=== PATIENT | male | born 1940 | race Caucasian/White ===

== ENCOUNTER 2016-02-23 17:47 | Inpatient (IN) | payer OTHER ==
[~2016-02-23] VITALS: Ht 180.3 cm; Wt 71.8 kg
[~2016-02-23 17:47] MED LIST: ASPCH81X PO; DOXA4TAB2 PO; HYDR25TA4 PO; IBUP1CAP9; RANI300T2 PO; VRP40 PO
[2016-02-23] MEDS ORDERED: MELO15TA4 PO (18:17)
[2016-02-23] MEDS ORDERED: ATEN-173 PO (18:17)
[2016-02-23] MEDS ORDERED: FRRG PO (18:17)
[2016-02-23 19:25] LABS: BASO % 0.1 %; BASO ABS # 0.01 K/uL (0-0.2); EOS % 0.4 %; HEMATOCRIT 28.3 % (42-52); IG% 0.3 %; LYMPH % 6.9 %; LYMPH ABS # 0.71 K/uL (1.2-3.4); MEAN CELL VOLUME 67.9 fL (80-100); MEAN CORPUSCULAR HEMOGLOBIN 22.8 pg (25-34); MEAN CORPUSCULAR HGB CONC 33.6 g/dl (32-36); MONO % 7.3 %; PLATELET COUNT 342 K/uL (130-400); RED BLOOD COUNT 4.17 M/uL (4.7-6.1); WHITE BLOOD COUNT 10.28 K/uL (4.8-10.8)
--- NOTE | 2016-02-23 19:40 | DIAGNOSTIC IMAGING REPORT ---
CHEST ONE VIEW PORTABLE HISTORY: Short of breath. COMPARISON: None. FINDINGS: Mildly tortuous thoracic aorta. The heart is normal in size. The lungs are clear. No pleural effusions. No pneumothorax. IMPRESSION: No acute process. Electronically signed by: Ed Lorenz M.D. 02/23/2016 7:38 PM Dictated Date/Time: 02/23/2016 7:37 PM
[2016-02-23 19:52] LABS: COMPLETE YES; MICROCYTOSIS PRESENT; PARTIAL THROMBOPLASTIN RATIO 0.9; PROTHROMBIN TIME (PATIENT) 11.2 SECONDS (9.0-12.0); TARGET CELLS 2+; VACUOLIZATION 2+
[2016-02-23 19:58] LABS: ALB/GLOB RATIO 0.6 (0.9-2); BUN/CREATININE RATIO 14.7 (10-20); CALCIUM 9.4 mg/dl (8.5-10.1); CKMB/CK RATIO 1.9 (0-3.0); CREATININE 1.6 mg/dl (0.60-1.40); POTASSIUM 4.4 mmol/L (3.5-5.1)
[2016-02-23] MEDS ORDERED: ENOXAPARIN 80 MG/0.8 ML SYR SQ SCH (20:00)
[2016-02-23] MEDS ORDERED: SODIUM CHLORIDE 0.9% 1000ML 1,000 ML IV STA (20:01)
[2016-02-23] MEDS ORDERED: NovoLIN-R INSULIN PER UNIT CHARGE SC STA (20:03)
[2016-02-23] MEDS ORDERED: NovoLIN-R INSULIN PER UNIT CHARGE IV STA (20:03)
[2016-02-23 20:11] LABS: BETA-HYDROXYBUTYRATE 3.39 mg/dL (0.2-2.81)
[2016-02-23] MEDS ORDERED: ENOXAPARIN 1 MG/KG SQ SCH (20:15)
--- NOTE | 2016-02-23 20:56 | EMERGENCY ROOM VISIT NOTE ---
History Report prepared by [place]: Brendan Velasquez Under the Supervision of: Dr. Johnathan Crockett D.O. First contact with patient: 18:14 Chief Complaint: SHORTNESS OF BREATH Stated Complaint: SOB, HYPERGLYCEMIA Nursing Triage Summary: Patient reports SOB increasing over the past with worsens with exertion, patient also reports drinkin excessive amounts of water and voiding more frequently than normal. Patient Denies chest pain at this time, dnies n/v also. History of Present Illness The patient is a 75 year old male who presents to the Emergency Room from [facility] with complaints of worsening shortness of breath beginning one week prior to arrival. He states his shortness of breath worsens with exertion. The patient associates a cough and weight loss with today's symptoms. As per custodial guards, the patient has lost 20 pounds since December. The patient states he was eating well when he lost weight, but he recently has not been eating well. He denies a history of lung problems. He denies chest pain, nausea, vomiting, pain or swelling in the legs, recent illness, and fever. The patient notes he does not use an inhaler. Source of History: patient Onset: one week FAMILY ENGAGEMENT SPECIALIST Position: other (global) Timing: worsening Modifying Factors (Worsening): exertion Associated Symptoms: + SOB, + cough, No chest pain, No fevers, No nausea, No vomiting Note: Associates symptoms: 20 pound weight loss since December Review of Systems See HPI for pertinent positives & negatives. A total of 10 systems reviewed and were otherwise negative. Past Medical & Surgical Medical Problems: (1) Arthritis (2) Diabetes (3) Hypertension Family History Patient reports no known family medical history. Social History Smoking Status: Current Every Day Smoker Marital Status: single Housing Status: other ([facility]) Occupation Status: other (prisoner) Current/Historical Medications Scheduled Ascorbic Acid (Vitamin C), 500 MG PO DAILY Aspirin (Aspirin Chewable), 81 MG PO DAILY Atenolol (Tenormin), 25 MG PO DAILY Ferrous Gluconate (Ferrous Gluconate), 324 MG PO BID Hydrochlorothiazide (Hctz), 25 MG PO DAILY Meloxicam (Meloxicam), 15 MG PO DAILY Omeprazole (Prilosec), 20 MG PO DAILY Tamsulosin HCl (Tamsulosin HCl), 0.4 MG PO DAILY Allergies Coded Allergies: Enalapril (Verified Allergy, Unknown, UNKNOWN, 02/23/16) Physical Exam Vital Signs Date Time Temp Pulse Resp B/P Pulse Ox O2 Delivery O2 Flow Rate FiO2 02/23/16 18:04 53 02/23/16 17:53 36.5 54 18 185/92 98 Room Air 02/23/16 17:53 98 Room Air Physical Exam CONSTITUTIONAL/VITAL SIGNS: Reviewed / noted above. GENERAL: Non-toxic in appearance. INTEGUMENTARY: Warm, dry, and [place]. HEAD: Normocephalic. EYES: without scleral icterus or trauma. ENT/OROPHARYNX: clear and moist. LYMPHADENOPATHY/NECK: Is supple without lymphadenopathy or meningismus. RESPIRATORY: Lungs clear and equal. CARDIOVASCULAR: Regular rate and rhythm. GI/ABDOMEN: Soft and nontender. No organomegaly or pulsatile mass. No rebound or guarding. Normal bowel sounds. EXTREMITIES: Warm and well perfused. BACK: No CVA tenderness. NEUROLOGICAL: Intact without focal deficits. PSYCHIATRIC: normal affect. MUSCULOSKELETAL: Normally developed with good muscle tone. Medical Decision & Procedures ER Provider Diagnostic Interpretation: X ray results and stated below per my interpretation and radiology interpretation. CHEST ONE VIEW PORTABLE HISTORY: Short of breath. COMPARISON: None. FINDINGS: Mildly tortuous thoracic aorta. The heart is normal in size. The lungs are clear. No pleural effusions. No pneumothorax. IMPRESSION: No acute process. Electronically signed by: Ed Lorenz M.D. 02/23/2016 7:38 PM Dictated Date/Time: 02/23/2016 7:37 PM Laboratory Results 02/23/16 19:17 Red Blood Count 4.17, Mean Corpuscular Volume 67.9, Mean Corpuscular Hemoglobin 22.8, Mean Corpuscular Hemoglobin Concent 33.6, Neutrophils (%) (Auto) 85.0, Lymphocytes (%) (Auto) 6.9, Monocytes (%) (Auto) 7.3, Eosinophils (%) (Auto) 0.4 , Basophils (%) (Auto) 0.1, Neutrophils # (Auto) 8.74, Lymphocytes # (Auto) 0.71 , Monocytes # (Auto) 0.75, Eosinophils # (Auto) 0.04, Basophils # (Auto) 0.01 02/23/16 19:17 Test 02/23/16 19:17 White Blood Count 10.28 K/uL (4.8-10.8) Red Blood Count 4.17 M/uL (4.7-6.1) Hemoglobin 9.5 g/dL (14.0-18.0) Hematocrit 28.3 % (42-52) Mean Corpuscular Volume 67.9 fL (80-100) Mean Corpuscular Hemoglobin 22.8 pg (25-34) Mean Corpuscular Hemoglobin Concent 33.6 g/dl (32-36) Platelet Count 342 K/uL (130-400) Neutrophils (%) (Auto) 85.0 % Lymphocytes (%) (Auto) 6.9 % Monocytes (%) (Auto) 7.3 % Eosinophils (%) (Auto) 0.4 % Basophils (%) (Auto) 0.1 % Neutrophils # (Auto) 8.74 K/uL (1.4-6.5) Lymphocytes # (Auto) 0.71 K/uL (1.2-3.4) Monocytes # (Auto) 0.75 K/uL (0.11-0.59) Eosinophils # (Auto) 0.04 K/uL (0-0.5) Basophils # (Auto) 0.01 K/uL (0-0.2) RDW Standard Deviation 41.7 fL (36.4-46.3) RDW Coefficient of Variation 17.3 % (11.5-14.5) Immature Granulocyte % (Auto) 0.3 % Immature Granulocyte # (Auto) 0.03 K/uL (0.00-0.02) Toxic Vacuolation 2+ Microcytosis PRESENT Target Cells 2+ Prothrombin Time 11.2 SECONDS (9.0-12.0) Prothromb Time International Ratio 1.0 (0.9-1.1) Activated Partial Thromboplast Time 22.9 SECONDS (21.0-31.0) Partial Thromboplastin Ratio 0.9 D-Dimer 4950 ug/L FEU (0-500) Anion Gap 8.0 mmol/L (3-11) Est Creatinine Clear Calc Drug Dose 40.7 ml/min Estimated GFR () 48.8 Estimated GFR (Non- 42.1 BUN/Creatinine Ratio 14.7 (10-20) Calcium Level 9.4 mg/dl (8.5-10.1) Total Bilirubin 10.5 mg/dl (0.2-1) Aspartate Amino Transf (AST/SGOT) 63 U/L (15-37) Alanine Aminotransferase (ALT/SGPT) 83 U/L (12-78) Alkaline Phosphatase 742 U/L (45-117) Total Creatine Kinase 354 U/L (39-308) Creatine Kinase MB 6.7 ng/ml (0.5-3.6) Creatine Kinase MB Ratio 1.9 (0-3.0) Troponin I 0.018 ng/ml (0-0.045) Pro-B-Type Natriuretic Peptide 496 pg/ml (0-900) Total Protein 7.0 gm/dl (6.4-8.2) Albumin 2.6 gm/dl (3.4-5.0) Globulin 4.4 gm/dl (2.5-4.0) Albumin/Globulin Ratio 0.6 (0.9-2) Beta-Hydroxybutyric Acid 3.39 mg/dL (0.2-2.81) Laboratory results as stated above per my review. Medications Administered Medications (Trade) Dose Ordered Sig/Renuka Route Start Time Stop Time Status Last Admin Dose Admin Sodium Chloride (Nss 1000ml) 1,000 ml @ 999 mls/hr Q1H1M STAT IV 02/23/16 20:01 02/23/16 21:01 02/23/16 20:01 999 MLS/HR Insulin Human Regular (novoLIN-R U-100 PER UNIT) 15 units NOW STAT SC 02/23/16 20:03 02/23/16 20:04 DC 02/23/16 20:22 15 UNITS Insulin Human Regular (novoLIN-R U-100 PER UNIT) 10 units NOW STAT IV 02/23/16 20:03 02/23/16 20:04 DC 02/23/16 20:03 10 UNITS Enoxaparin Sodium (Lovenox Inj) 70 mg Q12 SQ 02/23/16 20:00 02/23/16 23:59 02/23/16 20:44 70 MG ECG Indication: SOB/dyspnea Rate (beats per minute): 53 Rhythm: sinus bradycardia Findings: no ectopy, other (no acute injury ) ED Course 1815: Previous medical records were reviewed. The patient was evaluated in room B12B. A complete history and physical examination was performed. 2000: Ordered Lovenox Inj 70 mg SQ. 2001: Ordered Sodium Chloride 1,000 ml @ 999 mls/hr IV. 2003: Ordered Insulin Human Regular 10 units IV, Insulin Human Regular 15 units SC. 2015: Ordered Enoxaparin Sodium 1 ea SQ. 2018: I spoke to Martin Wilson (Hospitalist) about the patient's case, and he will follow the patient for further evaluation. Medical Decision the differential was considered includes acute myocardial infarction, acute coronary syndrome, myocarditis, pericarditis, pericardial effusions /tamponad, esophageal perforation, pulmonary embolism, pneumonia, pneumothorax, cardiomyopathy, congestive heart, anemia , COPD/asthma exacerbation. This is a 75-year-old male who presents to the ED with a chief complaint of shortness of breath for the past week. The patient also reports about 20 pounds weight loss over the past several weeks. The patient denies any recent illness, cough or fever. He states that shortness of breath is worse with walking. The patient denies any other significant complaints. His initial vital signs reveal hypertension. His EKG shows a sinus bradycardia rate of 53. His exam did not show any overt respiratory difficulty. He appears to be breathing comfortably and his oxygen saturations were 99% on room air. D-dimer was elevated 4950. The creatinine is 1.6. BUN is 24. Glucose was 722. Hemoglobin is 9.5 and sodium was 128. Troponin and BNP are normal. Chest x- ray did not show acute disease. The patient was treated with IV fluids as well as subcutaneous Lovenox, subcutaneous insulin and IV insulin. I spoke with the hospitalist, who will see the patient further inpatient care. Certainly DVT/PE is of concern with the elevated d-dimer. Either V/Q scan or if kidney function improves overnight, CT scan of the chest could be beneficial. Cancer is also a possibility due to the recent weight loss and apparently her blood sugars without a history of diabetes. Consults Time Called: 1999 Consulting Physician: Martin Wilson (Hospitalist) Returned Call: 2017 I spoke to Martin Wilson (Hospitalist) about the patient's case, and he will follow the patient for further evaluation. Impression Primary Impression: Hyperglycemia Additional Impressions: Renal insufficiency, Dyspnea, Electrolyte abnormality , Weight loss, Anemia, Hypertension Scribe Attestation The scribe's documentation has been prepared under my direction and personally reviewed by me in its entirety. I confirm that the note above accurately reflects all work, treatment, procedures, and medical decision making performed by me. Departure Information Dispostion Being Evaluated By Hospitalist (Martin Wilson (Hospitalist)) Referrals Elvin GIVENS (PCP)
[2016-02-23] MEDS ORDERED: INSULIN IV INFUSION PROTOCOL STA (21:26)
[2016-02-23] MEDS ORDERED: HHS GOAL RANGE 250-350 mg/dl ONE (21:30)
[2016-02-23] MEDS ORDERED: ONDANSETRON INJ 2 MG/ML 2 ML VIAL IV PRN (21:30)
[2016-02-23] MEDS ORDERED: SEVERE STRESS LEVEL ONE (21:30)
[2016-02-23] MEDS ORDERED: ACETAMINOPHEN 325 MG TAB PO PRN (21:30)
[2016-02-23] MEDS ORDERED: INSULIN IV INFUSION PROTOCOL SCH (21:45)
[2016-02-23] MEDS: INSULIN REGULAR 250 UNITS in SODIUM CHLORIDE 0.9% 250ML 250 ML IV SCH ×2 (22:20→23:55)
[2016-02-23] MEDS ORDERED: INSULIN HUMAN REGULAR IV BOLUS 2.5 UNIT in SYRINGE 0 ML IV ONE (22:30)
--- NOTE | 2016-02-23 22:40 | History and Physical ---
History & Physical Date & Time of Service: Feb 23, 2016 at 22:22 Chief Complaint: Shortness of Breath Primary Care Physician: Elvin GIVENS History of Present Illness 75 year old male who presents to the ER from [facility] for evaluation of shortness of breath. About one month ago, patient was found to have iron deficiency anemia. He had a colonoscopy that was unremarkable. Hgb at that time was 10.5, LFTs were WNL, glucose 130, and creatinine was 1.0. Patient reports increasing shortness of breath over the past one month. He reports he gets short of breath with minimal exertion. He also has had a sudden 20 pound weight loss. He notes increased thirst and urination. He has had a poor appetite and occasional nausea. No vomiting. He denies abdominal pain, diarrhea, or constipation. No change in bowel habits. He denies chest pain. No lightheadedness, dizziness, diaphoresis, or syncopal event. No fever or chills. He denies dysuria. In the ER, patient is found to have glucose 722, transaminitis, creat 1.6, and hgb 9.5. He was treated with insulin and IVF. Past Medical/Surgical History Medical Problems: (1) Arthritis Status: Chronic (2) Hypertension Status: Chronic Surgical Problems: (1) History of liver excision Permanent Comment: during cholecystectomy Status: Chronic (2) S/P cholecystectomy Status: Chronic Family History patient unsure of family history Social History Smoking Status: Current Every Day Smoker Alcohol Use: former Drug Use: none Multi-Drug Resistant Organisms History of MDRO: No Allergies Coded Allergies: Enalapril (Verified Allergy, Unknown, UNKNOWN, 02/23/16) Home Medications Scheduled Ascorbic Acid (Vitamin C), 500 MG PO DAILY Aspirin (Aspirin Chewable), 81 MG PO DAILY Atenolol (Tenormin), 25 MG PO DAILY Ferrous Gluconate (Ferrous Gluconate), 324 MG PO BID Hydrochlorothiazide (Hctz), 25 MG PO DAILY Meloxicam (Meloxicam), 15 MG PO DAILY Omeprazole (Prilosec), 20 MG PO DAILY Tamsulosin HCl (Tamsulosin HCl), 0.4 MG PO DAILY Review of Systems 10 point review of systems was completed with the pertinent positives and negatives noted per the HPI Physical Exam Vital Signs Date Time Temp Pulse Resp B/P Pulse Ox O2 Delivery O2 Flow Rate FiO2 02/23/16 22:15 128/69 02/23/16 21:52 48 17 02/23/16 21:33 185/92 02/23/16 21:22 53 27 99 02/23/16 20:52 67 17 98 02/23/16 20:47 46 18 02/23/16 20:17 47 24 02/23/16 19:47 57 15 98 02/23/16 19:17 55 10 100 02/23/16 18:47 55 22 99 02/23/16 18:17 53 15 02/23/16 18:04 53 02/23/16 17:53 36.5 54 18 185/92 98 Room Air 02/23/16 17:53 98 Room Air 02/23/16 17:52 185/92 General Appearance: no apparent distress, + cachetic Head: normocephalic Eyes: + abnormal sclerae exam (icteric) ENT: hearing grossly normal Neck: supple, no JVD Respiratory/Chest: lungs clear, normal breath sounds, no respiratory distress Cardiovascular: regular rate, rhythm, no edema, normal peripheral pulses Abdomen/GI: normal bowel sounds, non tender, soft Extremities/Musculoskelatal: normal inspection, no calf tenderness Neurologic/Psych: no motor/sensory deficits, alert, normal mood/affect, oriented x 3 Skin: normal color, warm/dry Diagnostics Laboratory Results Results Past 24 Hours Test 02/23/16 19:17 02/23/16 21:43 Range/Units White Blood Count 10.28 4.8-10.8 K/uL Red Blood Count 4.17 4.7-6.1 M/uL Hemoglobin 9.5 14.0-18.0 g/dL Hematocrit 28.3 42-52 % Mean Corpuscular Volume 67.9 80-100 fL Mean Corpuscular Hemoglobin 22.8 25-34 pg Mean Corpuscular Hemoglobin Concent 33.6 32-36 g/dl Platelet Count 342 130-400 K/uL Neutrophils (%) (Auto) 85.0 % Lymphocytes (%) (Auto) 6.9 % Monocytes (%) (Auto) 7.3 % Eosinophils (%) (Auto) 0.4 % Basophils (%) (Auto) 0.1 % Neutrophils # (Auto) 8.74 1.4-6.5 K/uL Lymphocytes # (Auto) 0.71 1.2-3.4 K/uL Monocytes # (Auto) 0.75 0.11-0.59 K/uL Eosinophils # (Auto) 0.04 0-0.5 K/uL Basophils # (Auto) 0.01 0-0.2 K/uL RDW Standard Deviation 41.7 36.4-46.3 fL RDW Coefficient of Variation 17.3 11.5-14.5 % Immature Granulocyte % (Auto) 0.3 % Immature Granulocyte # (Auto) 0.03 0.00-0.02 K/uL Toxic Vacuolation 2+ Microcytosis PRESENT Target Cells 2+ Prothrombin Time 11.2 9.0-12.0 SECONDS Prothromb Time International Ratio 1.0 0.9-1.1 Activated Partial Thromboplast Time 22.9 21.0-31.0 SECONDS Partial Thromboplastin Ratio 0.9 D-Dimer 4950 0-500 ug/L FEU Sodium Level 128 136-145 mmol/L Potassium Level 4.4 3.5-5.1 mmol/L Chloride Level 92 98-107 mmol/L Carbon Dioxide Level 28 21-32 mmol/L Anion Gap 8.0 3-11 mmol/L Blood Urea Nitrogen 24 7-18 mg/dl Creatinine 1.60 0.60-1.40 mg/dl Est Creatinine Clear Calc Drug Dose 40.7 ml/min Estimated GFR () 48.8 Estimated GFR (Non- 42.1 BUN/Creatinine Ratio 14.7 10-20 Random Glucose 722 70-99 mg/dl Calcium Level 9.4 8.5-10.1 mg/dl Total Bilirubin 10.5 0.2-1 mg/dl Aspartate Amino Transf (AST/SGOT) 63 15-37 U/L Alanine Aminotransferase (ALT/SGPT) 83 12-78 U/L Alkaline Phosphatase 742 45-117 U/L Total Creatine Kinase 354 39-308 U/L Creatine Kinase MB 6.7 0.5-3.6 ng/ml Creatine Kinase MB Ratio 1.9 0-3.0 Troponin I 0.018 0-0.045 ng/ml Pro-B-Type Natriuretic Peptide 496 0-900 pg/ml Total Protein 7.0 6.4-8.2 gm/dl Albumin 2.6 3.4-5.0 gm/dl Globulin 4.4 2.5-4.0 gm/dl Albumin/Globulin Ratio 0.6 0.9-2 Beta-Hydroxybutyric Acid 3.39 0.2-2.81 mg/dL Bedside Glucose 405 70-99 mg/dl Diagnostic Radiology CXR IMPRESSION: No acute process. Impression Assessment and Plan SEVERE HYPERGLYCEMIA - admit to tele - presenting with blood sugar 722, noted to be 130 on outpatient labs from - no signs of acidosis - start insulin gtt - IVF - check hgb a1c JEANA - likely due to severe hyperglycemia - IVF - hold HCTZ - follow up labs in AM, avoid nephrotoxic agents when able PSEUDOHYPONATREMIA - due to hypoglycemia - corrected Na+ 138 SHORTNESS OF BREATH - need to rule out PE with concern for possible underlying malignancy - unable to do CTA due to renal function - should improve with IVF; will do in AM if renal function improves - received therapeutic dose Lovenox x 1 in ED; hold on further anticoagulation for now TRANSAMINITIS - check RUQ US to r/o obstruction - concern for underlying malignancy due to weight loss and anemia - if renal function improved in AM, will get CT abd/pelvis with contrast ANEMIA - hgb 9.5, no role for transfusion at this time - colonoscopy 01/2016 negative per note sent from [facility] - continue to monitor hgb HTN - BP elevated on arrival, however now improved - holding HCTZ due to JEANA and holding atenolol due to bradycardia - PRN hydralazine for now BRADYCARDIA - HR noted to be 40s-50s during my exam - EKG shows sinus bradycardia - holding beta sade - monitor in tele DVT PROPHYLAXIS - received therapeutic dose Lovenox x 1 - will cover until AM CODE STATUS - Patient is a full code as per my discussion with him. DISPO - In my clinical judgment this beneficiary meets acute admission criteria, established by [facility], that includes being hospitalized through two midnights. ADDENDUM: This is a 75 year old male who comes from [facility] due to shortness of breath and decreased PO intake with a 20lbs unintentional weight loss in the past month. He has a history of HTN, but no other issues to note. He had a routine colonoscopy last month with no findings. Upon presentation here; he was found to have multiple problems on lab work, including a blood sugar level of > 700. He had elevated transaminases, elevated d-dimer, elevated creat level. Plan for the patient: Start insulin drip, give IVFs Once creat improves; obtain CTA chest to r/o PE, obtain CT abdomen/pelvis as well due to elevated transaminases concern for malignancy with unintentional weight loss and multiple lab abnormalities VTE Prophylaxis VTE Risk Assessment Done? Y/N: Yes Risk Level: Moderate
[2016-02-23] MEDS ORDERED: HydrALAZINE HCL 20 MG/ML VIAL IV. PRN (22:45)
[2016-02-23] MEDS ORDERED: SODIUM CHLORIDE 0.9% 1000ML 1,000 ML IV SCH (22:45)
[2016-02-23] MEDS ORDERED: GLUCOSE 10 TABS/TUBE PO PRN (23:00)
[2016-02-23] MEDS ORDERED: GLUCOSE 40% GEL 15 GM TUBE PO PRN (23:00)
[2016-02-23] MEDS ORDERED: GLUCAGON FOR INJ 1 MG VIAL SQ PRN (23:00)
[2016-02-23] MEDS ORDERED: DEXTROSE 50% 50 ML SYR IV PRN (23:00)
[2016-02-23 23:10] VITALS: BP 125/79; PULSE 62; TEMP 36.7; O2SAT 100; BMI 19.7
[2016-02-24] VITALS (9 sets, daily range): BP systolic 128–168; BP diastolic 71–97; PULSE 39–58; TEMP 36.6–36.9; O2SAT 99–100; Ht 180.3 cm; Wt 71.8 kg
[2016-02-24] MEDS: D5W AND NSS 1,000 ML IV SCH ×2 (02:33→10:28)
[2016-02-24] MEDS ORDERED: PHARMACY GLYCEMIC MGMT CONSULT PRN (02:45)
[2016-02-24] MEDS: INSULIN REGULAR 250 UNITS in SODIUM CHLORIDE 0.9% 250ML 250 ML IV SCH ×5 (03:15→13:05)
[2016-02-24 06:25] LABS: ESTIMATED AVERAGE GLUCOSE 229 mg/dl; HA1C FLAG Normal (Normal)
--- NOTE | 2016-02-24 06:51 | DIAGNOSTIC IMAGING REPORT ---
BILIARY ULTRASOUND CLINICAL HISTORY: Abnormal liver functions COMPARISON STUDY: No previous studies for comparison. FINDINGS: The gallbladder surgically absent. There is intrahepatic biliary ductal dilatation. There is dilatation of the common bile duct which measures 2.6 cm. The liver is subtly heterogeneous in echotexture. The pancreas was poorly visualized. There is equivocal soft tissue mass in the region of the pancreatic head. There is no right-sided hydronephrosis. IMPRESSION: 1. Intra and extrahepatic biliary ductal dilatation. Equivocal soft tissue mass in the region of the pancreatic head. CT scanning should be considered in follow-up. Electronically signed by: Derrick Way M.D. 02/24/2016 6:49 AM Dictated Date/Time: 02/24/2016 6:46 AM
[2016-02-24 07:31] LABS: HEMATOCRIT 27.4 % (42-52); MEAN CELL VOLUME 68.3 fL (80-100); MEAN CORPUSCULAR HEMOGLOBIN 22.9 pg (25-34); MEAN CORPUSCULAR HGB CONC 33.6 g/dl (32-36); PLATELET COUNT 325 K/uL (130-400); RED BLOOD COUNT 4.01 M/uL (4.7-6.1); WHITE BLOOD COUNT 10.48 K/uL (4.8-10.8)
[2016-02-24] MEDS: TAMSULOSIN HCL 0.4 MG CAP PO SCH (07:58)
[2016-02-24] MEDS: PANTOprazole SOD 40 MG TAB PO SCH (07:58)
[2016-02-24] MEDS: FERROUS GLUCONATE 324 MG TAB PO SCH ×2 (07:58→20:45)
[2016-02-24] MEDS: ASPIRIN 81 MG ECTAB PO SCH (07:58)
[2016-02-24] MEDS ORDERED: INSULIN ASPART 100 UNITS/ML 3 ML PEN SC SCH (08:00)
[2016-02-24 08:20] LABS: BUN/CREATININE RATIO 19.7 (10-20); CALCIUM 9.4 mg/dl (8.5-10.1); CREATININE 1.1 mg/dl (0.60-1.40); POTASSIUM 3.6 mmol/L (3.5-5.1)
[2016-02-24] MEDS ORDERED: INSULIN GLARGINE SOLOSTAR 100 UNITS/ML 3 ML PEN SC SCH (09:45)
[2016-02-24] MEDS ORDERED: OPTIRAY 320 IV PRN (10:00)
[2016-02-24] MEDS: INSULIN ASPART 100 UNITS/ML 3 ML PEN SC SCH ×3 (11:00→20:44)
--- NOTE | 2016-02-24 16:20 | Pharmacy Progress Note ---
Glycemic Control Intl Consult Date of Service Feb 24, 2016. Scope Glycemic Pharmacist consulted by Elias OMER on 02/23/16 for glycemic control and to write orders per [facility] inpatient glycemic control protocol Objective Weight (Kilograms): 64.500 Accuchecks BSG (last 24hrs): Test 02/23/16 19:17 02/23/16 21:43 02/23/16 23:18 02/24/16 00:59 Random Glucose 722 mg/dl (70-99) Bedside Glucose 405 mg/dl (70-99) 260 mg/dl (70-99) 205 mg/dl (70-99) Test 02/24/16 01:22 02/24/16 02:13 02/24/16 03:23 02/24/16 04:14 Bedside Glucose 214 mg/dl (70-99) 186 mg/dl (70-99) 223 mg/dl (70-99) 210 mg/dl (70-99) Test 02/24/16 05:29 02/24/16 06:33 02/24/16 06:55 02/24/16 07:50 Bedside Glucose 166 mg/dl (70-99) 162 mg/dl (70-99) 114 mg/dl (70-99) Random Glucose 96 mg/dl (70-99) Test 02/24/16 08:07 02/24/16 08:33 02/24/16 08:53 02/24/16 09:56 Bedside Glucose 99 mg/dl (70-99) 120 mg/dl (70-99) 175 mg/dl (70-99) 247 mg/dl (70-99) Test 02/24/16 10:59 02/24/16 12:13 02/24/16 13:18 02/24/16 14:43 Bedside Glucose 220 mg/dl (70-99) 215 mg/dl (70-99) 235 mg/dl (70-99) 218 mg/dl (70-99) Test 02/24/16 15:35 Bedside Glucose 139 mg/dl (70-99) Laboratory Data (last 24hrs) Test 02/23/16 19:17 02/24/16 06:55 Anion Gap 8.0 mmol/L 10.0 mmol/L BUN/Creatinine Ratio 14.7 19.7 Blood Urea Nitrogen 24 mg/dl 22 mg/dl Creatinine 1.60 mg/dl 1.10 mg/dl Hemoglobin A1c 9.6 % Potassium Level 4.4 mmol/L 3.6 mmol/L Sodium Level 128 mmol/L 139 mmol/L White Blood Count 10.28 K/uL 10.48 K/uL Red Blood Count 4.17 M/uL Hemoglobin 9.5 g/dL Hematocrit 28.3 % Mean Corpuscular Volume 67.9 fL Mean Corpuscular Hemoglobin 22.8 pg Mean Corpuscular Hemoglobin Concent 33.6 g/dl Platelet Count 342 K/uL Neutrophils (%) (Auto) 85.0 % Lymphocytes (%) (Auto) 6.9 % Monocytes (%) (Auto) 7.3 % Eosinophils (%) (Auto) 0.4 % Basophils (%) (Auto) 0.1 % Neutrophils # (Auto) 8.74 K/uL Lymphocytes # (Auto) 0.71 K/uL Monocytes # (Auto) 0.75 K/uL Eosinophils # (Auto) 0.04 K/uL Basophils # (Auto) 0.01 K/uL HbA1c Test 02/23/16 19:17 Hemoglobin A1c 9.6 % (4.5-5.6) H Recent Pertinent Medications Outpatient Anti-diabetic Regimen: * N/A * A1c = 9.6 % 02/23/16 The patient is currently receiving: * Basal insulin: Insulin drip per infusion rate calculator * Correctional Insulin: per insulin infusion rate calculator * Prandial insulin: Per carb ratio per insulin infusion rate calculator * Oral Agents: none Risk Factors for Insulin Resistance: * Steroids: no * Infection: no * Pressors: no * IVF: D5NS @ 125 ml/hr, now dc'd * Recent Surgery: no * Diet: type 2 diabetic * Mechanical Ventilation: no Assessment & Plan ASSESSMENT: * ADA & AACE recommend a goal blood sugar range 140-180 mg/dl for the majority of critically ill & non-critically ill patients. However, more stringent targets may be selected in individual cases. * 75 yo previously undiagnosed diabetic. Admitted with SOB, BSG's over 700. Recent 20 lb wt loss, polydipsia, polyuria. Insulin drip started and BSG's now in goal range. Will transition to SQ basal/bolus insulin (weight-based). PLAN FOR INPATIENT GLYCEMIC CONTROL: * Basal insulin with LANTUS 15 units SQ x 1 dose, then 10 units BID, give 1/2 dose if BSG is less than 110 * Continue insulin drip per protocol (new goal range 140-180) for 6 hr after 1st dose of Lantus, or until titrated off by insulin infusion rate calculator, whichever comes first. * Correctional Insulin with NOVOLOG per scale ACHS or Q6hrs while NPO * Goal Range: Low 110 mg/dL - High 150 mg/dL * Correction Factor: 35 mg/dL/unit * Nutritional / Prandial insulin per carb ratio of 1 unit per 15 grams CHO consumed * Please note that the plan above was derived based on current level of insulin resistance and hospital stress. These recommendations are appropriate for inpatient admission only. Plan of care upon discharge will need to be reassessed to avoid potential outpatient hypo/hyperglycemia. Thank you.
--- NOTE | 2016-02-24 17:03 | DIAGNOSTIC IMAGING REPORT ---
CHEST CTA for PULMONARY ARTERIES CT DOSE: 1018.05 mGy.cm HISTORY: Short of breath. TECHNIQUE: Multiaxial CT images of the chest were performed following the intravenous administration of contrast to evaluate the pulmonary arteries. Maximal intensity projection images were also obtained. COMPARISON STUDY: Abdomen and pelvis CT 02/24/2016. FINDINGS: Normal caliber thoracic aorta with no evidence for dissection. Trace right pleural effusion. No pericardial effusion. There are few scattered segmental and subsegmental pulmonary emboli. This is most pronounced within the bilateral lower lobes. The main and lobar pulmonary arteries are patent. Small sclerotic focus within the left lateral ninth rib favors a bone island. No suspicious lytic or blastic osseous lesions. No pneumothorax. Mild emphysema. The central airways are patent. Mild dependent changes seen within the right lung base posteriorly. No focal lung consolidations to suggest pneumonia. Severe biliary and pancreatic duct dilatation. Partially visualized pancreatic mass. There are few hypodense lesions within the liver consistent with metastatic disease. Questionable 12 mm soft tissue nodule abutting the anterior pericardium. This is immediately deep to the xiphoid. No mediastinal or hilar lymphadenopathy. IMPRESSION: 1. Multiple scattered bilateral segmental and subsegmental pulmonary emboli. 2. Trace right pleural effusion. 3. Emphysema. 4. Pancreatic mass with associated biliary and pancreatic duct dilatation. There are also a few hepatic metastatic lesions. Please refer to the same day abdomen CT for further evaluation. 5. Possible 12 mm soft tissue nodule abutting the anterior pericardium. Follow-up is recommended to exclude the possibility of a metastatic lesion. Electronically signed by: Ed Lorenz M.D. 02/24/2016 5:01 PM Dictated Date/Time: 02/24/2016 4:51 PM
--- NOTE | 2016-02-24 17:05 | DIAGNOSTIC IMAGING REPORT ---
CT OF THE ABDOMEN AND PELVIS WITH AND WITHOUT CONTRAST PANCREAS PROTOCOL CLINICAL HISTORY: Possible pancreatic mass. Elevated bilirubin. TECHNIQUE: Enhanced, arterial and venous phase was performed. Injection of 119 cc Optiray 320 IV was uneventful. Oral contrast was administered. COMPARISON STUDY: Right upper quadrant ultrasound February 23, 2016. FINDINGS: The chest will be reported separately. There are numerous peripherally hypervascular bilobar hepatic lesions that measure up to 1.8 cm. These are consistent with metastases. There is marked intra and extra hepatic biliary ductal dilatation with abrupt narrowing of the distal common bile duct. This is likely due to a mass within the uncinate process and head of the pancreas. Exact measurements of the mass are difficult to obtain but this mass measures up to 5.5 x 4.4 cm. There is marked dilatation of the pancreatic duct with abrupt cut off at the level of this mass. There are pancreatic parenchymal calcifications. A few enlarged peripancreatic lymph nodes are noted. These may be necrotic. These measure up to 1.9 cm in short axis diameter. There is moderate narrowing of the portosplenic confluence. The portal vein remains patent. There are numerous renal cysts. There is moderate renal atrophy with multifocal scarring. The spleen and adrenal glands are unremarkable. There is no evidence for a bowel obstruction. Evaluation is difficult given a paucity of fat. There is extensive atherosclerotic plaque of the Major vessels. The abdominal aorta is ectatic, measuring up to 2.9 cm. No suspicious osseous lesions are present. There is no ascites. The superior mesenteric artery is patent. IMPRESSION: 1. Findings highly suggestive of metastatic pancreatic adenocarcinoma. Uncinate process/pancreatic head mass measuring approximately 5.5 cm with associated biliary and pancreatic ductal dilatation, numerous hepatic metastases and several pathologic peripancreatic lymph nodes. GI consultation for consideration for endoscopic sampling is recommended. 2. Pancreatic parenchymal calcifications suggestive of chronic pancreatitis. Electronically signed by: Zheng Bennett M.D. 02/24/2016 5:03 PM Dictated Date/Time: 02/24/2016 4:51 PM
[2016-02-24] MEDS ORDERED: HEPARIN IV LOW DOSE NO BOLUS SCH (18:15)
--- NOTE | 2016-02-24 18:27 | Progress Note ---
Medicine Progress Note Date & Time of Visit: Feb 24, 2016 at 18:11. Subjective Patient seen and examined. Feels that his breathing has improved today. Denies any abdominal pain. Does feel itchy. Objective Last 8 Hrs Date Time Temp Pulse Resp B/P Pulse Ox O2 Delivery O2 Flow Rate FiO2 02/24/16 15:34 36.8 43 16 153/91 100 Room Air 02/24/16 12:24 Room Air 02/24/16 11:36 36.6 39 18 168/79 100 Room Air Physical Exam: General-awake; alert; NAD Eyes-EOMI; muddy sclera Neck-no stridor; trachea midline Lungs-CTA bilaterally; no wheezes/crackles Heart-RRR; no m/r/g Abdomen-soft; mild upper quadrant tenderness to palpation; ND; nBS Extremities-no c/c/e; no deformity Neuro-no gross focal deficits Laboratory Results: Last 24 Hours Test 02/23/16 19:17 02/23/16 21:43 02/23/16 23:18 02/24/16 00:59 White Blood Count 10.28 K/uL Red Blood Count 4.17 M/uL Hemoglobin 9.5 g/dL Hematocrit 28.3 % Mean Corpuscular Volume 67.9 fL Mean Corpuscular Hemoglobin 22.8 pg Mean Corpuscular Hemoglobin Concent 33.6 g/dl Platelet Count 342 K/uL Neutrophils (%) (Auto) 85.0 % Lymphocytes (%) (Auto) 6.9 % Monocytes (%) (Auto) 7.3 % Eosinophils (%) (Auto) 0.4 % Basophils (%) (Auto) 0.1 % Neutrophils # (Auto) 8.74 K/uL Lymphocytes # (Auto) 0.71 K/uL Monocytes # (Auto) 0.75 K/uL Eosinophils # (Auto) 0.04 K/uL Basophils # (Auto) 0.01 K/uL RDW Standard Deviation 41.7 fL RDW Coefficient of Variation 17.3 % Immature Granulocyte % (Auto) 0.3 % Immature Granulocyte # (Auto) 0.03 K/uL Toxic Vacuolation 2+ Microcytosis PRESENT Target Cells 2+ Prothrombin Time 11.2 SECONDS Prothromb Time International Ratio 1.0 Activated Partial Thromboplast Time 22.9 SECONDS Partial Thromboplastin Ratio 0.9 D-Dimer 4950 ug/L FEU Sodium Level 128 mmol/L Potassium Level 4.4 mmol/L Chloride Level 92 mmol/L Carbon Dioxide Level 28 mmol/L Anion Gap 8.0 mmol/L Blood Urea Nitrogen 24 mg/dl Creatinine 1.60 mg/dl Est Creatinine Clear Calc Drug Dose 40.7 ml/min Estimated GFR () 48.8 Estimated GFR (Non- 42.1 BUN/Creatinine Ratio 14.7 Random Glucose 722 mg/dl Estimated Average Glucose 229 mg/dl Hemoglobin A1c 9.6 % Calcium Level 9.4 mg/dl Total Bilirubin 10.5 mg/dl Aspartate Amino Transf (AST/SGOT) 63 U/L Alanine Aminotransferase (ALT/SGPT) 83 U/L Alkaline Phosphatase 742 U/L Total Creatine Kinase 354 U/L Creatine Kinase MB 6.7 ng/ml Creatine Kinase MB Ratio 1.9 Troponin I 0.018 ng/ml Pro-B-Type Natriuretic Peptide 496 pg/ml Total Protein 7.0 gm/dl Albumin 2.6 gm/dl Globulin 4.4 gm/dl Albumin/Globulin Ratio 0.6 Beta-Hydroxybutyric Acid 3.39 mg/dL Bedside Glucose 405 mg/dl 260 mg/dl 205 mg/dl Test 02/24/16 01:22 02/24/16 02:13 02/24/16 03:23 02/24/16 04:14 Bedside Glucose 214 mg/dl 186 mg/dl 223 mg/dl 210 mg/dl Test 02/24/16 05:29 02/24/16 06:33 02/24/16 06:55 02/24/16 07:50 Bedside Glucose 166 mg/dl 162 mg/dl 114 mg/dl White Blood Count 10.48 K/uL Red Blood Count 4.01 M/uL Hemoglobin 9.2 g/dL Hematocrit 27.4 % Mean Corpuscular Volume 68.3 fL Mean Corpuscular Hemoglobin 22.9 pg Mean Corpuscular Hemoglobin Concent 33.6 g/dl RDW Standard Deviation 43.0 fL RDW Coefficient of Variation 17.4 % Platelet Count 325 K/uL Sodium Level 139 mmol/L Potassium Level 3.6 mmol/L Chloride Level 102 mmol/L Carbon Dioxide Level 27 mmol/L Anion Gap 10.0 mmol/L Blood Urea Nitrogen 22 mg/dl Creatinine 1.10 mg/dl Est Creatinine Clear Calc Drug Dose 54.6 ml/min Estimated GFR () 76.8 Estimated GFR (Non- 66.2 BUN/Creatinine Ratio 19.7 Random Glucose 96 mg/dl Calcium Level 9.4 mg/dl Total Bilirubin 9.1 mg/dl Direct Bilirubin 8.1 mg/dl Aspartate Amino Transf (AST/SGOT) 65 U/L Alanine Aminotransferase (ALT/SGPT) 73 U/L Alkaline Phosphatase 661 U/L Total Protein 6.4 gm/dl Albumin 2.2 gm/dl Test 02/24/16 08:07 02/24/16 08:33 02/24/16 08:53 02/24/16 09:56 Bedside Glucose 99 mg/dl 120 mg/dl 175 mg/dl 247 mg/dl Test 02/24/16 10:59 02/24/16 12:13 02/24/16 13:18 02/24/16 14:43 Bedside Glucose 220 mg/dl 215 mg/dl 235 mg/dl 218 mg/dl Test 02/24/16 15:35 02/24/16 16:03 02/24/16 16:24 Bedside Glucose 139 mg/dl 130 mg/dl 108 mg/dl Assessment & Plan POSSIBLE METASTATIC PANCREATIC CANCER - patient with unintentional weight loss over the past month - liver ultrasound with intra and extrahepatic biliary ductal dilatation and soft tissue mass in pancreatic head - CT a/p highly suggestive of metastatic pancreatic adenocarcinoma - GI consulted BILATERAL PE - likely related to underlying malignancy - start low dose heparin drip SEVERE HYPERGLYCEMIA - improved - on admission - started on insulin drip and was transitioned to insulin sq - hgb a1c of 9.6 - glycemic pharmacy consulted JEANA - resolved - likely due to severe hyperglycemia - resolved with IVF - hold HCTZ ANEMIA - hgb stable in 's - colonoscopy 01/2016 negative per note sent from [facility] - check folate, b12 and iron studies - may be related to underlying malignancy HTN - BP elevated on arrival, however improved - holding HCTZ and atenolol - PRN hydralazine for now BRADYCARDIA - HR 40s-50s - EKG shows sinus bradycardia - holding beta sade - monitor in tele DVT PROPHYLAXIS - heparin drip CODE STATUS - full code Consultants: Gastroenterology Procedures: Liver ultrasound 1. Intra and extrahepatic biliary ductal dilatation. Equivocal soft tissue mass in the region of the pancreatic head. CT scanning should be considered in follow -up. CT Chest 1. Multiple scattered bilateral segmental and subsegmental pulmonary emboli. 2. Trace right pleural effusion. 3. Emphysema. 4. Pancreatic mass with associated biliary and pancreatic duct dilatation. There are also a few hepatic metastatic lesions. Please refer to the same day abdomen CT for further evaluation. 5. Possible 12 mm soft tissue nodule abutting the anterior pericardium. Follow- up is recommended to exclude the possibility of a metastatic lesion. CT a/p 1. Findings highly suggestive of metastatic pancreatic adenocarcinoma. Uncinate process/pancreatic head mass measuring approximately 5.5 cm with associated biliary and pancreatic ductal dilatation, numerous hepatic metastases and several pathologic peripancreatic lymph nodes. GI consultation for consideration for endoscopic sampling is recommended. 2. Pancreatic parenchymal calcifications suggestive of chronic pancreatitis. Current Inpatient Medications: Current Inpatient Medications Medications (Trade) Dose Ordered Sig/Renuka Route Start Time Stop Time Status Last Admin Dose Admin Acetaminophen (Tylenol Tab) 650 mg Q4H PRN PO 02/23/16 21:30 03/24/16 21:29 Ondansetron HCl (Zofran Inj) 4 mg Q6H PRN IV 02/23/16 21:30 03/24/16 21:29 Aspirin (Ecotrin Tab) 81 mg QAM PO 02/24/16 09:00 03/25/16 08:59 02/24/16 07:58 81 MG Ferrous Gluconate (Ferrous Gluconate Tab) 324 mg BID PO 02/24/16 09:00 03/25/16 08:59 02/24/16 07:58 324 MG Tamsulosin HCl (Flomax Cap) 0.4 mg DAILY PO 02/24/16 09:00 03/25/16 08:59 02/24/16 07:58 0.4 MG Pantoprazole Sodium (Protonix Tab) 40 mg QAM PO 02/24/16 09:00 03/25/16 08:59 02/24/16 07:58 40 MG Hydralazine HCl (HydrALAZINE INJ) 10 mg Q6H PRN IV. 02/23/16 22:45 03/24/16 22:44 Glucose (Glucose 40% Gel) 15-30 GRAMS 15 GRAMS... UD PRN PO 02/23/16 23:00 03/24/16 22:59 Glucose (Glucose Chew Tab) 4-8 Tablets 4 Tabl... UD PRN PO 02/23/16 23:00 03/24/16 22:59 Dextrose (Dextrose 50% 50ML Syringe) 25-50ML OF 50% DW IV FOR... UD PRN IV 02/23/16 23:00 03/24/16 22:59 Glucagon (Glucagon Inj) 1 mg UD PRN SQ 02/23/16 23:00 03/24/16 22:59 Miscellaneous Information (Consult Glycemic Management Pharmacy) 1 ea UD PRN N/A 02/24/16 02:45 03/25/16 02:44 Insulin Glargine (Lantus Solostar Pen) 10 unit BID SC 02/24/16 21:00 03/25/16 20:59 Insulin Aspart (novoLOG ASPART) SLIDING SCALE ACHS SC 02/24/16 11:00 03/25/16 10:59 02/24/16 11:00 2 UNITS Ioversol (Optiray 320) 125 ml UD PRN IV 02/24/16 10:00 02/28/16 09:59
[2016-02-24 18:54] LABS: HEMATOCRIT 28.7 % (42-52); MEAN CELL VOLUME 68.8 fL (80-100); MEAN CORPUSCULAR HEMOGLOBIN 23.5 pg (25-34); PLATELET COUNT 325 K/uL (130-400); RED BLOOD COUNT 4.17 M/uL (4.7-6.1); WHITE BLOOD COUNT 10.43 K/uL (4.8-10.8)
[2016-02-24 19:06] LABS: INR 1.1 (0.9-1.1); MEAN CORPUSCULAR HGB CONC 34.1 g/dl (32-36); PARTIAL THROMBOPLASTIN RATIO 0.9; PROTHROMBIN TIME (PATIENT) 11.3 SECONDS (9.0-12.0)
[2016-02-24] MEDS: HEPARIN 25,000 UNIT/500ML D5W 500 ML IV PRN (19:27)
[2016-02-24] MEDS: INSULIN GLARGINE SOLOSTAR 100 UNITS/ML 3 ML PEN SC SCH (20:44)
[2016-02-25] VITALS (12 sets, daily range): BP systolic 107–180; BP diastolic 60–96; PULSE 57–99; TEMP 36.8–37; O2SAT 99–100
[2016-02-25 01:32] LABS: BASO % 0.1 %; BASO ABS # 0.01 K/uL (0-0.2); EOS % 1.6 %; HEMATOCRIT 26.1 % (42-52); IG% 0.4 %; LYMPH ABS # 0.97 K/uL (1.2-3.4); MEAN CELL VOLUME 68.1 fL (80-100); MEAN CORPUSCULAR HEMOGLOBIN 23.5 pg (25-34); MONO % 8.2 %; NEUT % 80.7 %; PLATELET COUNT 299 K/uL (130-400); RED BLOOD COUNT 3.83 M/uL (4.7-6.1); WHITE BLOOD COUNT 10.79 K/uL (4.8-10.8)
[2016-02-25 01:34] LABS: MEAN CORPUSCULAR HGB CONC 34.5 g/dl (32-36)
[2016-02-25 01:41] LABS: PARTIAL THROMBOPLASTIN RATIO 1.1
[2016-02-25 01:56] LABS: COMPLETE YES; MICROCYTOSIS PRESENT; TARGET CELLS 2+
[2016-02-25] MEDS ORDERED: HEPARIN IV BOLUS 4,500 UNIT in SYRINGE 0 ML IV STA (03:14)
[2016-02-25] MEDS: HEPARIN 25,000 UNIT/500ML D5W 500 ML IV PRN ×5 (03:45→22:40)
[2016-02-25 06:38] LABS: HEMATOCRIT 26.3 % (42-52); MEAN CELL VOLUME 66.4 fL (80-100); MEAN CORPUSCULAR HEMOGLOBIN 23.2 pg (25-34); PLATELET COUNT 319 K/uL (130-400); RED BLOOD COUNT 3.96 M/uL (4.7-6.1)
[2016-02-25] MEDS: INSULIN ASPART 100 UNITS/ML 3 ML PEN SC SCH ×5 (06:50→21:32)
[2016-02-25 06:58] LABS: PARTIAL THROMBOPLASTIN RATIO 2.3
[2016-02-25 07:11] LABS: ALB/GLOB RATIO 0.5 (0.9-2); BUN/CREATININE RATIO 13.3 (10-20); CALCIUM 8.9 mg/dl (8.5-10.1); FERRITIN 906.4 ng/ml (8.0-388.0); POTASSIUM 3.5 mmol/L (3.5-5.1)
[2016-02-25] MEDS: ASPIRIN 81 MG ECTAB PO SCH (08:06)
[2016-02-25] MEDS: FERROUS GLUCONATE 324 MG TAB PO SCH (08:07)
[2016-02-25] MEDS: PANTOprazole SOD 40 MG TAB PO SCH (08:07)
[2016-02-25] MEDS: TAMSULOSIN HCL 0.4 MG CAP PO SCH (08:07)
[2016-02-25] MEDS: INSULIN GLARGINE SOLOSTAR 100 UNITS/ML 3 ML PEN SC SCH (08:09)
--- NOTE | 2016-02-25 11:25 | Gastrointestinal Consultation ---
Gastrointestinal Consultation Date of Consultation: Feb 25, 2016 Attending Physician: Dr. Kim Walter Consulting Physician: Dr. Vinnie Mccain Reason for Consultation: Eval for possible metastatic pancreas cancer History of Present Illness Patient is a 75 year old male inmate from [facility] who was admitted currently for hyperglycemia management. He has hx of iron deficiency anemia, had SOB on exertion accompanied by increased thirst, urination and about 20lbs weight loss within last month. He was found to have glucose of 722 on admission , treated w insulin. He was also noted to have elevated LFTs on admission: Tbili 11, Dbili 8.1, AST 84, ALT 73, Alk phos 647. Liver u/s obtained and revealed intra/extra hepatic biliary ductal dilation. CBD measured 2.3cm. He also has a soft tissue mass in pancreas head region. This was followed by CT abd /pelvis and also Chest CTA given SOB on exertion. CTA showed scattered bilateral PEs, R pleural effusion, emphysema. He is currently on Heparin gtt. CT abd/pelvis showed again intra/extra hepatic biliary dilation, narrowing of distal CBD. Mass on pancreas head and within the uncinate area measured up to 5.5 x 4.4 cm. Pancreatic parenchyma calcification suggestive of pancreatitis. There is also marked dilation of pancreatic duct, some peripancreatic lymph node enlargement. Portal vein, SMA patent. He also has numerous hepatic masses suspicious for metastatic lesion. He denies any fever, chills, + SOB w exertion, no CP. Some RUQ abd pain, no n/v , urine has been dark x 2 week, normal colored stool no constipation or diarrhea issues. Past Medical/Surgical History Medical Problems: (1) Hypertension Status: Chronic Past Medical History: Arthritis HTN Past Surgical History: Cholecystectomy Family History Patient reports no known family medical history. Social History Smoking Status: Current Every Day Smoker Alcohol Use: other (hx of heavy etoh use) Drug Use: none Housing Status: other ([facility]) Allergies Coded Allergies: Enalapril (Verified Allergy, Unknown, UNKNOWN, 02/23/16) Current Medications Home Meds and Scripts Medications Dose Route/Sig Max Daily Dose Days Date Category Vitamin C (Ascorbic Acid) 500 Mg Tab 500 Mg PO DAILY 02/23/16 Reported Tamsulosin HCl 0.4 Mg Cap 0.4 Mg PO DAILY 02/23/16 Reported Prilosec (Omeprazole) 20 Mg Capcr 20 Mg PO DAILY 02/23/16 Reported Meloxicam 15 Mg Tab 15 Mg PO DAILY 02/23/16 Reported Ferrous Gluconate 324 Mg Tab 324 Mg PO BID 02/23/16 Reported Tenormin (Atenolol) 25 Mg Tab 25 Mg PO DAILY 02/23/16 Reported Hctz (Hydrochlorothiazide) 25 Mg Tab 25 Mg PO DAILY 01/01/13 Reported Aspirin Chewable (Aspirin) 81 Mg Chew 81 Mg PO DAILY 01/01/13 Reported Review of Systems Constitutional: No chills, No fever Respiratory: No cough Cardiac: No chest pain Abdomen: + pain, No constipation, No diarrhea, No nausea, No vomiting Male : + see HPI Physical Exam Date Time Temp Pulse Resp B/P Pulse Ox O2 Delivery O2 Flow Rate FiO2 02/25/16 09:57 65 107/69 02/25/16 08:35 180/91 02/25/16 08:26 36.8 99 20 180/91 99 Room Air 02/25/16 08:00 Room Air 02/25/16 04:13 36.9 59 22 164/91 100 Room Air 02/25/16 04:00 100 Room Air 02/25/16 00:01 100 Room Air 02/24/16 23:48 36.9 57 19 159/89 100 Room Air 02/24/16 20:13 36.9 58 18 158/97 99 Room Air 02/24/16 20:00 100 Nasal Cannula 02/24/16 20:00 Room Air 02/24/16 16:00 100 Nasal Cannula 02/24/16 15:34 36.8 43 16 153/91 100 Room Air 02/24/16 12:24 Room Air 02/24/16 11:36 36.6 39 18 168/79 100 Room Air General Appearance: + thin Eyes: + pertinent finding (icteric sclera) Neck: supple, no JVD, trachea midline Respiratory/Chest: no respiratory distress, no accessory muscle use, + decreased breath sounds Cardiovascular: regular rate, rhythm, no gallop, no murmur Abdomen: soft, + tenderness (RUQ, periumbilical), + mass (L mid abd area) Extremities: normal inspection, no pedal edema, no calf tenderness Neurologic/Psych: alert, normal mood/affect, oriented x 3 Laboratory Results Last 24 Hours Test 02/24/16 12:13 02/24/16 13:18 02/24/16 14:43 02/24/16 15:35 Bedside Glucose 215 mg/dl 235 mg/dl 218 mg/dl 139 mg/dl Test 02/24/16 16:03 02/24/16 16:24 02/24/16 18:40 02/24/16 20:06 Bedside Glucose 130 mg/dl 108 mg/dl 187 mg/dl White Blood Count 10.43 K/uL Red Blood Count 4.17 M/uL Hemoglobin 9.8 g/dL Hematocrit 28.7 % Mean Corpuscular Volume 68.8 fL Mean Corpuscular Hemoglobin 23.5 pg Mean Corpuscular Hemoglobin Concent 34.1 g/dl RDW Standard Deviation 43.1 fL RDW Coefficient of Variation 17.6 % Platelet Count 325 K/uL Prothrombin Time 11.3 SECONDS Prothromb Time International Ratio 1.1 Activated Partial Thromboplast Time 24.1 SECONDS Partial Thromboplastin Ratio 0.9 Test 02/25/16 01:15 02/25/16 06:13 02/25/16 06:25 02/25/16 10:50 White Blood Count 10.79 K/uL 11.10 K/uL Red Blood Count 3.83 M/uL 3.96 M/uL Hemoglobin 9.0 g/dL 9.2 g/dL Hematocrit 26.1 % 26.3 % Mean Corpuscular Volume 68.1 fL 66.4 fL Mean Corpuscular Hemoglobin 23.5 pg 23.2 pg Mean Corpuscular Hemoglobin Concent 34.5 g/dl 35.0 g/dl Platelet Count 299 K/uL 319 K/uL Neutrophils (%) (Auto) 80.7 % Lymphocytes (%) (Auto) 9.0 % Monocytes (%) (Auto) 8.2 % Eosinophils (%) (Auto) 1.6 % Basophils (%) (Auto) 0.1 % Neutrophils # (Auto) 8.71 K/uL Lymphocytes # (Auto) 0.97 K/uL Monocytes # (Auto) 0.89 K/uL Eosinophils # (Auto) 0.17 K/uL Basophils # (Auto) 0.01 K/uL RDW Standard Deviation 43.4 fL 43.8 fL RDW Coefficient of Variation 17.9 % 18.4 % Immature Granulocyte % (Auto) 0.4 % Immature Granulocyte # (Auto) 0.04 K/uL Blood Smear Review Microcytosis PRESENT Target Cells 2+ Activated Partial Thromboplast Time 29.1 SECONDS 60.8 SECONDS Partial Thromboplastin Ratio 1.1 2.3 Sodium Level 134 mmol/L Potassium Level 3.5 mmol/L Chloride Level 98 mmol/L Carbon Dioxide Level 27 mmol/L Anion Gap 9.0 mmol/L Blood Urea Nitrogen 13 mg/dl Creatinine 1.00 mg/dl Est Creatinine Clear Calc Drug Dose 63.6 ml/min Estimated GFR () 86.2 Estimated GFR (Non- 74.3 BUN/Creatinine Ratio 13.3 Random Glucose 103 mg/dl Calcium Level 8.9 mg/dl Iron Level 43 mcg/dl Total Iron Binding Capacity 177 mcg/dl Ferritin 906.4 ng/ml Total Bilirubin 11.0 mg/dl Aspartate Amino Transf (AST/SGOT) 84 U/L Alanine Aminotransferase (ALT/SGPT) 73 U/L Alkaline Phosphatase 647 U/L Total Protein 6.4 gm/dl Albumin 2.2 gm/dl Globulin 4.2 gm/dl Albumin/Globulin Ratio 0.5 Vitamin B12 Level 586 pg/mL Folate 15.19 ng/mL Bedside Glucose 97 mg/dl Impression Patient is a 75 year old male inmate currently admitted for hyperglycemia management. He was found to have elevated LFTs, w imaging study showing intra/ extra hepatic biliary ductal dilation, CBD 2.6cm, pancreatic duct dilation w about 5cm mass in pancreas head, peripancreatic lymph node enlargement, liver masses suspicious for metastatic process. Plan - Obtain CA 19-9 - Monitor LFTs - Start Cipro 400mg IV BID to prevent cholangitis given narrowed CBD and rising WBC - He is on Heparin gtt; will discuss w Dr. Mccain for possible ERCP for biliary duct stent placement, and perhaps EUS eval of pancreas head mass w bx if possible. ATTESTATION: I have performed a history and physical examination of this patient and reviewed the electronic record. Specifically, I have reviewed his CT scan with radiology and discussed the diagnosis of metastatic pancreatic carcinoma with the patient. I have discussed the case with NEGRA Cook. The above note reflects my findings, conclusions, and recommendations. Vinnie Mccain MD
[2016-02-25 11:27] LABS: PARTIAL THROMBOPLASTIN RATIO 1.4
[2016-02-25] MEDS: AMLODIPINE BESYLATE 5 MG TAB PO SCH (11:42)
[2016-02-25] MEDS ORDERED: HEPARIN IV BOLUS 4,500 UNIT in SYRINGE 0 ML IV ONE (12:00)
--- NOTE | 2016-02-25 16:15 | Pharmacy Progress Note ---
Glycemic Control: Progress Nt Date of Service Feb 25, 2016. Scope Glycemic Pharmacist consulted by NEGRA Berry on 02/23/16 for glycemic control and to write orders per [facility] inpatient glycemic control protocol. Objective Accuchecks BSG (last 24hrs): Test 02/24/16 16:24 02/24/16 20:06 02/25/16 06:13 02/25/16 06:25 Bedside Glucose 108 mg/dl (70-99) 187 mg/dl (70-99) 97 mg/dl (70-99) Random Glucose 103 mg/dl (70-99) Test 02/25/16 11:06 Bedside Glucose 100 mg/dl (70-99) Laboratory Data (last 24hrs) Test 02/24/16 18:40 02/25/16 01:15 02/25/16 06:13 White Blood Count 10.43 K/uL 10.79 K/uL 11.10 K/uL Red Blood Count 3.83 M/uL Hemoglobin 9.0 g/dL Hematocrit 26.1 % Mean Corpuscular Volume 68.1 fL Mean Corpuscular Hemoglobin 23.5 pg Mean Corpuscular Hemoglobin Concent 34.5 g/dl Platelet Count 299 K/uL Neutrophils (%) (Auto) 80.7 % Lymphocytes (%) (Auto) 9.0 % Monocytes (%) (Auto) 8.2 % Eosinophils (%) (Auto) 1.6 % Basophils (%) (Auto) 0.1 % Neutrophils # (Auto) 8.71 K/uL Lymphocytes # (Auto) 0.97 K/uL Monocytes # (Auto) 0.89 K/uL Eosinophils # (Auto) 0.17 K/uL Basophils # (Auto) 0.01 K/uL Anion Gap 9.0 mmol/L BUN/Creatinine Ratio 13.3 Blood Urea Nitrogen 13 mg/dl Creatinine 1.00 mg/dl Potassium Level 3.5 mmol/L Sodium Level 134 mmol/L HbA1c: Test 02/23/16 19:17 Hemoglobin A1c 9.6 % (4.5-5.6) H Recent Pertinent Medications Outpatient Anti-diabetic Regimen: * N/A * A1c = 9.6 % 02/23/16 The patient is currently receiving: * Basal insulin: Lantus 10 units bid * Correctional Insulin: Novolog ACHS Goal range 110-150 mg/dl Correction factor 35 mg/d/unit * Prandial insulin: Carb ratio 1 unit per 15 Gm CHO consumed Risk Factors for Insulin Resistance: * Steroids: no * Infection: possible cholangitis, on Cipro IV * Pressors: no * IVF: heparin drip mixed in D5W * Recent Surgery: no * Diet: type 2 diabetic * Mechanical Ventilation: no Assessment & Plan ASSESSMENT: * ADA & AACE recommend a goal blood sugar range 140-180 mg/dl for the majority of critically ill & non-critically ill patients. However, more stringent targets may be selected in individual cases. 02/24/16 * 75 yo previously undiagnosed diabetic. Admitted with SOB, BSG's over 700. Recent 20 lb wt loss, polydipsia, polyuria. Insulin drip started and BSG's now in goal range. Will transition to SQ basal/bolus insulin (weight-based). 02/25/16 * Patient transitioned to SQ insulin yesterday. BSG's ranged 97-187 over past 24 hr. Heparin drip and Cipro IV (mixed in D5W) were started. Still poor PO intake. FBS a bit low so will decrease Lantus. PLAN FOR INPATIENT GLYCEMIC CONTROL: * Decreasing basal insulin with LANTUS to 10 units qam, give 1/2 dose if BSG is less than 110 * Correctional Insulin with NOVOLOG per scale ACHS or Q6hrs while NPO * Goal Range: Low 110 mg/dL - High 150 mg/dL * Correction Factor: 35 mg/dL/unit * Nutritional / Prandial insulin per carb ratio of 1 unit per 15 grams CHO consumed * Please note that the plan above was derived based on current level of insulin resistance and hospital stress. These recommendations are appropriate for inpatient admission only. Plan of care upon discharge will need to be reassessed to avoid potential outpatient hypo/hyperglycemia. Thank you.
[2016-02-25] MEDS ORDERED: INDOMETHACIN 50 MG SUPP PR ONE (16:23)
[2016-02-25 18:10] LABS: PARTIAL THROMBOPLASTIN RATIO 2.7
--- NOTE | 2016-02-25 18:34 | Progress Note ---
Medicine Progress Note Date & Time of Visit: Feb 25, 2016 at 18:30. Subjective Patient seen and examined. Worried about the upcoming procedure on Tuesday. Objective Last 8 Hrs Date Time Temp Pulse Resp B/P Pulse Ox O2 Delivery O2 Flow Rate FiO2 02/25/16 16:00 99 Room Air 02/25/16 15:57 37.0 68 18 149/64 99 Room Air 02/25/16 12:25 Room Air 02/25/16 11:40 36.9 57 18 149/96 99 Room Air Physical Exam: General-awake; alert; NAD Eyes-EOMI; muddy sclera Neck-no stridor; trachea midline Lungs-CTA bilaterally; no wheezes/crackles Heart-RRR; no m/r/g Abdomen-soft; mild upper quadrant tenderness to palpation; ND; nBS Extremities-no c/c/e; no deformity Neuro-no gross focal deficits Laboratory Results: Last 24 Hours Test 02/24/16 18:40 02/24/16 20:06 02/25/16 01:15 02/25/16 06:13 White Blood Count 10.43 K/uL 10.79 K/uL 11.10 K/uL Red Blood Count 4.17 M/uL 3.83 M/uL 3.96 M/uL Hemoglobin 9.8 g/dL 9.0 g/dL 9.2 g/dL Hematocrit 28.7 % 26.1 % 26.3 % Mean Corpuscular Volume 68.8 fL 68.1 fL 66.4 fL Mean Corpuscular Hemoglobin 23.5 pg 23.5 pg 23.2 pg Mean Corpuscular Hemoglobin Concent 34.1 g/dl 34.5 g/dl 35.0 g/dl RDW Standard Deviation 43.1 fL 43.4 fL 43.8 fL RDW Coefficient of Variation 17.6 % 17.9 % 18.4 % Platelet Count 325 K/uL 299 K/uL 319 K/uL Prothrombin Time 11.3 SECONDS Prothromb Time International Ratio 1.1 Activated Partial Thromboplast Time 24.1 SECONDS 29.1 SECONDS 60.8 SECONDS Partial Thromboplastin Ratio 0.9 1.1 2.3 Bedside Glucose 187 mg/dl Neutrophils (%) (Auto) 80.7 % Lymphocytes (%) (Auto) 9.0 % Monocytes (%) (Auto) 8.2 % Eosinophils (%) (Auto) 1.6 % Basophils (%) (Auto) 0.1 % Neutrophils # (Auto) 8.71 K/uL Lymphocytes # (Auto) 0.97 K/uL Monocytes # (Auto) 0.89 K/uL Eosinophils # (Auto) 0.17 K/uL Basophils # (Auto) 0.01 K/uL Immature Granulocyte % (Auto) 0.4 % Immature Granulocyte # (Auto) 0.04 K/uL Blood Smear Review Microcytosis PRESENT Target Cells 2+ Sodium Level 134 mmol/L Potassium Level 3.5 mmol/L Chloride Level 98 mmol/L Carbon Dioxide Level 27 mmol/L Anion Gap 9.0 mmol/L Blood Urea Nitrogen 13 mg/dl Creatinine 1.00 mg/dl Est Creatinine Clear Calc Drug Dose 63.6 ml/min Estimated GFR () 86.2 Estimated GFR (Non- 74.3 BUN/Creatinine Ratio 13.3 Random Glucose 103 mg/dl Calcium Level 8.9 mg/dl Iron Level 43 mcg/dl Total Iron Binding Capacity 177 mcg/dl Ferritin 906.4 ng/ml Total Bilirubin 11.0 mg/dl Aspartate Amino Transf (AST/SGOT) 84 U/L Alanine Aminotransferase (ALT/SGPT) 73 U/L Alkaline Phosphatase 647 U/L Total Protein 6.4 gm/dl Albumin 2.2 gm/dl Globulin 4.2 gm/dl Albumin/Globulin Ratio 0.5 Vitamin B12 Level 586 pg/mL Folate 15.19 ng/mL Test 02/25/16 06:25 02/25/16 10:50 02/25/16 11:06 02/25/16 16:22 Bedside Glucose 97 mg/dl 100 mg/dl 210 mg/dl Activated Partial Thromboplast Time 36.2 SECONDS Partial Thromboplastin Ratio 1.4 Test 02/25/16 17:40 Activated Partial Thromboplast Time 70.9 SECONDS Partial Thromboplastin Ratio 2.7 Assessment & Plan POSSIBLE METASTATIC PANCREATIC CANCER - patient with unintentional weight loss over the past month - liver ultrasound with intra and extrahepatic biliary ductal dilatation and soft tissue mass in pancreatic head - CT a/p highly suggestive of metastatic pancreatic adenocarcinoma - GI consulted - plan for ERCP on Tuesday - prophylactic ciprofloxacin started to prevent cholangitis BILATERAL PE - likely related to underlying malignancy - continue low dose heparin drip SEVERE HYPERGLYCEMIA - improved - on admission - started on insulin drip and was transitioned to insulin sq - hgb a1c of 9.6 - glycemic pharmacy consulted JEANA - resolved - likely due to severe hyperglycemia - resolved with IVF - hold HCTZ ANEMIA - hgb stable in - colonoscopy 01/2016 negative per note sent from [facility] - folate, b12 normal - iron studies c/w anemia of chronic disease - may be related to underlying malignancy HTN - BP elevated on arrival, however improved - holding HCTZ and atenolol - PRN hydralazine - start amlodipine BRADYCARDIA - improved - likely related to atenolol - EKG shows sinus bradycardia - holding beta sade - monitor in tele DVT PROPHYLAXIS - heparin drip CODE STATUS - full code Consultants: Gastroenterology Procedures: Liver ultrasound 1. Intra and extrahepatic biliary ductal dilatation. Equivocal soft tissue mass in the region of the pancreatic head. CT scanning should be considered in follow -up. CT Chest 1. Multiple scattered bilateral segmental and subsegmental pulmonary emboli. 2. Trace right pleural effusion. 3. Emphysema. 4. Pancreatic mass with associated biliary and pancreatic duct dilatation. There are also a few hepatic metastatic lesions. Please refer to the same day abdomen CT for further evaluation. 5. Possible 12 mm soft tissue nodule abutting the anterior pericardium. Follow- up is recommended to exclude the possibility of a metastatic lesion. CT a/p 1. Findings highly suggestive of metastatic pancreatic adenocarcinoma. Uncinate process/pancreatic head mass measuring approximately 5.5 cm with associated biliary and pancreatic ductal dilatation, numerous hepatic metastases and several pathologic peripancreatic lymph nodes. GI consultation for consideration for endoscopic sampling is recommended. 2. Pancreatic parenchymal calcifications suggestive of chronic pancreatitis. Current Inpatient Medications: Current Inpatient Medications Medications (Trade) Dose Ordered Sig/Renuka Route Start Time Stop Time Status Last Admin Dose Admin Acetaminophen (Tylenol Tab) 650 mg Q4H PRN PO 02/23/16 21:30 03/24/16 21:29 Ondansetron HCl (Zofran Inj) 4 mg Q6H PRN IV 02/23/16 21:30 03/24/16 21:29 Aspirin (Ecotrin Tab) 81 mg QAM PO 02/24/16 09:00 03/25/16 08:59 02/25/16 08:06 81 MG Tamsulosin HCl (Flomax Cap) 0.4 mg DAILY PO 02/24/16 09:00 03/25/16 08:59 02/25/16 08:07 0.4 MG Pantoprazole Sodium (Protonix Tab) 40 mg QAM PO 02/24/16 09:00 03/25/16 08:59 02/25/16 08:07 40 MG Hydralazine HCl (HydrALAZINE INJ) 10 mg Q6H PRN IV. 02/23/16 22:45 03/24/16 22:44 02/25/16 08:40 10 MG Glucose (Glucose 40% Gel) 15-30 GRAMS 15 GRAMS... UD PRN PO 02/23/16 23:00 03/24/16 22:59 Glucose (Glucose Chew Tab) 4-8 Tablets 4 Tabl... UD PRN PO 02/23/16 23:00 03/24/16 22:59 Dextrose (Dextrose 50% 50ML Syringe) 25-50ML OF 50% DW IV FOR... UD PRN IV 02/23/16 23:00 03/24/16 22:59 Glucagon (Glucagon Inj) 1 mg UD PRN SQ 02/23/16 23:00 03/24/16 22:59 Miscellaneous Information (Consult Glycemic Management Pharmacy) 1 ea UD PRN N/A 02/24/16 02:45 03/25/16 02:44 Insulin Aspart (novoLOG ASPART) SLIDING SCALE ACHS SC 02/24/16 11:00 03/25/16 10:59 02/25/16 16:53 6 UNITS Ioversol 125 ml 125 ml UD PRN IV 02/24/16 10:00 02/28/16 09:59 Heparin Sodium/ Dextrose (Heparin 25,000 Unit/500ml D5W) 500 ml @ 21 mls/hr [id number] PRN IV 02/24/16 19:00 03/25/16 18:59 02/25/16 15:11 21 MLS/HR Insulin Glargine (Lantus Solostar Pen) 10 unit DAILY SC 02/26/16 09:00 03/27/16 08:59 Amlodipine Besylate 10 mg 10 mg QAM PO 02/25/16 10:30 03/26/16 10:29 02/25/16 11:42 10 MG Ciprofloxacin/ Dextrose/Prmx (Cipro / D5w/ Premixed D5W) 200 ml @ 100 mls/hr Q12 IV 02/25/16 21:00 03/06/16 20:59
[2016-02-25] MEDS: CIPROFLOXACIN / D5W 400 MG in PREMIXED IN D5W 200 ML IV SCH (21:25)
[2016-02-26 00:57] LABS: PARTIAL THROMBOPLASTIN RATIO 1.8
[2016-02-26] MEDS ORDERED: HEPARIN IV BOLUS 3,000 UNIT in SYRINGE 0 ML IV STA (01:48)
[2016-02-26 03:43] VITALS: BP 150/81; PULSE 73; TEMP 36.8; O2SAT 99
[2016-02-26 07:22] LABS: HEMATOCRIT 24.4 % (42-52); MEAN CELL VOLUME 65.8 fL (80-100); MEAN CORPUSCULAR HEMOGLOBIN 23.7 pg (25-34); MEAN CORPUSCULAR HGB CONC 36.1 g/dl (32-36); PLATELET COUNT 332 K/uL (130-400); RED BLOOD COUNT 3.71 M/uL (4.7-6.1); WHITE BLOOD COUNT 13.54 K/uL (4.8-10.8)
[2016-02-26 07:37] LABS: PARTIAL THROMBOPLASTIN RATIO 2.3
[2016-02-26 07:56] LABS: ALB/GLOB RATIO 0.5 (0.9-2); BUN/CREATININE RATIO 16.8 (10-20); CALCIUM 8.9 mg/dl (8.5-10.1); CREATININE 0.98 mg/dl (0.60-1.40); POTASSIUM 3.9 mmol/L (3.5-5.1)
[2016-02-26 08:09] VITALS: BP 149/65; PULSE 86; TEMP 36.9; O2SAT 98
[2016-02-26] MEDS: CIPROFLOXACIN / D5W 400 MG in PREMIXED IN D5W 200 ML IV SCH ×2 (08:31→20:12)
[2016-02-26] MEDS: TAMSULOSIN HCL 0.4 MG CAP PO SCH (08:32)
[2016-02-26] MEDS: ASPIRIN 81 MG ECTAB PO SCH (08:32)
[2016-02-26] MEDS: AMLODIPINE BESYLATE 5 MG TAB PO SCH (08:32)
[2016-02-26] MEDS: PANTOprazole SOD 40 MG TAB PO SCH (08:32)
[2016-02-26] MEDS: INSULIN ASPART 100 UNITS/ML 3 ML PEN SC SCH ×4 (08:43→20:12)
[2016-02-26] MEDS ORDERED: POLYETHYLENE (MIRALAX) 17 GM PACK PO PRN (08:45)
--- NOTE | 2016-02-26 08:47 | Gastroenterology Progress Note ---
Progress Note Date of Service: Feb 26, 2016 Subjective Pt evaluation today including: conversation w/ patient, physical exam, chart review Patient was seen and examined this morning. He is scheduled to have a ERCP tomorrow AM with Dr. Mccain. This procedure was discussed with him yesterday and he has decided to proceed with the procedure - he has no questions at this time. He is denying any fever, chills, chest pain, SOB, abdominal pain, N/V/D, spontaneous bleeding or edema. He mentions that he has not had a bowel movement since he has been at the hospital but notes that he also has not ate much. He does not take anything regularly for his BM. Review of Systems Constitutional: No chills, No fever Respiratory: No cough, No shortness of breath Cardiac: No chest pain, No edema Abdomen: + constipation, No GI bleeding, No diarrhea, No nausea, No pain, No vomiting Medications Current Inpatient Medications Medications (Trade) Dose Ordered Sig/Renuka Route Start Time Stop Time Status Last Admin Dose Admin Acetaminophen (Tylenol Tab) 650 mg Q4H PRN PO 02/23/16 21:30 03/24/16 21:29 Ondansetron HCl (Zofran Inj) 4 mg Q6H PRN IV 02/23/16 21:30 03/24/16 21:29 Aspirin (Ecotrin Tab) 81 mg QAM PO 02/24/16 09:00 03/25/16 08:59 02/25/16 08:06 81 MG Tamsulosin HCl (Flomax Cap) 0.4 mg DAILY PO 02/24/16 09:00 03/25/16 08:59 02/25/16 08:07 0.4 MG Pantoprazole Sodium (Protonix Tab) 40 mg QAM PO 02/24/16 09:00 03/25/16 08:59 02/25/16 08:07 40 MG Hydralazine HCl (HydrALAZINE INJ) 10 mg Q6H PRN IV. 02/23/16 22:45 03/24/16 22:44 02/25/16 08:40 10 MG Glucose (Glucose 40% Gel) 15-30 GRAMS 15 GRAMS... UD PRN PO 02/23/16 23:00 03/24/16 22:59 Glucose (Glucose Chew Tab) 4-8 Tablets 4 Tabl... UD PRN PO 02/23/16 23:00 03/24/16 22:59 Dextrose (Dextrose 50% 50ML Syringe) 25-50ML OF 50% DW IV FOR... UD PRN IV 02/23/16 23:00 03/24/16 22:59 Glucagon (Glucagon Inj) 1 mg UD PRN SQ 02/23/16 23:00 03/24/16 22:59 Miscellaneous Information (Consult Glycemic Management Pharmacy) 1 ea UD PRN N/A 02/24/16 02:45 03/25/16 02:44 Insulin Aspart (novoLOG ASPART) SLIDING SCALE ACHS SC 02/24/16 11:00 03/25/16 10:59 02/25/16 21:32 1 UNITS Ioversol 125 ml 125 ml UD PRN IV 02/24/16 10:00 02/28/16 09:59 Heparin Sodium/ Dextrose (Heparin 25,000 Unit/500ml D5W) 500 ml @ 21 mls/hr [id number] PRN IV 02/24/16 19:00 03/25/16 18:59 02/25/16 22:40 20 MLS/HR Insulin Glargine (Lantus Solostar Pen) 10 unit DAILY SC 02/26/16 09:00 03/27/16 08:59 Amlodipine Besylate 10 mg 10 mg QAM PO 02/25/16 10:30 03/26/16 10:29 02/25/16 11:42 10 MG Ciprofloxacin/ Dextrose/Prmx (Cipro / D5w/ Premixed D5W) 200 ml @ 100 mls/hr Q12 IV 02/25/16 21:00 03/06/16 20:59 02/25/16 21:25 100 MLS/HR Objective Vital Signs Date Time Temp Pulse Resp B/P Pulse Ox O2 Delivery O2 Flow Rate FiO2 02/26/16 08:09 36.9 86 18 149/65 98 02/26/16 04:00 Room Air 02/26/16 03:43 36.8 73 20 150/81 99 Room Air 02/25/16 23:59 Room Air 02/25/16 23:35 36.8 66 21 133/82 99 Room Air 02/25/16 20:00 99 Room Air 02/25/16 19:37 36.9 69 18 123/60 99 Room Air 02/25/16 16:00 99 Room Air 02/25/16 15:57 37.0 68 18 149/64 99 Room Air 02/25/16 12:25 Room Air 02/25/16 11:40 36.9 57 18 149/96 99 Room Air 02/25/16 09:57 65 107/69 Physical Exam General Appearance: no apparent distress Eyes: PERRL ENT: hearing grossly normal Neck: supple, trachea midline Respiratory/Chest: lungs clear, normal breath sounds, no respiratory distress, no accessory muscle use Cardiovascular: regular rate, rhythm, no edema, no gallop, no JVD, no murmur Abdomen: normal bowel sounds, non tender, soft, no organomegaly, no pulsatile mass Neurologic/Psych: alert, normal mood/affect, oriented x 3 Skin: normal color, warm/dry, no rash Laboratory Results Last 24 Hours Test 02/25/16 10:50 02/25/16 11:06 02/25/16 16:22 02/25/16 17:40 Activated Partial Thromboplast Time 36.2 SECONDS 70.9 SECONDS Partial Thromboplastin Ratio 1.4 2.7 Bedside Glucose 100 mg/dl 210 mg/dl Test 02/25/16 20:02 02/26/16 00:26 02/26/16 06:34 02/26/16 07:09 Bedside Glucose 181 mg/dl 175 mg/dl Activated Partial Thromboplast Time 45.8 SECONDS 60.4 SECONDS Partial Thromboplastin Ratio 1.8 2.3 White Blood Count 13.54 K/uL Red Blood Count 3.71 M/uL Hemoglobin 8.8 g/dL Hematocrit 24.4 % Mean Corpuscular Volume 65.8 fL Mean Corpuscular Hemoglobin 23.7 pg Mean Corpuscular Hemoglobin Concent 36.1 g/dl RDW Standard Deviation 44.8 fL RDW Coefficient of Variation 18.9 % Platelet Count 332 K/uL Sodium Level 131 mmol/L Potassium Level 3.9 mmol/L Chloride Level 96 mmol/L Carbon Dioxide Level 25 mmol/L Anion Gap 10.0 mmol/L Blood Urea Nitrogen 16 mg/dl Creatinine 0.98 mg/dl Est Creatinine Clear Calc Drug Dose 64.7 ml/min Estimated GFR () 88.3 Estimated GFR (Non- 76.2 BUN/Creatinine Ratio 16.8 Random Glucose 173 mg/dl Calcium Level 8.9 mg/dl Total Bilirubin 13.4 mg/dl Direct Bilirubin 11.4 mg/dl Aspartate Amino Transf (AST/SGOT) 72 U/L Alanine Aminotransferase (ALT/SGPT) 64 U/L Alkaline Phosphatase 606 U/L Total Protein 6.0 gm/dl Albumin 2.1 gm/dl Globulin 3.9 gm/dl Albumin/Globulin Ratio 0.5 Assessment and Plan Patient is a 75 year old male currently on heparin drip for numerous PE who was admitted for hyperglycemia, elevated LFTs, intra/extra hepatic biliary ductal dilation, CBD 2.6cm, pancreatic duct dilation w about 5cm mass in pancreas head , peripancreatic lymph node enlargement and liver mass suspicious for metastatic process. Plan stop heparin drip at midnight ERCP tomorrow NPO after midnight follow CA 19-9 when finalized Monitor LFTs Continue Cipro 400mg IV BID (preventative for cholangitis) Possible EUS for eval of pancreas mass Please call with any questions. ATTESTATION: I have performed a history and physical examination of this patient and reviewed the electronic record. Specifically, on physical examination there is no significant abdominal tenderness. I have discussed the case with NEGRA Cook. The above note reflects my findings, conclusions, and recommendations. Vinnie Mccain MD
[2016-02-26] MEDS ORDERED: INSULIN GLARGINE SOLOSTAR 100 UNITS/ML 3 ML PEN SC SCH (09:00)
[2016-02-26 11:33] VITALS: BP 151/63; PULSE 86; TEMP 36.7; O2SAT 95
--- NOTE | 2016-02-26 11:37 | Anesthesiology Progress Note ---
Anesthesia Progress Note Date of Service Feb 26, 2016. Progress Notes The patient is a 75 y/o male scheduled for ERCP tomorrow. He was admitted on 02/23/16 with SOB, weakness, and sudden 20 pound weight loss. In the ER his BSG was found to be 722 and Cr 1.6. He had been diagnosed with anemia one month ago. An abdominal CT found a pancreatic mass with liver mets. A chest CT found multiple pulmonary emboli and emphysema. The patient was placed on both insulin and heparin. Other PMH includes 60 year history of smoking, arthritis, and BPH. He has no problems with anesthesia. He states that he feels weak and easily get SOB but has no chest pain. His EKG shows SB with PACs and LVH. Labs are significant for WBC 13.5, hgb 8.8, Na 131, bilirubin 13.4, and ptt 60. His troponin was negative. On exam the patient appears emaciated. He has a coyle. He has >3 FB on TMD, good neck extension, and is a MP 2. He has upper and lower dentures. Heart was RRR. Lungs had decreased breath sounds bilaterally. He did not have a carotid bruit. The patient was consented for GA with ETT. He was counseled to remain NPO after midnight except for sips of water with pills.
[2016-02-26] MEDS ORDERED: NURSING VERBAL MED ORDER ONE (13:30)
[2016-02-26 15:56] VITALS: BP 122/77; PULSE 76; TEMP 37; O2SAT 99
--- NOTE | 2016-02-26 16:03 | Progress Note ---
Medicine Progress Note Date & Time of Visit: Feb 26, 2016 at 16:00. Subjective Patient seen and examined. Anticipating the procedure tomorrow. Is without complaints. Objective Last 8 Hrs Date Time Temp Pulse Resp B/P Pulse Ox O2 Delivery O2 Flow Rate FiO2 02/26/16 15:56 37.0 76 18 122/77 99 Room Air 02/26/16 12:00 Room Air 02/26/16 11:33 36.7 86 18 151/63 95 02/26/16 08:09 36.9 86 18 149/65 98 Physical Exam: General-awake; alert; NAD Eyes-EOMI; muddy sclera Neck-no stridor; trachea midline Lungs-CTA bilaterally; no wheezes/crackles Heart-RRR; no m/r/g Abdomen-soft; NTND; nBS Extremities-no c/c/e; no deformity Neuro-no gross focal deficits Laboratory Results: Last 24 Hours Test 02/25/16 16:22 02/25/16 17:40 02/25/16 20:02 02/26/16 00:26 Bedside Glucose 210 mg/dl 181 mg/dl Activated Partial Thromboplast Time 70.9 SECONDS 45.8 SECONDS Partial Thromboplastin Ratio 2.7 1.8 Test 02/26/16 06:34 02/26/16 07:09 02/26/16 11:26 Bedside Glucose 175 mg/dl 289 mg/dl White Blood Count 13.54 K/uL Red Blood Count 3.71 M/uL Hemoglobin 8.8 g/dL Hematocrit 24.4 % Mean Corpuscular Volume 65.8 fL Mean Corpuscular Hemoglobin 23.7 pg Mean Corpuscular Hemoglobin Concent 36.1 g/dl RDW Standard Deviation 44.8 fL RDW Coefficient of Variation 18.9 % Platelet Count 332 K/uL Activated Partial Thromboplast Time 60.4 SECONDS Partial Thromboplastin Ratio 2.3 Sodium Level 131 mmol/L Potassium Level 3.9 mmol/L Chloride Level 96 mmol/L Carbon Dioxide Level 25 mmol/L Anion Gap 10.0 mmol/L Blood Urea Nitrogen 16 mg/dl Creatinine 0.98 mg/dl Est Creatinine Clear Calc Drug Dose 64.7 ml/min Estimated GFR () 88.3 Estimated GFR (Non- 76.2 BUN/Creatinine Ratio 16.8 Random Glucose 173 mg/dl Calcium Level 8.9 mg/dl Total Bilirubin 13.4 mg/dl Direct Bilirubin 11.4 mg/dl Aspartate Amino Transf (AST/SGOT) 72 U/L Alanine Aminotransferase (ALT/SGPT) 64 U/L Alkaline Phosphatase 606 U/L Total Protein 6.0 gm/dl Albumin 2.1 gm/dl Globulin 3.9 gm/dl Albumin/Globulin Ratio 0.5 Assessment & Plan POSSIBLE METASTATIC PANCREATIC CANCER - patient with unintentional weight loss over the past month - liver ultrasound with intra and extrahepatic biliary ductal dilatation and soft tissue mass in pancreatic head - CT a/p highly suggestive of metastatic pancreatic adenocarcinoma - GI consulted - plan for ERCP +/- EUS on Tuesday - prophylactic ciprofloxacin started to prevent cholangitis BILATERAL PE - likely related to underlying malignancy - continue low dose heparin drip SEVERE HYPERGLYCEMIA - improved - on admission - started on insulin drip and was transitioned to insulin sq - hgb a1c of 9.6 - glycemic pharmacy consulted [facility] - resolved - likely due to severe hyperglycemia - resolved with IVF - hold HCTZ ANEMIA - hgb stable in - colonoscopy 01/2016 negative per note sent from [facility] - folate, b12 normal - iron studies c/w anemia of chronic disease - may be related to underlying malignancy HTN - BP elevated on arrival, however improved - holding HCTZ and atenolol - PRN hydralazine - started amlodipine BRADYCARDIA - resolved - likely related to atenolol - EKG showed sinus bradycardia - holding beta sade - monitor in tele DVT PROPHYLAXIS - heparin drip CODE STATUS - full code Consultants: Gastroenterology Procedures: Liver ultrasound 1. Intra and extrahepatic biliary ductal dilatation. Equivocal soft tissue mass in the region of the pancreatic head. CT scanning should be considered in follow -up. CT Chest 1. Multiple scattered bilateral segmental and subsegmental pulmonary emboli. 2. Trace right pleural effusion. 3. Emphysema. 4. Pancreatic mass with associated biliary and pancreatic duct dilatation. There are also a few hepatic metastatic lesions. Please refer to the same day abdomen CT for further evaluation. 5. Possible 12 mm soft tissue nodule abutting the anterior pericardium. Follow- up is recommended to exclude the possibility of a metastatic lesion. CT a/p 1. Findings highly suggestive of metastatic pancreatic adenocarcinoma. Uncinate process/pancreatic head mass measuring approximately 5.5 cm with associated biliary and pancreatic ductal dilatation, numerous hepatic metastases and several pathologic peripancreatic lymph nodes. GI consultation for consideration for endoscopic sampling is recommended. 2. Pancreatic parenchymal calcifications suggestive of chronic pancreatitis. Current Inpatient Medications: Current Inpatient Medications Medications (Trade) Dose Ordered Sig/Renuka Route Start Time Stop Time Status Last Admin Dose Admin Acetaminophen (Tylenol Tab) 650 mg Q4H PRN PO 02/23/16 21:30 03/24/16 21:29 Ondansetron HCl (Zofran Inj) 4 mg Q6H PRN IV 02/23/16 21:30 03/24/16 21:29 Aspirin (Ecotrin Tab) 81 mg QAM PO 02/24/16 09:00 03/25/16 08:59 02/26/16 08:32 81 MG Tamsulosin HCl (Flomax Cap) 0.4 mg DAILY PO 02/24/16 09:00 03/25/16 08:59 02/26/16 08:32 0.4 MG Pantoprazole Sodium (Protonix Tab) 40 mg QAM PO 02/24/16 09:00 03/25/16 08:59 02/26/16 08:32 40 MG Hydralazine HCl (HydrALAZINE INJ) 10 mg Q6H PRN IV. 02/23/16 22:45 03/24/16 22:44 02/25/16 08:40 10 MG Glucose (Glucose 40% Gel) 15-30 GRAMS 15 GRAMS... UD PRN PO 02/23/16 23:00 03/24/16 22:59 Glucose (Glucose Chew Tab) 4-8 Tablets 4 Tabl... UD PRN PO 02/23/16 23:00 03/24/16 22:59 Dextrose (Dextrose 50% 50ML Syringe) 25-50ML OF 50% DW IV FOR... UD PRN IV 02/23/16 23:00 03/24/16 22:59 Glucagon (Glucagon Inj) 1 mg UD PRN SQ 02/23/16 23:00 03/24/16 22:59 Miscellaneous Information (Consult Glycemic Management Pharmacy) 1 ea UD PRN N/A 02/24/16 02:45 03/25/16 02:44 Insulin Aspart (novoLOG ASPART) SLIDING SCALE ACHS SC 02/24/16 11:00 03/25/16 10:59 02/26/16 13:15 10 UNITS Ioversol 125 ml 125 ml UD PRN IV 02/24/16 10:00 02/28/16 09:59 Heparin Sodium/ Dextrose (Heparin 25,000 Unit/500ml D5W) 500 ml @ 21 mls/hr [id number] PRN IV 02/24/16 19:00 02/26/16 23:59 02/25/16 22:40 20 MLS/HR Amlodipine Besylate 10 mg 10 mg QAM PO 02/25/16 10:30 03/26/16 10:29 02/26/16 08:32 10 MG Ciprofloxacin/ Dextrose/Prmx (Cipro / D5w/ Premixed D5W) 200 ml @ 100 mls/hr Q12 IV 02/25/16 21:00 03/06/16 20:59 02/26/16 08:31 100 MLS/HR Polyethylene (Miralax Powder Packet) 17 gm DAILY PRN PO 02/26/16 08:45 03/27/16 08:44 Miscellaneous (Stop Order) 1 ea TODAY@0000 ONCE N/A 02/27/16 00:00 02/27/16 00:01 Indomethacin (Indocin Suppository) 100 mg TODAY@0800 DC 02/27/16 08:00 02/27/16 15:00 Insulin Glargine (Lantus Solostar Pen) DAILY SC 02/27/16 09:00 03/27/16 08:59
[2016-02-26 19:47] VITALS: BP 127/78; PULSE 75; TEMP 36.8; O2SAT 98
[2016-02-27] VITALS (9 sets, daily range): BP systolic 131–170; BP diastolic 63–87; PULSE 49–77; TEMP 36.4–37.7; O2SAT 97–100
[2016-02-27] MEDS ORDERED: [UNRECOGNIZED DRUG - REMARK] ONE
[2016-02-27] MEDS: INSULIN ASPART 100 UNITS/ML 3 ML PEN SC SCH ×4 (07:00→21:13)
[2016-02-27 07:15] LABS: HEMATOCRIT 25.2 % (42-52); MEAN CELL VOLUME 68.7 fL (80-100); MEAN CORPUSCULAR HEMOGLOBIN 23.2 pg (25-34); MEAN CORPUSCULAR HGB CONC 33.7 g/dl (32-36); PLATELET COUNT 305 K/uL (130-400); RED BLOOD COUNT 3.67 M/uL (4.7-6.1); WHITE BLOOD COUNT 14.36 K/uL (4.8-10.8)
[2016-02-27] MEDS ORDERED: ROCURONIUM BROMIDE 10 MG/ML 5 ML VIAL ONE (07:23)
[2016-02-27] MEDS ORDERED: PROPOFOL IV EMULSION 10 MG/ML 20 ML VIAL IV ONE (07:23)
[2016-02-27] MEDS ORDERED: LIDOCAINE HCL 2% 2 ML VIAL (20MG/ML) ONE (07:23)
[2016-02-27] MEDS ORDERED: FENTANYL CITRATE INJ 50 MCG/1 ML 2 ML VIAL ONE (07:24)
--- NOTE | 2016-02-27 07:53 | History & Physical Bridge Note ---
H&P Re-Evaluation Bridge Note: I have examined the patient, reviewed the History & Physical and in the interval since the performance of the History & Physical I have noted the following changes of clinical significance: No changes noted
[2016-02-27] MEDS ORDERED: INDOMETHACIN 50 MG SUPP PR SCH (08:00)
[2016-02-27 08:04] LABS: ALB/GLOB RATIO 0.5 (0.9-2); BUN/CREATININE RATIO 15.3 (10-20); CALCIUM 8.8 mg/dl (8.5-10.1); CREATININE 1.2 mg/dl (0.60-1.40); POTASSIUM 4.2 mmol/L (3.5-5.1)
[2016-02-27] MEDS ORDERED: INSULIN GLARGINE SOLOSTAR 100 UNITS/ML 3 ML PEN SC SCH ×2 (09:00→21:00)
[2016-02-27] MEDS: ASPIRIN 81 MG ECTAB PO SCH (09:00)
[2016-02-27] MEDS: CIPROFLOXACIN / D5W 400 MG in PREMIXED IN D5W 200 ML IV SCH (09:00)
[2016-02-27] MEDS: TAMSULOSIN HCL 0.4 MG CAP PO SCH (09:00)
[2016-02-27] MEDS ORDERED: INDOMETHACIN 50 MG SUPP PR ONE (09:03)
--- NOTE | 2016-02-27 09:26 | DIAGNOSTIC IMAGING REPORT ---
ERCP BILIARY DUCTAL CLINICAL HISTORY: Elevated bilirubin. Possible pancreatic mass. COMPARISON STUDY: CT scan dated 02/24/2016 FLUOROSCOPY TIME: 5 minutes and 24 seconds. 12 fluoroscopic spot images were acquired. FINDINGS: The ERCP was performed by Dr. Mccain. There is a severe narrowing of the distal common bile duct with marked narrowing of the more proximal common bile duct. A metallic expandable stent was placed traversing the stricture. IMPRESSION: Severe narrowing distal common bile duct. The stricture was stented. Electronically signed by: Derrick Way M.D. 02/27/2016 9:24 AM Dictated Date/Time: 02/27/2016 9:23 AM
[2016-02-27] MEDS ORDERED: LABETALOL HCL IV 5 MG/ML 20ML ONE (09:38)
[2016-02-27] MEDS ORDERED: NEOSTIGMINE METHYLSULFATE 5 MG/5 ML SYR ONE (09:39)
[2016-02-27] MEDS ORDERED: GLYCOPYRROLATE INJ 0.2 MG/ML VIAL ONE (09:40)
[2016-02-27] MEDS ORDERED: EpHEDrine SULFATE INJ 50 MG/ML AMP IV PRN (09:45)
[2016-02-27] MEDS ORDERED: ONDANSETRON INJ 2 MG/ML 2 ML VIAL IV PRN (09:45)
[2016-02-27] MEDS ORDERED: HYDROmorphone INJ 1 MG/ML SYR IV PRN (09:45)
[2016-02-27] MEDS ORDERED: ATROPINE SULFATE 0.1 MG/ML 5ML SYR IV PRN (09:45)
[2016-02-27] MEDS ORDERED: LABETALOL HCL IV 5 MG/ML 20ML IV PRN (09:45)
[2016-02-27] MEDS ORDERED: FENTANYL CITRATE INJ 50 MCG/1 ML 2 ML VIAL IV PRN (09:45)
[2016-02-27] MEDS ORDERED: MEPERIDINE HCL 25 MG/ML CARP IV PRN (09:45)
--- NOTE | 2016-02-27 10:03 | GI REPORT ---
Procedure Date: 02/27/2016 7:59 AM Procedure: ERCP Indications: Biliary dilation on Computed Tomogram Scan, Malignant tumor of the head of pancreas Medicines: General Anesthesia, Indomethicin 100 mg rectal Complications: No immediate complications. Estimated blood loss: None Estimated Blood Loss: Estimated blood loss: none. Procedure: Pre-Anesthesia Assessment: - Prior to the procedure, a History and Physical was performed, and patient medications, allergies and sensitivities were reviewed. The patient's tolerance of previous anesthesia was reviewed. - ASA Grade Assessment: III - A patient with severe systemic disease. After obtaining informed consent, the scope was passed under direct vision. Throughout the procedure, the patient's blood pressure, pulse, and oxygen saturations were monitored continuously. The SCOPE was introduced through the mouth, and advanced to the duodenum and used to cannulate the bile duct. The ERCP was accomplished without difficulty. The patient tolerated the procedure well. Findings: The pharmacy informatics manager film was normal. The esophagus was successfully intubated under direct vision without detailed examination of the pharynx, larynx, and associated structures. The scope was passed under direct vision through the upper GI tract. A moderate extrinsic deformity was found in the third part of the duodenum. Intubation of the second portion of the duodenum was performed with some difficulty. The major papilla was normal. Several attempts at wire guided cannulation appeared to enter the pancreatic mass. After several attempts, a [email or web address] Acrobat 0.035 inch guidewire was passed into the biliary tree via a [email or web address] Omni FS 35 sphincterotome. The sphincterotome was passed over the guidewire and the bile duct was then deeply cannulated. Contrast was injected. The middle third of the main bile duct, upper third of the main bile duct and right and left intrahepatic branches (but not the right or left hepatic ducts) were diffusely dilated. The largest diameter was 20 mm. The lower third of the main bile duct contained a single severe localized stenosis 45 mm in length. A 6 mm biliary sphincterotomy was made with a monofilament traction (standard) sphincterotome using ERBE electrocautery. There was no post-sphincterotomy bleeding. The stricture and the pancreatic mass was biopsied with a cold forceps for histology. Cells for cytology were obtained by brushing. One Microvasive Wallflex Bilary Rx FULLY COVERED 10 mm by 6 cm metal stent ([id number] [id number] REF [id number]) was placed 5.5 cm into the common bile duct. Bile flowed through the stent. The stent was in good position. The total fluoroscopy exposure time was 5 minutes and 24 seconds. Impression: - Duodenal deformity. - The major papilla appeared normal. - The upper third of the main bile duct, middle third of the main bile duct and right and left intrahepatic branches (but not the right or left hepatic ducts) were dilated. - A severe localized biliary stricture was found. The stricture was malignant appearing. - A sphincterotomy was performed. - One covered metal stent (10 mm X 6 cm) was placed into the common bile duct. Recommendation: - Await pathology results. - [facility]. Vinnie Mccain M.D. Vinnie Mccain MD 02/27/2016 10:02:22 AM This report has been signed electronically. Note Initiated On: 02/27/2016 7:59 AM
--- NOTE | 2016-02-27 10:07 | Anesthesiology Progress Note ---
Anesthesia Post Op Note Date & Time Feb 27, 2016 at 10:06 Vital Signs Pain Intensity: 0 Vital Signs Past 12 Hours Date Time Temp Pulse Resp B/P Pulse Ox O2 Delivery O2 Flow Rate FiO2 02/27/16 09:55 46 12 162/83 100 Nasal Cannula 2 02/27/16 09:45 58 13 158/88 100 Mask 10 02/27/16 09:35 76 18 181/114 98 Mask 10 02/27/16 09:29 36.4 77 18 174/111 100 Mask 10 02/27/16 07:22 36.9 66 18 148/88 98 Room Air 02/27/16 04:16 37.7 71 18 152/87 99 02/27/16 04:08 37.0 77 18 131/79 98 Room Air 02/27/16 04:00 Room Air 02/27/16 00:12 37.0 77 18 131/79 98 Room Air 02/26/16 23:59 Room Air Notes Mental Status: alert / awake / arousable, participated in evaluation Pt Amnestic to Procedure: Yes Nausea / Vomiting: adequately controlled Pain: adequately controlled Airway Patency, RR, SpO2: stable & adequate BP & HR: stable & adequate Hydration State: stable & adequate Anesthetic Complications: no major complications apparent
--- NOTE | 2016-02-27 10:20 | [facility] Operative Report ---
Operative Report Operative Date Feb 27, 2016. Pre-Operative Diagnosis Pancreatic neoplasm with biliary obstruction and probable liver metastasis Post-Operative Diagnosis Same Procedure(s) Performed ERCP with papillotomy, biopsy, cytology, and stent placement Surgeon Dr. Vinnie Mccain Press Setup Operator Surgeon(s) none Estimated Blood Loss 0mL Findings see Provation note. Fluids 750 mL Specimens As Per Endoscopy staff Drains None Anesthesia General endotracheal Complication(s) None Disposition Recovery Room / PACU Indications Obstructive jaundice with pancreatic mass and biliary dilation on CT, liver lesions consistent with metastases. Description of Procedure see Provation note. I attest to the content of the Intraoperative Record and any orders documented therein. Any exceptions are noted below.
[2016-02-27] MEDS: D5W AND LACTATED RINGERS 1,000 ML IV SCH ×2 (10:43→10:47)
[2016-02-27] MEDS: AMLODIPINE BESYLATE 5 MG TAB PO SCH (10:44)
[2016-02-27] MEDS: PANTOprazole SOD 40 MG TAB PO SCH (10:44)
[2016-02-27] MEDS: PANCREAZE (LIPASE 16,800U) CAP PO SCH ×2 (12:15→17:14)
[2016-02-27] MEDS ORDERED: ENOXAPARIN 1 MG/KG SQ SCH (16:00)
[2016-02-27] MEDS ORDERED: INSULIN HUMAN REGULAR PER UNIT 10 UNITS in SYRINGE 9.9 ML IV SCH (17:00)
--- NOTE | 2016-02-27 17:01 | Pharmacy Progress Note ---
Glycemic: Assessment & Plan Date of Service Feb 27, 2016. Assessment & Plan The patient received 17 units of insulin on 02/24, 30 units on 02/25. BSGs ranging 98-468 mg/dl over the past 24hrs. Pt npo for ERCP,advanced to cl liq, then low fiber diet. Rec adding type 2 diabetic. Cipro IV switched to po. D5LR started preop still running- Dr MartinezSaba ok'd dc'ing. Will give one-time regular insulin bolus and increase Lantus to bid. A1c of 9.6% is defined as diabetes and should be treated, initially with insulin, then may be able to back off to oral meds. He will need close followup with outpatient provider. * Basal insulin: Lantus 10 units every 12 hours, if BSG is less than 110, give 5 units * Correctional Insulin: Novolog Correction per scale ACHS Goal Range: Low 110 mg/dL - High 150 mg/dL Correction Factor: 35 mg/dL/unit * Prandial insulin: Per carb ratio of 1 unit per 15 grams CHO consumed BSGs continue to improve, no other changes needed to inpatient regimen at this time. Pharmacy will continue to monitor patient daily and write orders per [facility] inpatient glycemic control protocol. Thanks. * Please note that the plan above was derived based on current level of insulin resistance and hospital stress. These recommendations are appropriate for inpatient admission only. Plan of care upon discharge will need to be reassessed to avoid potential outpatient hypo/hyperglycemia.
[2016-02-27] MEDS: ENOXAPARIN 80 MG/0.8 ML SYR SQ SCH (17:14)
--- NOTE | 2016-02-27 18:12 | Progress Note ---
Medicine Progress Note Date & Time of Visit: Feb 27, 2016 at 18:06. Subjective Patient seen and examined. Tolerated ERCP without incident. Objective Last 8 Hrs Date Time Temp Pulse Resp B/P Pulse Ox O2 Delivery O2 Flow Rate FiO2 02/27/16 16:30 100 Nasal Cannula 3.0 02/27/16 15:23 36.7 57 18 138/79 100 Nasal Cannula 3.0 02/27/16 11:46 97 Nasal Cannula 2.0 02/27/16 11:21 36.9 49 18 142/63 99 02/27/16 10:54 36.9 52 17 170/84 97 Room Air 1.0 02/27/16 10:15 51 18 158/87 100 Nasal Cannula 2 Physical Exam: General-awake; alert; NAD Eyes-EOMI; muddy sclera Neck-no stridor; trachea midline Lungs-CTA bilaterally; no wheezes/crackles Heart-RRR; no m/r/g Abdomen-soft; NTND; nBS Extremities-no c/c/e; no deformity Neuro-no gross focal deficits Laboratory Results: Last 24 Hours Test 02/26/16 20:10 02/27/16 06:49 02/27/16 06:58 02/27/16 09:36 Bedside Glucose 93 mg/dl 206 mg/dl 206 mg/dl White Blood Count 14.36 K/uL Red Blood Count 3.67 M/uL Hemoglobin 8.5 g/dL Hematocrit 25.2 % Mean Corpuscular Volume 68.7 fL Mean Corpuscular Hemoglobin 23.2 pg Mean Corpuscular Hemoglobin Concent 33.7 g/dl RDW Standard Deviation 47.4 fL RDW Coefficient of Variation 19.3 % Platelet Count 305 K/uL Activated Partial Thromboplast Time 26.0 SECONDS Partial Thromboplastin Ratio 1.0 Sodium Level 128 mmol/L Potassium Level 4.2 mmol/L Chloride Level 96 mmol/L Carbon Dioxide Level 24 mmol/L Anion Gap 8.0 mmol/L Blood Urea Nitrogen 18 mg/dl Creatinine 1.20 mg/dl Est Creatinine Clear Calc Drug Dose 54.3 ml/min Estimated GFR () 69.1 Estimated GFR (Non- 59.6 BUN/Creatinine Ratio 15.3 Random Glucose 202 mg/dl Calcium Level 8.8 mg/dl Total Bilirubin 17.6 mg/dl Aspartate Amino Transf (AST/SGOT) 62 U/L Alanine Aminotransferase (ALT/SGPT) 59 U/L Alkaline Phosphatase 577 U/L Total Protein 6.1 gm/dl Albumin 2.1 gm/dl Globulin 4.0 gm/dl Albumin/Globulin Ratio 0.5 Test 02/27/16 10:56 02/27/16 16:17 Bedside Glucose 251 mg/dl 468 mg/dl Assessment & Plan POSSIBLE METASTATIC PANCREATIC CANCER - patient with unintentional weight loss over the past month - liver ultrasound with intra and extrahepatic biliary ductal dilatation and soft tissue mass in pancreatic head - CT a/p highly suggestive of metastatic pancreatic adenocarcinoma - GI consulted - ERCP with stent placed - pathology from biopsy pending - continue prophylactic ciprofloxacin x5 days BILATERAL PE - likely related to underlying malignancy - heparin drip transitioned to Lovenox sq HYPERGLYCEMIA - started on insulin drip and was transitioned to insulin sq - hgb a1c of 9.6 - glycemic pharmacy consulted HTN - BP elevated on arrival, however improved - discontinued HCTZ and atenolol - PRN hydralazine - started amlodipine JEANA - resolved - likely due to severe hyperglycemia - resolved with IVF ANEMIA - hgb stable - colonoscopy 01/2016 negative per note sent from [facility] - folate, b12 normal - iron studies c/w anemia of chronic disease - may be related to underlying malignancy BRADYCARDIA - resolved - likely related to atenolol - EKG showed sinus bradycardia - discontinued beta sade DVT PROPHYLAXIS - Lovenox sq CODE STATUS - full code Anticipate discharge to skilled nursing tomorrow. Care coordinated with [facility] today. Consultants: Gastroenterology Procedures: Liver ultrasound 1. Intra and extrahepatic biliary ductal dilatation. Equivocal soft tissue mass in the region of the pancreatic head. CT scanning should be considered in follow -up. CT Chest 1. Multiple scattered bilateral segmental and subsegmental pulmonary emboli. 2. Trace right pleural effusion. 3. Emphysema. 4. Pancreatic mass with associated biliary and pancreatic duct dilatation. There are also a few hepatic metastatic lesions. Please refer to the same day abdomen CT for further evaluation. 5. Possible 12 mm soft tissue nodule abutting the anterior pericardium. Follow- up is recommended to exclude the possibility of a metastatic lesion. CT a/p 1. Findings highly suggestive of metastatic pancreatic adenocarcinoma. Uncinate process/pancreatic head mass measuring approximately 5.5 cm with associated biliary and pancreatic ductal dilatation, numerous hepatic metastases and several pathologic peripancreatic lymph nodes. GI consultation for consideration for endoscopic sampling is recommended. 2. Pancreatic parenchymal calcifications suggestive of chronic pancreatitis. Current Inpatient Medications: Current Inpatient Medications Medications (Trade) Dose Ordered Sig/Renuka Route Start Time Stop Time Status Last Admin Dose Admin Acetaminophen (Tylenol Tab) 650 mg Q4H PRN PO 02/23/16 21:30 03/24/16 21:29 Ondansetron HCl (Zofran Inj) 4 mg Q6H PRN IV 02/23/16 21:30 03/24/16 21:29 Aspirin (Ecotrin Tab) 81 mg QAM PO 02/24/16 09:00 03/25/16 08:59 02/26/16 08:32 81 MG Tamsulosin HCl (Flomax Cap) 0.4 mg DAILY PO 02/24/16 09:00 03/25/16 08:59 02/26/16 08:32 0.4 MG Pantoprazole Sodium (Protonix Tab) 40 mg QAM PO 02/24/16 09:00 03/25/16 08:59 02/27/16 10:44 40 MG Hydralazine HCl (HydrALAZINE INJ) 10 mg Q6H PRN IV. 02/23/16 22:45 03/24/16 22:44 02/25/16 08:40 10 MG Glucose (Glucose 40% Gel) 15-30 GRAMS 15 GRAMS... UD PRN PO 02/23/16 23:00 03/24/16 22:59 Glucose (Glucose Chew Tab) 4-8 Tablets 4 Tabl... UD PRN PO 02/23/16 23:00 03/24/16 22:59 Dextrose (Dextrose 50% 50ML Syringe) 25-50ML OF 50% DW IV FOR... UD PRN IV 02/23/16 23:00 03/24/16 22:59 Glucagon (Glucagon Inj) 1 mg UD PRN SQ 02/23/16 23:00 03/24/16 22:59 Miscellaneous Information (Consult Glycemic Management Pharmacy) 1 ea UD PRN N/A 02/24/16 02:45 03/25/16 02:44 Insulin Aspart (novoLOG ASPART) SLIDING SCALE ACHS SC 02/24/16 11:00 03/25/16 10:59 02/27/16 17:12 15 UNITS Ioversol (Optiray 320) 125 ml UD PRN IV 02/24/16 10:00 02/28/16 09:59 Amlodipine Besylate (Norvasc Tab) 10 mg QAM PO 02/25/16 10:30 03/26/16 10:29 02/27/16 10:44 10 MG Polyethylene (Miralax Powder Packet) 17 gm DAILY PRN PO 02/26/16 08:45 03/27/16 08:44 Amylase/Lipase/ Protease (Pancreaze 11889 Unit) 1 cap TIDM PO 02/27/16 11:30 03/28/16 11:29 02/27/16 17:14 1 CAP Ciprofloxacin (Cipro Tab) 500 mg BID PO 02/27/16 21:00 03/01/16 20:59 Enoxaparin Sodium (Lovenox Inj) 70 mg Q12 SQ 02/27/16 16:00 03/28/16 15:59 02/27/16 17:14 70 MG Insulin Glargine (Lantus Solostar Pen) IF BSG IS LESS THAN 110, G... BID SC 02/27/16 21:00 03/28/16 20:59
[2016-02-27] MEDS: CIPROFLOXACIN 500 MG TAB PO SCH (21:09)
[2016-02-27] MEDS ORDERED: INSULIN HUMAN REGULAR PER UNIT 4 UNITS in SYRINGE 3.96 ML IV ONE (21:15)
[2016-02-28 00:12] VITALS: BP 123/72; PULSE 58; TEMP 36.5; O2SAT 100
[2016-02-28] MEDS: INSULIN ASPART 100 UNITS/ML 3 ML PEN SC SCH ×4 (00:21→11:49)
[2016-02-28 03:39] VITALS: BP 150/81; PULSE 64; TEMP 36.8; O2SAT 100
[2016-02-28 06:30] LABS: HEMATOCRIT 24.1 % (42-52); MEAN CELL VOLUME 69.5 fL (80-100); MEAN CORPUSCULAR HEMOGLOBIN 23.3 pg (25-34); MEAN CORPUSCULAR HGB CONC 33.6 g/dl (32-36); PLATELET COUNT 305 K/uL (130-400); RED BLOOD COUNT 3.47 M/uL (4.7-6.1); WHITE BLOOD COUNT 11.25 K/uL (4.8-10.8)
[2016-02-28 07:20] LABS: ALB/GLOB RATIO 0.5 (0.9-2); BUN/CREATININE RATIO 15.3 (10-20); CALCIUM 8.9 mg/dl (8.5-10.1); CREATININE 1.1 mg/dl (0.60-1.40); POTASSIUM 4.1 mmol/L (3.5-5.1)
--- NOTE | 2016-02-28 07:27 | Gastroenterology Progress Note ---
Progress Note Date of Service: Feb 28, 2016 Subjective Pt evaluation today including: conversation w/ patient, physical exam The patient underwent an ERCP by yesterday due to biliary obstruction from a pancreatic mass. The patient had a metal stent placed to alleviate his obstruction. The patient notes having epigastric discomfort today but no nausea or vomiting. Review of Systems Constitutional: No fatigue, No fever, No weight loss Respiratory: No cough, No dyspnea at rest, No wheezing Abdomen: No constipation, No nausea Medications Current Inpatient Medications Medications (Trade) Dose Ordered Sig/Renuka Route Start Time Stop Time Status Last Admin Dose Admin Acetaminophen (Tylenol Tab) 650 mg Q4H PRN PO 02/23/16 21:30 03/24/16 21:29 Ondansetron HCl (Zofran Inj) 4 mg Q6H PRN IV 02/23/16 21:30 03/24/16 21:29 Aspirin (Ecotrin Tab) 81 mg QAM PO 02/24/16 09:00 03/25/16 08:59 02/26/16 08:32 81 MG Tamsulosin HCl (Flomax Cap) 0.4 mg DAILY PO 02/24/16 09:00 03/25/16 08:59 02/26/16 08:32 0.4 MG Pantoprazole Sodium (Protonix Tab) 40 mg QAM PO 02/24/16 09:00 03/25/16 08:59 02/27/16 10:44 40 MG Hydralazine HCl (HydrALAZINE INJ) 10 mg Q6H PRN IV. 02/23/16 22:45 03/24/16 22:44 02/25/16 08:40 10 MG Glucose (Glucose 40% Gel) 15-30 GRAMS 15 GRAMS... UD PRN PO 02/23/16 23:00 03/24/16 22:59 Glucose (Glucose Chew Tab) 4-8 Tablets 4 Tabl... UD PRN PO 02/23/16 23:00 03/24/16 22:59 Dextrose (Dextrose 50% 50ML Syringe) 25-50ML OF 50% DW IV FOR... UD PRN IV 02/23/16 23:00 03/24/16 22:59 Glucagon (Glucagon Inj) 1 mg UD PRN SQ 02/23/16 23:00 03/24/16 22:59 Miscellaneous Information (Consult Glycemic Management Pharmacy) 1 ea UD PRN N/A 02/24/16 02:45 03/25/16 02:44 Insulin Aspart (novoLOG ASPART) SLIDING SCALE ACHS SC 02/24/16 11:00 03/25/16 10:59 02/27/16 21:13 6 UNITS Ioversol (Optiray 320) 125 ml UD PRN IV 02/24/16 10:00 02/28/16 09:59 Amlodipine Besylate (Norvasc Tab) 10 mg QAM PO 02/25/16 10:30 03/26/16 10:29 02/27/16 10:44 10 MG Polyethylene (Miralax Powder Packet) 17 gm DAILY PRN PO 02/26/16 08:45 03/27/16 08:44 Amylase/Lipase/ Protease (Pancreaze 21140 Unit) 1 cap TIDM PO 02/27/16 11:30 03/28/16 11:29 02/27/16 17:14 1 CAP Ciprofloxacin (Cipro Tab) 500 mg BID PO 02/27/16 21:00 03/01/16 20:59 02/27/16 21:09 500 MG Enoxaparin Sodium (Lovenox Inj) 70 mg Q12 SQ 02/27/16 16:00 03/28/16 15:59 02/27/16 17:14 70 MG Insulin Glargine (Lantus Solostar Pen) 10 unit DAILY SC 02/28/16 09:00 03/29/16 08:59 Objective Vital Signs Date Time Temp Pulse Resp B/P Pulse Ox O2 Delivery O2 Flow Rate FiO2 02/28/16 04:00 Room Air 02/28/16 03:39 36.8 64 16 150/81 100 Room Air 02/28/16 00:12 36.5 58 16 123/72 100 Nasal Cannula 3.0 02/27/16 23:59 Room Air 02/27/16 20:00 Room Air 02/27/16 19:57 36.4 59 16 145/72 99 Nasal Cannula 3.0 02/27/16 16:30 100 Nasal Cannula 3.0 02/27/16 15:23 36.7 57 18 138/79 100 Nasal Cannula 3.0 02/27/16 11:46 97 Nasal Cannula 2.0 02/27/16 11:21 36.9 49 18 142/63 99 02/27/16 10:54 36.9 52 17 170/84 97 Room Air 1.0 02/27/16 10:15 51 18 158/87 100 Nasal Cannula 2 02/27/16 10:05 36.2 49 18 161/89 100 Nasal Cannula 2 02/27/16 09:55 46 12 162/83 100 Nasal Cannula 2 02/27/16 09:45 58 13 158/88 100 Mask 10 02/27/16 09:35 76 18 181/114 98 Mask 10 02/27/16 09:29 36.4 77 18 174/111 100 Mask 10 Physical Exam General Appearance: no apparent distress Eyes: + pertinent finding (jaundice) Neck: no JVD Respiratory/Chest: lungs clear Cardiovascular: regular rate, rhythm, no murmur Abdomen: soft, + tenderness (mild ruq tenderness) Neurologic/Psych: oriented x 3 Laboratory Results Last 24 Hours Test 02/27/16 09:36 02/27/16 10:56 02/27/16 16:17 02/27/16 20:13 Bedside Glucose 206 mg/dl 251 mg/dl 468 mg/dl 320 mg/dl Test 02/28/16 00:15 02/28/16 00:45 02/28/16 03:41 02/28/16 05:26 Bedside Glucose 183 mg/dl 113 mg/dl Magnesium Level 1.8 mg/dl White Blood Count 11.25 K/uL Red Blood Count 3.47 M/uL Hemoglobin 8.1 g/dL Hematocrit 24.1 % Mean Corpuscular Volume 69.5 fL Mean Corpuscular Hemoglobin 23.3 pg Mean Corpuscular Hemoglobin Concent 33.6 g/dl RDW Standard Deviation 49.0 fL RDW Coefficient of Variation 19.8 % Platelet Count 305 K/uL Activated Partial Thromboplast Time 27.1 SECONDS Partial Thromboplastin Ratio 1.0 Sodium Level 132 mmol/L Potassium Level 4.1 mmol/L Chloride Level 97 mmol/L Carbon Dioxide Level 25 mmol/L Anion Gap 10.0 mmol/L Blood Urea Nitrogen 17 mg/dl Creatinine 1.10 mg/dl Est Creatinine Clear Calc Drug Dose 60.7 ml/min Estimated GFR () 76.8 Estimated GFR (Non- 66.2 BUN/Creatinine Ratio 15.3 Random Glucose 106 mg/dl Calcium Level 8.9 mg/dl Total Bilirubin 16.2 mg/dl Aspartate Amino Transf (AST/SGOT) 44 U/L Alanine Aminotransferase (ALT/SGPT) 52 U/L Alkaline Phosphatase 532 U/L Total Protein 5.7 gm/dl Albumin 1.9 gm/dl Globulin 3.8 gm/dl Albumin/Globulin Ratio 0.5 Lipase 35 U/L Test 02/28/16 06:16 Bedside Glucose 126 mg/dl Assessment and Plan Patient admitted with obstructive jaundice found to have evidence of a pancreatic mass with likely metastatic disease to his liver. ERCP appears to have been successful as his bilirubin is starting to drop. I suspect that his discomfort is related to the stent opening which should take anywhere between 24 and 36 hours. His lipase this morning is not elevated therefore it is unlikely he has post-ERCP pancreatitis. Recommendations Continue antibiotic coverage for another 5 days Advance diet as tolerated (consider a liquid diet today) Await pathology results, follow-up per Dr. Mccain Once pathology result is available would recommend oncology consultation Please call with any questions over the weekend, coverage to resume on Tuesday
[2016-02-28 07:39] VITALS: BP 143/84; PULSE 63; TEMP 36.6; O2SAT 100
[2016-02-28] MEDS: ENOXAPARIN 80 MG/0.8 ML SYR SQ SCH (07:59)
[2016-02-28] MEDS: PANTOprazole SOD 40 MG TAB PO SCH (07:59)
[2016-02-28] MEDS: AMLODIPINE BESYLATE 5 MG TAB PO SCH (08:00)
[2016-02-28] MEDS: TAMSULOSIN HCL 0.4 MG CAP PO SCH (08:00)
[2016-02-28] MEDS: ASPIRIN 81 MG ECTAB PO SCH (08:01)
[2016-02-28] MEDS: PANCREAZE (LIPASE 16,800U) CAP PO SCH ×2 (08:01→11:47)
[2016-02-28] MEDS: CIPROFLOXACIN 500 MG TAB PO SCH (08:01)
[2016-02-28 08:05] VITALS: BP 130/77; O2SAT 100
[2016-02-28] MEDS ORDERED: INSULIN GLARGINE SOLOSTAR 100 UNITS/ML 3 ML PEN SC SCH (09:00)
--- NOTE | 2016-02-28 10:38 | Pharmacy Progress Note ---
Glycemic Control: Progress Nt Date of Service Feb 28, 2016. Scope Glycemic Pharmacist consulted by Sariah Pineda on 02/23/2016 for glycemic control and to write orders per [facility] inpatient glycemic control protocol. Objective Accuchecks BSG (last 24hrs): Test 02/27/16 10:56 02/27/16 16:17 02/27/16 20:13 02/28/16 00:15 Bedside Glucose 251 mg/dl (70-99) 468 mg/dl (70-99) 320 mg/dl (70-99) 183 mg/dl (70-99) Test 02/28/16 03:41 02/28/16 05:26 02/28/16 06:16 Bedside Glucose 113 mg/dl (70-99) 126 mg/dl (70-99) Random Glucose 106 mg/dl (70-99) Laboratory Data (last 24hrs) Test 02/28/16 05:26 Anion Gap 10.0 mmol/L BUN/Creatinine Ratio 15.3 Blood Urea Nitrogen 17 mg/dl Creatinine 1.10 mg/dl Potassium Level 4.1 mmol/L Sodium Level 132 mmol/L White Blood Count 11.25 K/uL HbA1c: Test 02/23/16 19:17 Hemoglobin A1c 9.6 %(4.5-5.6) H Recent Pertinent Medications Outpatient Anti-diabetic Regimen: * none prior to admission * A1c = 9.6 % 02/2016 The patient is currently receiving: * Basal insulin: Lantus 10 units every 12 hours * Correctional Insulin: Novolog Correction per scale ACHS Goal Range: Low 110 mg/dL - High 180 mg/dL Correction Factor: 30 mg/dL/unit * Prandial insulin: Per carb ratio of 1 unit per 12 grams CHO consumed * Oral Agents: none at this time Assessment & Plan ASSESSMENT: * ADA & AACE recommend a goal blood sugar range 140-180 mg/dl for the majority of critically ill & non-critically ill patients. However, more stringent targets may be selected in individual cases. * 75 y/o who had not been receiving antidiabetic medications prior to admission * A1c on admission is diagnostic of diabetes and the patient will require treatment upon discharge. * Currently, insulin needs are unknown and variable secondary to dextrose infusion/NPO status on 02/26. * requiring anywhere from 17-63 units of insulin per day - target ~25 units per day for outpatient initial dosing - starting low and titrating based on response will be safest. * Goal A1c is ~7.6-8% based on his Elements of Diabetes Care score. PLAN FOR INPATIENT GLYCEMIC CONTROL: * Lantus 10 units SQ daily * NovoLog AC and HS * Correction factor: 30mg/dL/unit * Carb ratio: 1 unit per 12 g of CHO consumed * Goal range: 110-150mg/dL RECOMMENDATIONS FOR DISCHARGE: * Basal insulin (brand may depend on formulary) 10 units SQ daily * titrate upwards by ~20% every 3-5 days depending on fasting BSG * Prandial insulin (brand may depend on formulary ) 5 units SQ with meals * titrate upwards depending on post prandial BSGs * may also benefit from a sliding scale if BSG is >180mg/dL * Metformin 500mg PO BID with meals - titrate up to 1000mg PO BID with meals * renal function appropriate. hepatic disease/failure may increase risk of lactic acidosis * Please note that the plan above was derived based on current level of insulin resistance and hospital stress. These recommendations are appropriate for inpatient admission only. Plan of care upon discharge will need to be reassessed to avoid potential outpatient hypo/hyperglycemia. Thank you.
[2016-02-28 11:13] VITALS: BP 130/77; PULSE 63; TEMP 36.6; O2SAT 100
[2016-02-28 11:20] VITALS: BP 129/76; PULSE 73; TEMP 37; O2SAT 98
[2016-02-28] MEDS ORDERED: NVLGIPEN SC (11:26)
[2016-02-28] MEDS ORDERED: INSDGIPEN SC (11:26)
[2016-02-28] MEDS ORDERED: NRV5 PO (11:26)
[2016-02-28] MEDS ORDERED: MRLP17X PO (11:26)
[2016-02-28] MEDS ORDERED: LVNIS80 SQ (11:26)
[2016-02-28] MEDS ORDERED: GLC500 PO (11:26)
[2016-02-28] MEDS ORDERED: PANCCAP3 PO (11:26)
[2016-02-28] MEDS ORDERED: CPR500 PO (11:26)
--- NOTE | 2016-02-28 11:29 | Discharge Instructions ---
Discharge Instructions Admission Reason for Admission: Hyperglycemia Discharge Discharge Diagnosis / Problem: Mayela metastatic pancreatic cancer Discharge Goals Goal(s): Therapeutic intervention Activity Recommendations Activity Limitations: resume your previous activity . Instructions / Follow-Up Instructions / Follow-Up Awaiting ERCP biopsy results before referral to Oncology. Current Hospital Diet Patient's current hospital diet: Low Fiber Diet, Diabetes Type 2 Diet Discharge Diet Recommended Diet: Diabetes Type 2 Diet, Low Fiber Diet Procedures Procedures Performed: Endoscopic Retrograde Cholangiopancreatogram with papillotomy and stent. Pending Studies Studies pending at discharge: yes List of pending studies: Pathology from ERCP pending for mayela metastatic pancreatic cancer Laboratory Results Hemoglobin A1c Test 02/23/16 19:17 Range/Units Estimated Average Glucose 229 mg/dl Hemoglobin A1c 9.6 H 4.5-5.6 % Medical Emergencies . Who to Call and When: Medical Emergencies: If at any time you feel your situation is an emergency, please call 911 immediately. . Non-Emergent Contact Non-Emergency issues call your: Primary Care Provider . . "Provider Documentation" section prepared by Kim Mendoza. VTE Core Measure Inpt VTE Proph given/why not?: Enoxaparin (Lovenox)SQ
--- NOTE | 2016-02-28 18:45 | Discharge Summary ---
Discharge Summary Admission Date: Feb 23, 2016 at 21:25 Discharge Date: Feb 28, 2016 Discharge Disposition: Home (Skilled Nursing) Principal Diagnosis: Likely metastatic pancreatic cancer Procedures: Liver ultrasound 1. Intra and extrahepatic biliary ductal dilatation. Equivocal soft tissue mass in the region of the pancreatic head. CT scanning should be considered in follow -up. CT Chest 1. Multiple scattered bilateral segmental and subsegmental pulmonary emboli. 2. Trace right pleural effusion. 3. Emphysema. 4. Pancreatic mass with associated biliary and pancreatic duct dilatation. There are also a few hepatic metastatic lesions. Please refer to the same day abdomen CT for further evaluation. 5. Possible 12 mm soft tissue nodule abutting the anterior pericardium. Follow- up is recommended to exclude the possibility of a metastatic lesion. CT a/p 1. Findings highly suggestive of metastatic pancreatic adenocarcinoma. Uncinate process/pancreatic head mass measuring approximately 5.5 cm with associated biliary and pancreatic ductal dilatation, numerous hepatic metastases and several pathologic peripancreatic lymph nodes. GI consultation for consideration for endoscopic sampling is recommended. 2. Pancreatic parenchymal calcifications suggestive of chronic pancreatitis. Consultations: Gastroenterology Medication Reconciliation New Medications: Metformin HCl (Metformin HCl) 500 Mg Tab 1 TAB PO BID for 30 Days Amlodipine Besylate (Amlodipine Besylate) 5 Mg Tab 10 MG PO QAM for 30 Days, #60 TAB Ciprofloxacin (Ciprofloxacin HCl) 500 Mg Tab 500 MG PO BID for 4 Days, #8 TAB Enoxaparin (Lovenox) 80 Mg/0.8 Ml Inj 70 MG SQ Q12 for 30 Days Insulin Aspart (Novolog Flexpen) 100 Units/Ml Inj 5 UNITS SC TIDM for 30 Days Insulin Glargine (Lantus Solostar) 100 Unit/Ml Inj 10 UNIT SC DAILY for 30 Days Pancrelipase (Lipase-Protease- (Pancreaze) 1 Cap Cap 1 CAP PO TIDM for 30 Days, CAP Polyethylene (Miralax) 17 Gm Pow 17 GM PO DAILY PRN for Constipation for 30 Days Continued Medications: Ascorbic Acid (Vitamin C) 500 Mg Tab 500 MG PO DAILY Aspirin (Aspirin Chewable) 81 Mg Chew 81 MG PO DAILY Omeprazole (Prilosec) 20 Mg Capcr 20 MG PO DAILY, CAP Tamsulosin HCl (Tamsulosin HCl) 0.4 Mg Cap 0.4 MG PO DAILY Discontinued Medications: Atenolol (Tenormin) 25 Mg Tab 25 MG PO DAILY, TAB Ferrous Gluconate (Ferrous Gluconate) 324 Mg Tab 324 MG PO BID Hydrochlorothiazide (Hctz) 25 Mg Tab 25 MG PO DAILY, TAB Meloxicam (Meloxicam) 15 Mg Tab 15 MG PO DAILY Admission Information HPI (per Admitting provider): 75 year old male who presents to the ER from [facility] for evaluation of shortness of breath. About one month ago, patient was found to have iron deficiency anemia. He had a colonoscopy that was unremarkable. Hgb at that time was 10.5, LFTs were WNL, glucose 130, and creatinine was 1.0. Patient reports increasing shortness of breath over the past one month. He reports he gets short of breath with minimal exertion. He also has had a sudden 20 pound weight loss. He notes increased thirst and urination. He has had a poor appetite and occasional nausea. No vomiting. He denies abdominal pain, diarrhea, or constipation. No change in bowel habits. He denies chest pain. No lightheadedness, dizziness, diaphoresis, or syncopal event. No fever or chills. He denies dysuria. In the ER, patient is found to have glucose 722, transaminitis, creat 1.6, and hgb 9.5. He was treated with insulin and IVF. Physical Exam (per Admitting): General Appearance: no apparent distress, + cachetic Head: normocephalic Eyes: + abnormal sclerae exam (icteric) ENT: hearing grossly normal Neck: supple, no JVD Respiratory/Chest: lungs clear, normal breath sounds, no respiratory distress Cardiovascular: regular rate, rhythm, no edema, normal peripheral pulses Abdomen/GI: normal bowel sounds, non tender, soft Extremities/Musculoskelatal: normal inspection, no calf tenderness Neurologic/Psych: no motor/sensory deficits, alert, normal mood/affect, oriented x 3 Skin: normal color, warm/dry Hospital Course Patient was admitted due to SOB and hyperglycemia. Patient had noticed unintentional weight loss over the past month, and labs on admission were notable for elevated bilirubin and alkaline phosphatase. Liver ultrasound showed intra and extrahepatic biliary ductal dilatation and soft tissue mass in pancreatic head. CT a/p was highly suggestive of metastatic pancreatic adenocarcinoma. GI was consulted. ERCP was done on 02/26 with papillotomy, biopsy , cytology and stent placement. Patient tolerated procedure well without complications. Patient was started on prophylactic ciprofloxacin (start date ) for 5 days. Pathology is still pending at the time of discharge and patient will need Oncology referral when pathology results are available. Patient was started on pancreatic enzymes. Glycemic pharmacy was consulted to assist with hyperglycemia. A1c was noted to be 9.6. Patient was initially started on an insulin drip. He was then transitioned to sq insulin, which was continued upon discharge. Patient was also started on metformin upon discharge. Patient had an elevated d-dimer on admission. CT chest revealed bilateral PE's. Patient was started on a heparin drip, and this was transitioned to Lovenox sq after the ERCP. HCTZ and atenolol were discontinued, due to JEANA and bradycardia on admission. Patient was started on amlodipine with good blood pressure control. Patient has a h/o anemia, and Hgb remained stable in the 8-'s. Patient reportedly had a negative colonoscopy in 01/2016. Folate and B12 were normal. Iron studies were c/w anemia of chronic disease. Iron supplementation was stopped given the elevated ferritin. Patient deemed stable for discharge. Care was coordinated with [facility]. PE on discharge: General- awake; alert; NAD Eyes- EOMI; no scleral icterus Neck- no stridor; trachea midline Lungs- CTA bilaterally; no wheezes/crackles Heart- RRR; no m/r/g Abdomen- soft; mildly tender to palpation; ND; nBS Back- no gross abnormalities Extremities- no c/c/e; no deformity Neuro- no gross focal deficits Skin- no appreciable rash or bruise . Total time spent on discharge = This includes examination of the patient, discharge planning, medication reconciliation, and communication with other providers. Discharge Instructions Discharge Instructions Admission Reason for Admission: Hyperglycemia Discharge Discharge Diagnosis / Problem: Mayela metastatic pancreatic cancer Discharge Goals Goal(s): Therapeutic intervention Activity Recommendations Activity Limitations: resume your previous activity . Instructions / Follow-Up Instructions / Follow-Up Awaiting ERCP biopsy results before referral to Oncology. Current Hospital Diet Patient's current hospital diet: Low Fiber Diet, Diabetes Type 2 Diet Discharge Diet Recommended Diet: Diabetes Type 2 Diet, Low Fiber Diet Procedures Procedures Performed: Endoscopic Retrograde Cholangiopancreatogram with papillotomy and stent. Pending Studies Studies pending at discharge: yes List of pending studies: Pathology from ERCP pending for mayela metastatic pancreatic cancer Laboratory Results Hemoglobin A1c Test 02/23/16 19:17 Range/Units Estimated Average Glucose 229 mg/dl Hemoglobin A1c 9.6 H 4.5-5.6 % Medical Emergencies . Who to Call and When: Medical Emergencies: If at any time you feel your situation is an emergency, please call 911 immediately. . Non-Emergent Contact Non-Emergency issues call your: Primary Care Provider . . "Provider Documentation" section prepared by Kim Mendoza. VTE Core Measure Inpt VTE Proph given/why not?: Enoxaparin (Lovenox)SQ Additional Copies To [employer], [facility]
[2016-03-08] MEDS ORDERED: LVNIS40 SQ (13:13)
== END 2016-02-28 13:18 | DRG 436 ==
LOC: ENRESERVTM → ENRESERVDT → EDBD 17:47 → C.EDB 17:48 → C.2T 21:25
PROVIDERS: ADMIT Family Medicine; ATTEND Internal Medicine
PROC: 0F7D8DZ Dilation of Pancreatic Duct with Intraluminal Device, Via Natural or Artificial Opening Endoscopic (ICD-10-PCS; principal; 2016-02-27 08:00)
DX: C25.9 Malignant neoplasm of pancreas, unspecified (principal); N17.9 Acute kidney failure, unspecified; E87.1 Hypo-osmolality and hyponatremia; K86.1 Other chronic pancreatitis; C78.7 Secondary malignant neoplasm of liver and intrahepatic bile duct; F17.200 Nicotine dependence, unspecified, uncomplicated; I10 Essential (primary) hypertension; R00.1 Bradycardia, unspecified; N40.0 Benign prostatic hyperplasia without lower urinary tract symptoms; E11.65 Type 2 diabetes mellitus with hyperglycemia

== ENCOUNTER 2016-03-03 17:16 | Inpatient (IN) | payer OTHER ==
[~2016-03-03] VITALS: Ht 180.3 cm; Wt 69.4 kg
[~2016-03-03 17:16] MED LIST changes: +CPR500 PO; -DOXA4TAB2 PO; +GLC500 PO; -HYDR25TA4 PO; -IBUP1CAP9; +INSDGIPEN SC; +LVNIS80 SQ; +MRLP17X PO; +NRV5 PO; +NVLGIPEN SC; +PANCCAP3 PO; -RANI300T2 PO; -VRP40 PO
[2016-03-03] MEDS ORDERED: ACET-1256 PO (17:33)
[2016-03-03] MEDS ORDERED: SODIUM CHLORIDE 0.9% 1000ML 1,000 ML IV STA ×2 (17:36→23:28)
[2016-03-03] MEDS ORDERED: ONDANSETRON INJ 2 MG/ML 2 ML VIAL IV STA (17:36)
[2016-03-03] MEDS ORDERED: LVNIS80 SC (17:37)
[2016-03-03] MEDS ORDERED: ASPEC81 PO (17:37)
[2016-03-03] MEDS ORDERED: AMLO-110 PO (17:37)
[2016-03-03] MEDS ORDERED: GLC/500 PO (17:39)
[2016-03-03] MEDS ORDERED: PANCCAP2 PO (17:42)
[2016-03-03] MEDS ORDERED: POLY1POW2 PO (17:42)
[2016-03-03] MEDS ORDERED: INSHRIE SC (17:48)
[2016-03-03] MEDS ORDERED: INSDGI SC (17:49)
[2016-03-03] MEDS ORDERED: LACT10SO17 PO (17:52)
[2016-03-03] MEDS ORDERED: ASCA500 PO (18:17)
[2016-03-03] MEDS ORDERED: PRLSR20 PO (18:17)
[2016-03-03] MEDS ORDERED: FLM4 PO (18:17)
--- NOTE | 2016-03-03 18:19 | DIAGNOSTIC IMAGING REPORT ---
CHEST ONE VIEW PORTABLE HISTORY: near syncope COMPARISON: None. FINDINGS: The lungs are clear. Cardiac silhouette is normal in size. No pleural effusions. No pneumothorax. IMPRESSION: No acute process. Electronically signed by: Ed Lorenz M.D. 03/03/2016 6:17 PM Dictated Date/Time: 03/03/2016 6:15 PM
[2016-03-03 18:26] LABS: ALT/SGPT 41 U/L (12-78); AST/SGOT 23 U/L (15-37); BLOOD UREA NITROGEN 20 mg/dl (7-18); BUN/CREATININE RATIO 16.4 (10-20); CALCIUM 8.6 mg/dl (8.5-10.1); CARBON DIOXIDE 23 mmol/L (21-32); CHLORIDE 100 mmol/L (98-107); GLUCOSE 288 mg/dl (70-99); POTASSIUM 4.3 mmol/L (3.5-5.1); SODIUM 132 mmol/L (136-145)
[2016-03-03 18:30] LABS: HEMATOCRIT 19.9 % (42-52); MEAN CORPUSCULAR HEMOGLOBIN 23.4 pg (25-34); MEAN CORPUSCULAR HGB CONC 31.7 g/dl (32-36); MEAN PLATELET VOLUME 11.3 fL (7.4-10.4); PLATELET COUNT 347 K/uL (130-400); RED BLOOD COUNT 2.69 M/uL (4.7-6.1); WHITE BLOOD COUNT 11.44 K/uL (4.8-10.8)
[2016-03-03 18:31] LABS: BASO % 0.2 %; BASO ABS # 0.02 K/uL (0-0.2); COMPLETE YES; EOS % 0.4 %; HYPOCHROMIA PRESENT; IG% 1.8 %; LYMPH % 6.5 %; LYMPH ABS # 0.74 K/uL (1.2-3.4); MONO % 12.2 %; NEUT % 78.9 %; POLYCHROMASIA 1+; SCHISTOCYTES 1+; TARGET CELLS 2+
[2016-03-03 18:33] LABS: ALKALINE PHOSPHATASE 404 U/L (45-117)
[2016-03-03 19:00] LABS: INR 1.1 (0.9-1.1); PARTIAL THROMBOPLASTIN RATIO 1.1; PROTHROMBIN TIME (PATIENT) 11.7 SECONDS (9.0-12.0)
[2016-03-03] MEDS ORDERED: ACETAMINOPHEN 325 MG TAB PO PRN (20:00)
[2016-03-03] MEDS ORDERED: NITROGLYCERIN 0.4 MG SL PER TAB CHARGE SL PRN (20:00)
[2016-03-03] MEDS ORDERED: ONDANSETRON INJ 2 MG/ML 2 ML VIAL IV PRN (20:00)
[2016-03-03] MEDS ORDERED: NVLG SC (20:05)
[2016-03-03] MEDS ORDERED: AMLO-114 PO (20:05)
[2016-03-03] MEDS ORDERED: GLUCOSE 40% GEL 15 GM TUBE PO PRN (20:15)
[2016-03-03] MEDS ORDERED: GLUCOSE 10 TABS/TUBE PO PRN (20:15)
[2016-03-03] MEDS ORDERED: DEXTROSE 50% 50 ML SYR IV PRN (20:15)
[2016-03-03] MEDS ORDERED: GLUCAGON FOR INJ 1 MG VIAL SQ PRN (20:15)
--- NOTE | 2016-03-03 20:15 | EMERGENCY ROOM VISIT NOTE ---
History Report prepared by [place]: Niurka Ramos Under the Supervision of: Dr. Harry Peña D.O. First contact with patient: 17:26 Chief Complaint: ABDOMINAL PAIN Stated Complaint: AB PAIN History of Present Illness The patient is a 75 year old male who presents to the Emergency Room with complaints of constant abdominal pain beginning just [employer]. The patient states that he was taking a shower and when he got out he became short of breath and lowered himself to the ground. Following the fall he states that he had abdominal pain and vomited but that is now resolved. He reports that he was admitted to the hospital recently for dry heaves, abdominal pain, and pancreatic cancer. He notes that he had a stent placed. The patient denies any changes in bowel movements, loss of consciousness, nausea, chest pain and blood in the stool. He states that his eyes started turning yellow last week when he was in the hospital. He notes that he had a stent placed. The patient states that he is not on blood thinners but has a history of irregular heart beat. Source of History: patient Onset: just ST[employer] Position: abdomen Timing: constant Associated Symptoms: + SOB, + vomiting, No LOC, No chest pain, No nausea Note: The patient denies any changes in bowel movements, and blood in the stool. Review of Systems See HPI for pertinent positives & negatives. A total of 10 systems reviewed and were otherwise negative. Past Medical & Surgical Medical Problems: (1) Anemia (2) Arthritis (3) Diabetes mellitus, type II (4) GERD (gastroesophageal reflux disease) (5) History of pulmonary embolus (PE) (6) HTN (hypertension) (7) Pancreatic adenocarcinoma Surgical Problems: (1) History of liver excision (2) S/P cholecystectomy Family History Patient reports no known family medical history. Social History Smoking Status: Current Every Day Smoker Alcohol Use: other Drug Use: none Housing Status: other Current/Historical Medications Scheduled Acetaminophen (Tylenol), 1,000 MG PO QID Amlodipine (Norvasc), 10 MG PO DAILY Ascorbic Acid (Vitamin C), 500 MG PO DAILY Aspirin (Aspirin EC Low Dose), 81 MG PO DAILY Enoxaparin (Lovenox), 80 MG SC BID Insulin Aspart (Novolog), 5 UNITS SC TID Insulin Glargine (Lantus), 10 UNITS SC QAM Metformin Hcl (Glucophage), 500 MG PO BID Omeprazole (Prilosec), 20 MG PO DAILY Pancrelipase (Lipase-Protease- (Pancreaze), 1 CAP PO WM Polyethylene Glycol 3350 (Bulk (Polyethylene Glycol 3350), 17 GM PO DAILY Tamsulosin HCl (Tamsulosin HCl), 0.4 MG PO DAILY Scheduled PRN Lactulose (Chronulac), 30 ML PO TID PRN for Constipation Allergies Coded Allergies: Enalapril (Verified Allergy, Unknown, UNKNOWN, 02/23/16) Physical Exam Vital Signs Date Time Temp Pulse Resp B/P Pulse Ox O2 Delivery O2 Flow Rate FiO2 03/03/16 19:19 64 20 129/72 100 Room Air 03/03/16 17:48 64 03/03/16 17:30 36.5 62 16 110/66 99 Room Air Physical Exam GENERAL: alert, sitting up in bed, shackled to stretcher, chronically ill appearing, malnourished EYE EXAM: scleral icterus, PERRL and EOM's intact OROPHARYNX: no exudate, no erythema, lips, buccal mucosa, and tongue normal and mucous membranes are moist NECK: supple, no nuchal rigidity, no adenopathy, non-tender LUNGS: Clear to auscultation. Normal chest wall mechanics HEART: irregular with systolic ejection murmur, S1 normal and S2 normal ABDOMEN: abdomen soft, non-tender, normo-active bowel sounds, no masses, no rebound or guarding. BACK: Back is symmetrical on inspection and there is no deformity, no midline tenderness, no CVA tenderness. SKIN: no rashes and no bruising UPPER EXTREMITIES: upper extremities are grossly normal. LOWER EXTREMITIES: No pitting edema. NEURO EXAM: Normal sensorium, cranial nerves II-XII intact, normal speech, no weakness of arms, no weakness of legs. Medical Decision & Procedures ER Provider Diagnostic Interpretation: Xray results per the radiologist and my interpretation. CHEST ONE VIEW PORTABLE FINDINGS: The lungs are clear. Cardiac silhouette is normal in size. No pleural effusions. No pneumothorax. IMPRESSION: No acute process. Electronically signed by: Ed Lorenz M.D. 03/03/2016 6:17 PM Dictated Date/Time: 03/03/2016 6:15 PM Laboratory Results 03/03/16 17:55 Red Blood Count 2.69, Mean Corpuscular Volume 74.0, Mean Corpuscular Hemoglobin 23.4, Mean Corpuscular Hemoglobin Concent 31.7, Mean Platelet Volume 11.3, Neutrophils (%) (Auto) 78.9, Lymphocytes (%) (Auto) 6.5, Monocytes (%) (Auto) 12.2, Eosinophils (%) (Auto) 0.4, Basophils (%) (Auto) 0.2, Neutrophils # (Auto ) 9.03, Lymphocytes # (Auto) 0.74, Monocytes # (Auto) 1.39, Eosinophils # (Auto ) 0.05, Basophils # (Auto) 0.02 03/03/16 17:55 Test 03/03/16 17:55 White Blood Count 11.44 K/uL (4.8-10.8) Red Blood Count 2.69 M/uL (4.7-6.1) Hemoglobin 6.3 g/dL (14.0-18.0) Hematocrit 19.9 % (42-52) Mean Corpuscular Volume 74.0 fL (80-100) Mean Corpuscular Hemoglobin 23.4 pg (25-34) Mean Corpuscular Hemoglobin Concent 31.7 g/dl (32-36) Platelet Count 347 K/uL (130-400) Mean Platelet Volume 11.3 fL (7.4-10.4) Neutrophils (%) (Auto) 78.9 % Lymphocytes (%) (Auto) 6.5 % Monocytes (%) (Auto) 12.2 % Eosinophils (%) (Auto) 0.4 % Basophils (%) (Auto) 0.2 % Neutrophils # (Auto) 9.03 K/uL (1.4-6.5) Lymphocytes # (Auto) 0.74 K/uL (1.2-3.4) Monocytes # (Auto) 1.39 K/uL (0.11-0.59) Eosinophils # (Auto) 0.05 K/uL (0-0.5) Basophils # (Auto) 0.02 K/uL (0-0.2) RDW Standard Deviation 52.9 fL (36.4-46.3) RDW Coefficient of Variation 20.3 % (11.5-14.5) Immature Granulocyte % (Auto) 1.8 % Immature Granulocyte # (Auto) 0.21 K/uL (0.00-0.02) Polychromasia 1+ Hypochromasia PRESENT Target Cells 2+ Schistocytes 1+ Prothrombin Time 11.7 SECONDS (9.0-12.0) Prothromb Time International Ratio 1.1 (0.9-1.1) Activated Partial Thromboplast Time 27.6 SECONDS (21.0-31.0) Partial Thromboplastin Ratio 1.1 D-Dimer 3000 ug/L FEU (0-500) Anion Gap 9.0 mmol/L (3-11) Est Creatinine Clear Calc Drug Dose 55.9 ml/min Estimated GFR () 69.1 Estimated GFR (Non- 59.6 BUN/Creatinine Ratio 16.4 (10-20) Calcium Level 8.6 mg/dl (8.5-10.1) Total Bilirubin 5.1 mg/dl (0.2-1) Direct Bilirubin 4.6 mg/dl (0-0.2) Aspartate Amino Transf (AST/SGOT) 23 U/L (15-37) Alanine Aminotransferase (ALT/SGPT) 41 U/L (12-78) Alkaline Phosphatase 404 U/L (45-117) Troponin I < 0.015 ng/ml (0-0.045) Total Protein 6.6 gm/dl (6.4-8.2) Albumin 2.2 gm/dl (3.4-5.0) Lipase 35 U/L (73-393) Date/Time Source Procedure Growth Status 03/03/16 00:00 Nasal MRSA DNA Surveillance Screen - Final Specimen Negative for MRSA by DNA Probe Complete Laboratory results per my review. Medications Administered Medications (Trade) Dose Ordered Sig/Renuka Route Start Time Stop Time Status Last Admin Dose Admin Sodium Chloride (Nss 1000ml) 1,000 ml @ 999 mls/hr Q1H1M STAT IV 03/03/16 17:36 03/03/16 18:36 DC 03/03/16 18:00 999 MLS/HR Ondansetron HCl (Zofran Inj) 4 mg NOW STAT IV 03/03/16 17:36 03/03/16 17:39 DC 03/03/16 17:59 4 MG ECG Indication: other (abdominal pain) Rate (beats per minute): 57 Rhythm: sinus bradycardia Findings: PAC, prolonged QT ED Course ED COURSE: Vital signs were reviewed and normal The patients medical record was reviewed The above diagnostic studies were performed and reviewed. ED treatments and interventions as stated above. 1726: The patient was evaluated in room C9. A complete history and physical examination was performed. 1736: Zofran Inj 4mg IV, Sodium Chloride 1000 ml @ 999 mls/hr IV. 1830: I reevaluated the patient. He is doing well. 1856: I did a rectal exam on the patient. He was heme negative and consented for blood. 1903: I reviewed the patient's case with Kayli Alejandro of [facility]. She will evaluate the patient for further management. 1914: Upon reevaluation, the patient is hemodynamically stable.I discussed my findings with the patient and he understands and agrees with the treatment plan. Based on the patients age, coexisting illnesses, exam and lab findings the decision to treat as an inpatient was made. The patient remained stable while under my care. The patient will be evaluated for further management. Medical Decision Differential diagnosis includes etiologies such as vasovagal event, infection, hypoglycemia, electrolyte abnormalities, cardiac sources, intracerebral event, toxicologic, neurologic, as well as others were entertained. CT of abdomen/pelvis suggests metastatic pancreatic adenocarcinoma. CT of the chest showed multiple bilateral segmental and subsegmental PEs. he was placed on Lovenox at that time and eventually discharged back to the long term following the diagnosis of metastatic cancer. He presents today following walking out of the shower and feeling short of breath and almost passing out. He notes that he did have some abdominal pain and vomiting. Labs are remarkable for anemia with a hemoglobin of 6.3 which dropped from 9 prior to discharge 4 days ago. BMP was unremarkable. Lactate was slightly elevated 2.7. BSG was elevated at 280. Bilirubin was elevated but improved from his previous at 5 down from 16. Troponin was negative. EKG was nondiagnostic. His d-dimer was positive. He has not missed his subcutaneous Lovenox and with his anemia I do feel this is explainable and reasonable cause of his near syncopal episode. As he is on therapeutic Lovenox and did not pursue CT PE again. At rest his vitals are stable. Rectal was heme-negative although with the sudden drop in hemoglobin and recent start of Lovenox to feel is most likely secondary to his anticoagulated status and a possible occult GI bleed. Abdominal exam was completely benign. There is no signs peritonitis. He is admitted to internal medicine following consent for transfusion for symptomatic anemia. Consults Time Called: [id number] Consulting Physician: Kayli Salazar Returned Call: [phone] I reviewed the patient's case with Kayli Ruggiero. She will evaluate the patient for further management. Impression Primary Impression: Symptomatic anemia Additional Impression: Hyperglycemia Scribe Attestation The scribe's documentation has been prepared under my direction and personally reviewed by me in its entirety. I confirm that the note above accurately reflects all work, treatment, procedures, and medical decision making performed by me. Departure Information Dispostion Being Evaluated By Hospitalist [facility]errals [facility] Patient Instructions My [facility] Problem Qualifiers
[2016-03-03] MEDS ORDERED: OPTIRAY 320 IV PRN (20:30)
[2016-03-03 21:00] VITALS: BP 158/60; PULSE 61; TEMP 36.7; O2SAT 100; Ht 180.3 cm; Wt 69.4 kg
--- NOTE | 2016-03-03 21:03 | History and Physical ---
History & Physical Date & Time of Service: Mar 03, 2016 at 20:18 Chief Complaint: Ab Pain Primary Care Physician: Elvin GIVENS History of Present Illness Source: patient This is a 75 y/o male with PMHx of recently diagnosed Metastatic pancreatic adenocarcinoma, recent h/o PE on Lovenox, Insulin dependent DM2, HTN and other problems as outlined below who presents to the ED from [facility] c/o persistent abdominal pain. Pt was recently admitted to [facility] from 02/22-02/27 for abdominal pain and worsening SOB. Pt was found to have pancreatic mass on abdominal US highly suspicious for malignancy. ERCP was completed 02/26 with biopsy and biliary stent placement. Biopsy was + for poorly differentiated adenocarcinoma. Pt was also found to have bilat PEs. He was discharged on Lovenox injections. Pt reports that since discharge he has had persistent abd pain. He describes the pain as lower achy abdominal pain with intermittent sharp pains. Sxs are assoc with generalized weakness, nausea and dry heaving but no vomiting. Nothing seems to make the pain better or worse. He has been able to eat with no issues. Patient also mentions that he is still has significant SOB with exertion. He states he is out of breath after a few steps. Today, he was getting out of the shower and got very SOB and dizzy. Someone had to help him back to his bed as he felt like he was going to pass out. He believes he briefly lost consciousness while he was lying in bed but he did not hit his head. Pt was then transferred to the ED for further evaluation and treatment. Pt denies fever/chills, chest pain, vomiting, constipation, diarrhea , hematochezia, melena, bladder issues, LE edema or calf pain. In the ED, vitals are stable. Pt is afebrile with leukocytosis >11k. HgB 6.3. lactic acid 2.7. Na+ 132. glucose 288. d-dimer 3k. CXR is negative. Pt will be admitted for further evaluation and treatment. Past Medical/Surgical History Medical Problems: (1) Arthritis Status: Chronic (2) Diabetes mellitus, type II Status: Chronic (3) GERD (gastroesophageal reflux disease) Status: Chronic (4) History of pulmonary embolus (PE) Status: Chronic (5) HTN (hypertension) Status: Chronic (6) Pancreatic adenocarcinoma Status: Chronic Surgical Problems: (1) History of liver excision Permanent Comment: during cholecystectomy Status: Resolved (2) S/P cholecystectomy Status: Resolved Family History Patient reports no known family medical history. Social History Smoking Status: Former Smoker (60 pack year history; quit 02/23/16) Alcohol Use: none Drug Use: none Housing status: other (incarcerated) Multi-Drug Resistant Organisms History of MDRO: No Allergies Coded Allergies: Enalapril (Verified Allergy, Unknown, UNKNOWN, 02/23/16) Home Medications Scheduled Acetaminophen (Tylenol), 1,000 MG PO QID Amlodipine (Norvasc), 10 MG PO DAILY Ascorbic Acid (Vitamin C), 500 MG PO DAILY Aspirin (Aspirin EC Low Dose), 81 MG PO DAILY Enoxaparin (Lovenox), 80 MG SC BID Insulin Aspart (Novolog), 5 UNITS SC TID Insulin Glargine (Lantus), 10 UNITS SC QAM Metformin Hcl (Glucophage), 500 MG PO BID Omeprazole (Prilosec), 20 MG PO DAILY Pancrelipase (Lipase-Protease- (Pancreaze), 1 CAP PO WM Polyethylene Glycol 3350 (Bulk (Polyethylene Glycol 3350), 17 GM PO DAILY Tamsulosin HCl (Tamsulosin HCl), 0.4 MG PO DAILY Scheduled PRN Lactulose (Chronulac), 30 ML PO TID PRN for Constipation Review of Systems Constitutional: + fatigue, + fever, + weakness, No chills, No sweats Eyes: No worsening of vision ENT: No hearing loss Respiratory: + cough, + dyspnea on exertion, + shortness of breath, No dyspnea at rest, No hemoptysis Cardiovascular: No chest pain, No claudication, No edema, No palpitations Abdomen: + nausea, + pain, No GI bleeding, No constipation, No diarrhea, No vomiting Musculoskeletal: No calf pain, No swelling Genitourinary - Male: No dysuria, No hematuria Neurologic: + weakness Psychiatric: No depression symptoms Endocrine: + fatigue Hematologic / Lymphatic: No abnormal bleeding/bruising Integumentary: No new/changing skin lesions Physical Exam Vital Signs Date Time Temp Pulse Resp B/P Pulse Ox O2 Delivery O2 Flow Rate FiO2 03/03/16 19:19 64 20 129/72 100 Room Air 03/03/16 17:48 64 03/03/16 17:30 36.5 62 16 110/66 99 Room Air General Appearance: WD/WN, no apparent distress, + cachetic, + pertinent finding (Pt is laying in bed with guards at bedside ) Head: normocephalic, atraumatic Eyes: + pertinent finding (icteric) ENT: hearing grossly normal Neck: supple Respiratory/Chest: chest non-tender, lungs clear, normal breath sounds, no respiratory distress, + pertinent finding (no crackles or wheezes noted) Cardiovascular: regular rate, rhythm, no edema, no murmur Abdomen/GI: normal bowel sounds, soft, + tenderness (diffuse; worse RLQ) Back: normal inspection Extremities/Musculoskelatal: normal inspection, no calf tenderness, no pedal edema Neurologic/Psych: alert, normal mood/affect, oriented x 3 Skin: normal color, warm/dry Diagnostics Laboratory Results Results Past 24 Hours Test 03/03/16 17:55 Range/Units White Blood Count 11.44 4.8-10.8 K/uL Red Blood Count 2.69 4.7-6.1 M/uL Hemoglobin 6.3 14.0-18.0 g/dL Hematocrit 19.9 42-52 % Mean Corpuscular Volume 74.0 80-100 fL Mean Corpuscular Hemoglobin 23.4 25-34 pg Mean Corpuscular Hemoglobin Concent 31.7 32-36 g/dl Platelet Count 347 130-400 K/uL Mean Platelet Volume 11.3 7.4-10.4 fL Neutrophils (%) (Auto) 78.9 % Lymphocytes (%) (Auto) 6.5 % Monocytes (%) (Auto) 12.2 % Eosinophils (%) (Auto) 0.4 % Basophils (%) (Auto) 0.2 % Neutrophils # (Auto) 9.03 1.4-6.5 K/uL Lymphocytes # (Auto) 0.74 1.2-3.4 K/uL Monocytes # (Auto) 1.39 0.11-0.59 K/uL Eosinophils # (Auto) 0.05 0-0.5 K/uL Basophils # (Auto) 0.02 0-0.2 K/uL RDW Standard Deviation 52.9 36.4-46.3 fL RDW Coefficient of Variation 20.3 11.5-14.5 % Immature Granulocyte % (Auto) 1.8 % Immature Granulocyte # (Auto) 0.21 0.00-0.02 K/uL Polychromasia 1+ Hypochromasia PRESENT Target Cells 2+ Schistocytes 1+ Prothrombin Time 11.7 9.0-12.0 SECONDS Prothromb Time International Ratio 1.1 0.9-1.1 Activated Partial Thromboplast Time 27.6 21.0-31.0 SECONDS Partial Thromboplastin Ratio 1.1 D-Dimer 3000 0-500 ug/L FEU Sodium Level 132 136-145 mmol/L Potassium Level 4.3 3.5-5.1 mmol/L Chloride Level 100 98-107 mmol/L Carbon Dioxide Level 23 21-32 mmol/L Anion Gap 9.0 3-11 mmol/L Blood Urea Nitrogen 20 7-18 mg/dl Creatinine 1.20 0.60-1.40 mg/dl Est Creatinine Clear Calc Drug Dose 55.9 ml/min Estimated GFR () 69.1 Estimated GFR (Non- 59.6 BUN/Creatinine Ratio 16.4 10-20 Random Glucose 288 70-99 mg/dl Lactic Acid Level 2.7 0.4-2.0 mmol/L Calcium Level 8.6 8.5-10.1 mg/dl Total Bilirubin 5.1 0.2-1 mg/dl Direct Bilirubin 4.6 0-0.2 mg/dl Aspartate Amino Transf (AST/SGOT) 23 15-37 U/L Alanine Aminotransferase (ALT/SGPT) 41 12-78 U/L Alkaline Phosphatase 404 45-117 U/L Troponin I < 0.015 0-0.045 ng/ml Total Protein 6.6 6.4-8.2 gm/dl Albumin 2.2 3.4-5.0 gm/dl Lipase 35 73-393 U/L Diagnostic Radiology CXR IMPRESSION: No acute process. EKG EKG: sinus rhythm at 57 bpm with sinus arrhythmia and nonspec T wave abnormality ; escape complexes are no longer present when compared with EKG from 02/26/16 Impression Assessment and Plan ANEMIA R/O GI BLEED pt presents with generalized weakness, worsening SOB and possible syncopal episode -admit to telemetry -RFs include anticoagulation use; no NSAID use -colonoscopy 01/2016 WNL -FOBT is negative in ED -Hgb currently 6.3 (8.1 02/28/16); will continue to monitor with H&H q 8h -transfuse 2 units PRBCs now and continue to transfuse PRN HgB <8 -start IVF and Protonix -check CT chest/abd/pelvis to eval for any intra-abdominal bleed -hold ASA and Lovenox -pt appears to be hemodynamically stable -continue to monitor closely EXERTIONAL SOB -likely secondary to combination anemia and recent PEs -CXR is negative -cont O2 supplementation -PT/OT ABDOMINAL PAIN -likely secondary to pancreatic carcinoma -check CT abd/pelvis -morphine PRN pain RECENTLY DIAGNOSED BILATERAL PE -bilat PE on CT chest 02/24/16 -hold ASA and Lovenox for now METASTATIC PANCREATIC ADENOCARCINOMA -diagnosed this month -s/p biliary stent placement 02/27/16 -cont pancreatic enzymes -not following with hem/onc INSULIN-DEPENDENT DM 2 -recent A1C 9.6 -hold metformin -cont Lantus and start ISS -monitor BSG AC HS GERD -cont PPI HTN -stable -cont Norvasc -monitor DVT PROPHYLAXIS -SCDs only in setting of possible GI bleed CODE STATUS -FULL CODE status per discussion with patient upon admission DISPO -Discharge and PT/OT eval placed -Pt seen in collaboration with Dr Saravia. Please see his addendum for further details. Thanks! Patient is a 75 Yr old male who was recently diagnosed to have metastatic pancreatic adenocarcinoma S/P biliary stent placement, PE on lovenox and aspirin and other comorbidities presents with persistent diffuse abdominal pain since the procedure, SOB on exertion, generalized tiredness, dizziness, presyncope and nausea for further eval and treatment. He was found to have Hb of 6.3, uncontrolled glucose levels and mild leukocytosis and lactic acid of 2.7 and elevated d-dimer. He denies any history of blood in stools or any other source of bleeding but noticed tea colored urine. Physical Exam: Vitals signs as noted above General: Chronically ill appearing, cachetic, no distress HEENT: NC/AT, EOMI, PERRLA, +Icteric Neck: Supple, No JVD CVS: S1, S2, No murmur Resp: CTA, no accessory muscle use, Normal breath sounds Abd: Soft, Mild tender diffusely, BS present, no guarding/rigidity [employer]: No focal deficits Ext: No cyanosis, clubbing, edema Skin: Warm, Intact Assessment and Plan: Symptomatic Anemia/Abdominal pain: Unclear source of bleeding H/O metastatic Pancreatic adenocarcinoma On Aspirin and Lovenox at home for PE Will get CT Abd/Chest Transfuse PRBC, Monitor H&H Check FOBT, check UA Colonoscopy in Jan 2016: wnl Hold Aspirin, Lovenox IV fluids, Protonix Pain control Lactic acid elevated likely secondary to malignancy Recent Bilateral PE: Elevated d-dimer Hold lovenox for now Saturating well on RA Denies any chest pain Uncontrolled DM II: Last A1C 9.6 ISS, Lantus DVT Px: SCDs Agree with assessment and plan of Kayli Alejandro PA-C as above. VTE Prophylaxis VTE Risk Assessment Done? Y/N: Yes Risk Level: High
[2016-03-03] MEDS ORDERED: PHARMACY GLYCEMIC MGMT CONSULT PRN (21:15)
[2016-03-03] MEDS ORDERED: MoRPHine SULFATE 2 MG/ML CARP IV PRN (21:15)
--- NOTE | 2016-03-03 21:28 | DIAGNOSTIC IMAGING REPORT ---
CHEST CT WITH CONTRAST CT DOSE: HISTORY: Near syncope. TECHNIQUE: Multiaxial CT images of the chest were performed following the intravenous administration of contrast. COMPARISON: Chest CTA 02/24/2016. FINDINGS: No evidence for an aortic dissection. No pleural or pericardial effusions. Multiple bilateral segmental and subsegmental pulmonary emboli are again noted. A right middle lobe segmental pulmonary embolus has increased in size. Remaining pulmonary emboli are not significantly changed. No hilar lymphadenopathy. No suspicious lytic or blastic osseous lesions. No pneumothorax. Emphysema. Small amount of mucoid material within the distal trachea. Stable 2 mm subpleural nodule within the left upper lobe on image 118. There is also a 3 nodule within the left lower lobe on image 279. This remains unchanged. There is a new 4 mm nodule within the right lower lobe on image 260. A 5 mm subpleural nodule within the right middle lobe on image 260. This is slightly increased in size. There are few new scattered nodules seen within the lower lung zones. These were not present on the study performed 8 days earlier and therefore likely represent small foci of inflammatory/infectious change. There is again suggestion of a 1 cm tissue nodule abutting the anterior pericardium. This is best in image 245. IMPRESSION: 1. Slight progression of the pulmonary emboli. 2. Emphysema. 3. A few new tiny nodules within the bilateral lower lung zones. Given the recent change this favors small foci of inflammatory/infectious change. 4. A 1 cm soft tissue nodule abutting the anterior pericardium. Electronically signed by: Ed Lorenz M.D. 03/03/2016 9:26 PM Dictated Date/Time: 03/03/2016 9:15 PM
[2016-03-03] MEDS ORDERED: SODIUM CHLORIDE 0.9% 1000ML 1,000 ML IV SCH (21:30)
--- NOTE | 2016-03-03 21:41 | DIAGNOSTIC IMAGING REPORT ---
ABDOMEN AND PELVIS CT WITH IV CONTRAST CT DOSE: 484.57 mGy.cm HISTORY: Generalized abdominal pain. r/o intra-abdominal bleed TECHNIQUE: Multiaxial CT images of the abdomen and pelvis were performed following the use of intravenous contrast. COMPARISON STUDY: Abdomen and pelvis CT 02/24/2016. FINDINGS: No pneumoperitoneum. No pneumatosis. No suspicious lytic or blastic osseous lesions. Small foci of gas within and anterior to the rectus abdominus muscles which may be due to recent medication injection. Diffuse body wall edema. No intra-abdominal or retroperitoneal hemorrhage. Interval placement of a common bile duct stent which appears to be in good position. This results in the pneumobilia and decompression of the dilated bile ducts. The 5 cm heterogeneous pancreatic head mass is again noted. There is severe dilatation of the main pancreatic duct with associated calcifications. This remains unchanged. Multiple hepatic metastatic lesions which are better appreciated on this contrast-enhanced study. The dominant lesion in the liver measures 2.1 cm. Multiple bilateral renal hypodense lesions consistent with cysts. No hydronephrosis. The adrenal glands are unremarkable. The bladder is unremarkable. No evidence for bowel obstruction. Multiple fluid-filled loops of small bowel seen throughout the abdomen. Large amount well-formed stool seen throughout the colon and rectum. Mild narrowing at the portal splenic confluence likely due to the partially encasing mass. Questionable focal filling defect within the portal vein on image 103. This measures 1.3 cm. This may represent extrinsic compression from the distended bile duct rather than thrombus. Peripancreatic lymphadenopathy is again noted. IMPRESSION: 1. Redemonstration of the large pancreatic head mass and multiple hepatic metastatic lesions. 2. Interval placement of a common bile duct stent which appears to be in good position. This results in partial decompression of the dilated intrahepatic bile ducts and pneumobilia. 3. Question of a focal filling defect within the portal vein measuring 1.3 cm. However, this favors a extrinsic compression from the adjacent dilated bile duct rather than thrombus. Follow-up duplex ultrasound can be performed for confirmation if clinically warranted. 4. Multiple fluid-filled loops of small bowel seen throughout the abdomen. However, no evidence for bowel obstruction. 5. Large amount well-formed stool seen throughout the colon rectum. Electronically signed by: Ed Lorenz M.D. 03/03/2016 9:39 PM Dictated Date/Time: 03/03/2016 9:27 PM
[2016-03-03] MEDS ORDERED: PANTOprazole INJ 40 MG in SYRINGE 0 ML IV ONE (22:30)
[2016-03-03 23:11] VITALS: BP 125/68; PULSE 58; TEMP 36.5; O2SAT 100
[2016-03-03 23:26] VITALS: BP 132/74; PULSE 66; TEMP 36.5; O2SAT 99
[2016-03-03] MEDS: INSULIN ASPART 100 UNITS/ML 3 ML PEN SC SCH (23:34)
[2016-03-03 23:56] VITALS: BP 143/70; PULSE 66; TEMP 36.8; O2SAT 100
[2016-03-04] VITALS (24 sets, daily range): BP systolic 130–159; BP diastolic 68–89; PULSE 48–79; TEMP 36.4–37.1; O2SAT 95–100
[2016-03-04] MEDS ORDERED: SODIUM CHLORIDE 0.9% 1000ML 1,000 ML IV SCH (01:30)
[2016-03-04] MEDS ORDERED: INSULIN ASPART 100 UNITS/ML 3 ML PEN SC SCH (02:00)
[2016-03-04 03:12] LABS: HEMATOCRIT 19.5 % (42-52); MEAN CELL VOLUME 76.8 fL (80-100); MEAN CORPUSCULAR HEMOGLOBIN 24.4 pg (25-34); MEAN CORPUSCULAR HGB CONC 31.8 g/dl (32-36); MEAN PLATELET VOLUME 9.7 fL (7.4-10.4); PLATELET COUNT 290 K/uL (130-400); RED BLOOD COUNT 2.54 M/uL (4.7-6.1); WHITE BLOOD COUNT 12.48 K/uL (4.8-10.8)
[2016-03-04 03:19] LABS: BUN/CREATININE RATIO 17.1 (10-20); CALCIUM 8.2 mg/dl (8.5-10.1); CREATININE 0.95 mg/dl (0.60-1.40); POTASSIUM 4.2 mmol/L (3.5-5.1)
[2016-03-04 06:43] LABS: URINE APPEARANCE CLEAR (CLEAR); URINE COLOR DK YELLOW; URINE NITRITE NEG (NEG); URINE SPECIFIC GRAVITY 1.041 (1.000-1.030); UROBILINOGEN POS (NEG); ZZUR CULT IF INDIC CLEAN CATCH NO
[2016-03-04 06:44] LABS: MANUAL MICROSCOPIC REQUIRED? NO; REVIEW REQ? NO; URINE BILIRUBIN 1+ (NEG)
[2016-03-04] MEDS: INSULIN ASPART 100 UNITS/ML 3 ML PEN SC SCH ×4 (07:00→21:40)
[2016-03-04] MEDS: PANCREAZE (LIPASE 10,500U) CAP PO SCH ×3 (07:35→16:28)
[2016-03-04] MEDS: POLYETHYLENE (MIRALAX) 17 GM PACK PO SCH (07:35)
[2016-03-04] MEDS: AMLODIPINE BESYLATE 5 MG TAB PO SCH (07:35)
[2016-03-04] MEDS: ASCORBIC ACID 500 MG TAB PO SCH (07:35)
[2016-03-04] MEDS: TAMSULOSIN HCL 0.4 MG CAP PO SCH (07:36)
[2016-03-04] MEDS: SODIUM CHLORIDE 0.9% 1000ML 1,000 ML IV SCH ×2 (07:41→17:24)
[2016-03-04] MEDS ORDERED: INSULIN GLARGINE SOLOSTAR 100 UNITS/ML 3 ML PEN SC SCH (09:00)
[2016-03-04] MEDS ORDERED: NON-FORMULARY MEDICATION (Omeprazole (Prilosec) 20 MG) PO SCH (09:00)
[2016-03-04] MEDS ORDERED: FUROSEMIDE INJ 20 MG in SYRINGE 0 ML IV SCH (11:00)
[2016-03-04] MEDS ORDERED: ACETAMINOPHEN 325 MG TAB PO SCH (11:00)
[2016-03-04] MEDS ORDERED: PANTOprazole INJ 40 MG in SYRINGE 0 ML IV SCH (11:00)
[2016-03-04] MEDS ORDERED: POLYETHYLENE (MIRALAX) 17 GM PACK PO SCH (12:00)
[2016-03-04] MEDS ORDERED: SOD PHOSPHATE/SOD BIPHOSPHATE ENEMA 132 ML BTL PR SCH (12:00)
--- NOTE | 2016-03-04 13:01 | Gastrointestinal Consultation ---
Gastrointestinal Consultation Date of Consultation: Mar 04, 2016 Attending Physician: Jimenez Vences Consulting Physician: Francesco Zarco Reason for Consultation: Anemia; pancreatic ca History of Present Illness Patient is a 75 year old male inmate of [facility] who was recently diagnosed w metastatic pancreas head adenocarcinoma, s/p ERCP w biliary stent placement for biliary obstruction, bilateral PEs on Lovenox who was brought back to hospital for symptoms of generalized abd pain, nausea w/o vomiting, dyspnea w exertion. On eval he was noted to be anemic w Hgb 6.2, previously was 9. He has 2U PRBC transfusion ordered. His CXR showed no acute processes. CT chest showed persistent PEs, and emphysema. CT abd/pelvis again demonstrated pancreas ca w likely liver mets, + liquid in bowels and large amt of stool in rectum area. His biliary stent appears to be in good position; LFTs continue to trend down since s/p ERCP. Other than abd pain, nausea w/o vomiting as noted above, pt denies any dark, tarry stools. He in fact had negative heme stools in ED. He did move his bowels yesterday, said mostly loose stools. Appetite seem fair, wanted food this AM. His SOB is improved today, denies any CP, dizziness. He mentioned having a colonoscopy done at [facility] last month which was normal. Never had EGD eval in the past. Past Medical/Surgical History Medical Problems: (1) Hyperglycemia Status: Acute (2) Symptomatic anemia Status: Acute Past Medical History: DMII GERD Past Surgical History: ? liver bx vs excision during prior cholecystectomy Family History Patient reports no known family medical history. Social History Smoking Status: Former Smoker (60 pack year history; quit 02/23/16) Alcohol Use: other Drug Use: none Housing Status: other ([facility]) Allergies Coded Allergies: Enalapril (Verified Allergy, Unknown, UNKNOWN, 02/23/16) Current Medications Home Meds and Scripts Medications Dose Route/Sig Max Daily Dose Days Date Category Dose Instructions Novolog (Insulin Aspart) 100 Units/Ml Inj 5 Units SC TID 03/03/16 Reported Norvasc (Amlodipine Besylate) 10 Mg Tab 10 Mg PO DAILY 03/03/16 Reported Chronulac (Lactulose) 10 Gm/15 Ml Syrp 30 Ml PO TID PRN 03/03/16 Reported Polyethylene Glycol 3350 (Polyethylene Glycol 3350 (Bulk) 1 Pow Pow 17 Gm PO DAILY 03/03/16 Reported MIX WITH WATER AND DRINK ONCE A DAY Pancreaze (Pancrelipase (Lipase-Protease-) 1 Cap Cap 1 Cap PO WM 03/03/16 Reported 21003 UNIT CAP Glucophage (Metformin Hcl) 500 Mg Tab 500 Mg PO BID 03/03/16 Reported Lovenox (Enoxaparin Sodium) 80 Mg/0.8 Ml Inj 80 Mg SC BID 03/03/16 Reported Aspirin EC Low Dose (Aspirin) 81 Mg Ectab 81 Mg PO DAILY 03/03/16 Reported Tylenol (Acetaminophen) 500 Mg Tab 1,000 Mg PO QID 03/03/16 Reported Vitamin C (Ascorbic Acid) 500 Mg Tab 500 Mg PO DAILY 02/23/16 Reported Tamsulosin HCl 0.4 Mg Cap 0.4 Mg PO DAILY 02/23/16 Reported Prilosec (Omeprazole) 20 Mg Capcr 20 Mg PO DAILY 02/23/16 Reported Review of Systems Constitutional: + weakness, No chills, No fever Respiratory: + dyspnea on exertion, + shortness of breath, No cough Cardiac: No chest pain, No edema Abdomen: + diarrhea, + nausea, + pain (diffuse), No GI bleeding, No vomiting Physical Exam Date Time Temp Pulse Resp B/P Pulse Ox O2 Delivery O2 Flow Rate FiO2 03/04/16 12:10 37.1 63 18 157/72 99 03/04/16 11:34 36.9 48 18 139/77 99 03/04/16 11:14 36.5 73 18 156/72 98 03/04/16 11:05 36.5 48 20 134/69 99 Room Air 03/04/16 07:44 36.7 61 16 130/78 100 Room Air 03/04/16 05:51 36.6 64 17 142/80 95 03/04/16 05:21 36.8 66 16 149/72 100 03/04/16 04:47 36.8 56 17 145/77 100 03/04/16 04:17 36.8 56 16 137/72 100 03/04/16 04:02 36.8 56 16 130/77 100 03/04/16 04:00 100 Room Air 03/04/16 01:56 36.8 51 16 130/77 100 03/04/16 01:00 36.8 55 18 130/68 99 03/04/16 00:30 36.8 79 16 149/73 100 03/04/16 00:00 100 Room Air 03/03/16 23:56 36.8 66 17 143/70 100 03/03/16 23:26 36.5 66 16 132/74 99 03/03/16 23:11 36.5 58 14 125/68 100 03/03/16 21:00 36.7 61 20 158/60 100 Room Air 03/03/16 20:49 66 20 133/75 98 Room Air 03/03/16 19:19 64 20 129/72 100 Room Air 03/03/16 17:48 64 03/03/16 17:30 36.5 62 16 110/66 99 Room Air General Appearance: no apparent distress, + thin Neck: supple, no JVD, trachea midline Respiratory/Chest: lungs clear, normal breath sounds, no respiratory distress, no accessory muscle use Cardiovascular: regular rate, rhythm, no gallop, no murmur Abdomen: normal bowel sounds, non tender, soft Extremities: normal inspection, no pedal edema, no calf tenderness Neurologic/Psych: alert, normal mood/affect, oriented x 3 Skin: normal color, no jaundice, no rash Laboratory Results Last 24 Hours Test 03/03/16 17:55 03/03/16 21:21 03/03/16 22:04 03/04/16 00:00 White Blood Count 11.44 K/uL Red Blood Count 2.69 M/uL Hemoglobin 6.3 g/dL Hematocrit 19.9 % Mean Corpuscular Volume 74.0 fL Mean Corpuscular Hemoglobin 23.4 pg Mean Corpuscular Hemoglobin Concent 31.7 g/dl Platelet Count 347 K/uL Mean Platelet Volume 11.3 fL Neutrophils (%) (Auto) 78.9 % Lymphocytes (%) (Auto) 6.5 % Monocytes (%) (Auto) 12.2 % Eosinophils (%) (Auto) 0.4 % Basophils (%) (Auto) 0.2 % Neutrophils # (Auto) 9.03 K/uL Lymphocytes # (Auto) 0.74 K/uL Monocytes # (Auto) 1.39 K/uL Eosinophils # (Auto) 0.05 K/uL Basophils # (Auto) 0.02 K/uL RDW Standard Deviation 52.9 fL RDW Coefficient of Variation 20.3 % Immature Granulocyte % (Auto) 1.8 % Immature Granulocyte # (Auto) 0.21 K/uL Polychromasia 1+ Hypochromasia PRESENT Target Cells 2+ Schistocytes 1+ Peripheral Blood Smear Path Consult Absolute Reticulocyte Count 0.10 10^6/uL Percent Reticulocyte Count 3.7 % Prothrombin Time 11.7 SECONDS Prothromb Time International Ratio 1.1 Activated Partial Thromboplast Time 27.6 SECONDS Partial Thromboplastin Ratio 1.1 D-Dimer 3000 ug/L FEU Sodium Level 132 mmol/L Potassium Level 4.3 mmol/L Chloride Level 100 mmol/L Carbon Dioxide Level 23 mmol/L Anion Gap 9.0 mmol/L Blood Urea Nitrogen 20 mg/dl Creatinine 1.20 mg/dl Est Creatinine Clear Calc Drug Dose 55.9 ml/min Estimated GFR () 69.1 Estimated GFR (Non- 59.6 BUN/Creatinine Ratio 16.4 Random Glucose 288 mg/dl Lactic Acid Level 2.7 mmol/L 3.3 mmol/L Calcium Level 8.6 mg/dl Total Bilirubin 5.1 mg/dl Direct Bilirubin 4.6 mg/dl Aspartate Amino Transf (AST/SGOT) 23 U/L Alanine Aminotransferase (ALT/SGPT) 41 U/L Alkaline Phosphatase 404 U/L Troponin I < 0.015 ng/ml Total Protein 6.6 gm/dl Albumin 2.2 gm/dl Lipase 35 U/L Bedside Glucose 207 mg/dl Urine Color DK YELLOW Urine Appearance CLEAR Urine pH 5.0 Urine Specific [place] 1.041 Urine Protein NEG Urine Glucose (UA) 1+ Urine Ketones NEG Urine Occult Blood NEG Urine Nitrite NEG Urine Bilirubin 1+ Urine Urobilinogen POS Urine Leukocyte Esterase NEG Test 03/04/16 02:04 03/04/16 02:43 03/04/16 06:58 03/04/16 11:02 Bedside Glucose 181 mg/dl 138 mg/dl 193 mg/dl White Blood Count 12.48 K/uL Red Blood Count 2.54 M/uL Hemoglobin 6.2 g/dL Hematocrit 19.5 % Mean Corpuscular Volume 76.8 fL Mean Corpuscular Hemoglobin 24.4 pg Mean Corpuscular Hemoglobin Concent 31.8 g/dl RDW Standard Deviation 52.0 fL RDW Coefficient of Variation 18.8 % Platelet Count 290 K/uL Mean Platelet Volume 9.7 fL Sodium Level 134 mmol/L Potassium Level 4.2 mmol/L Chloride Level 102 mmol/L Carbon Dioxide Level 25 mmol/L Anion Gap 7.0 mmol/L Blood Urea Nitrogen 16 mg/dl Creatinine 0.95 mg/dl Est Creatinine Clear Calc Drug Dose 66.5 ml/min Estimated GFR () 91.7 Estimated GFR (Non- 79.1 BUN/Creatinine Ratio 17.1 Random Glucose 180 mg/dl Lactic Acid Level 0.9 mmol/L Calcium Level 8.2 mg/dl Test 03/04/16 11:40 Impression Patient is a 75 year old male w metastatic pancreas adenocarcinoma, biliary obstruction s/p ERCP placement of biliary stent who presented to ED w dyspnea on exertion and found to have worsening anemia. Hgb at baseline was 9, now down to 6.2. He does have bilateral PEs on Lovenox, now held. He did note diffuse abd pain, but none now. Also some nausea w/o vomiting, now hungry and wants food. Denies any dark tarry stools. Hemoccult was negative in ED. Plan - He reported Colonoscopy a month ago at [facility] (we do not have records to review). In light of negative hemoccult, no magaly s/s of GI bleed, and very low Hgb of 6 (would be considered as unstable for sedation) would defer endoscopic evals for now. Agree w transfusion, Heme/Onc consult and monitoring for now. - Will follow along. - Primary team will consult Vascular Surgery regarding possible filter placement for PEs so that continued anticoagulation use can be deferred in setting of anemia. I performed a history and physical examination of the patient. I have discussed the patient's case, impression and plan with NEGRA Rae. Her note reflects my findings and plan. Try to get outside records. No need for repeat endoscopy at this point. Follow H/H. Francesco Zarco MD
--- NOTE | 2016-03-04 15:31 | Pharmacy Progress Note ---
Glycemic Control Intl Consult Date of Service Mar 04, 2016. Scope Glycemic Pharmacist consulted by KELSEY Yost on 03/03/16 for glycemic control and to write orders per [facility] inpatient glycemic control protocol. Objective Weight (Kilograms): 70.200 Accuchecks BSG (last 24hrs): Test 03/03/16 17:55 03/03/16 21:21 03/04/16 02:04 03/04/16 02:43 Random Glucose 288 mg/dl (70-99) 180 mg/dl (70-99) Bedside Glucose 207 mg/dl (70-99) 181 mg/dl (70-99) Test 03/04/16 06:58 03/04/16 11:02 Bedside Glucose 138 mg/dl (70-99) 193 mg/dl (70-99) Laboratory Data (last 24hrs) Test 03/03/16 17:55 03/04/16 02:43 Anion Gap 9.0 mmol/L 7.0 mmol/L BUN/Creatinine Ratio 16.4 17.1 Blood Urea Nitrogen 20 mg/dl 16 mg/dl Creatinine 1.20 mg/dl 0.95 mg/dl Potassium Level 4.3 mmol/L 4.2 mmol/L Sodium Level 132 mmol/L 134 mmol/L White Blood Count 11.44 K/uL 12.48 K/uL Red Blood Count 2.69 M/uL Hemoglobin 6.3 g/dL Hematocrit 19.9 % Mean Corpuscular Volume 74.0 fL Mean Corpuscular Hemoglobin 23.4 pg Mean Corpuscular Hemoglobin Concent 31.7 g/dl Platelet Count 347 K/uL Mean Platelet Volume 11.3 fL Neutrophils (%) (Auto) 78.9 % Lymphocytes (%) (Auto) 6.5 % Monocytes (%) (Auto) 12.2 % Eosinophils (%) (Auto) 0.4 % Basophils (%) (Auto) 0.2 % Neutrophils # (Auto) 9.03 K/uL Lymphocytes # (Auto) 0.74 K/uL Monocytes # (Auto) 1.39 K/uL Eosinophils # (Auto) 0.05 K/uL Basophils # (Auto) 0.02 K/uL Recent Pertinent Medications Outpatient Anti-diabetic Regimen: * Lantus 10 units SQ QAM * Novolog 5 units SQ TID * Metformin 500mg PO BID * A1c = pending with tomorrow's AM labs Risk Factors for Insulin Resistance: * IVF: NSS @ 75mL/hr * Diet: NPO --> clear liquids Assessment & Plan ASSESSMENT: * ADA & AACE recommend a goal blood sugar range 140-180 mg/dl for the majority of critically ill & non-critically ill patients. However, more stringent targets may be selected in individual cases. * Patient is a 75yo diabetic male admitted with anemia. * HbA1c is ordered for tomorrow with AM labs to assess glycemic control as an outpatient. PLAN FOR INPATIENT GLYCEMIC CONTROL: * Holding outpatient oral diabetes medications * Continue outpatient dose of LANTUS 10 units SQ QAM * Correctional Insulin with NOVOLOG per scale ACHS * Goal Range: Low 120 mg/dL - High 160 mg/dL * Correction Factor: 30 mg/dL/unit * Nutritional / Prandial insulin per carb ratio of 1 unit per 12 grams CHO consumed * Please note that the plan above was derived based on current level of insulin resistance and hospital stress. These recommendations are appropriate for inpatient admission only. Plan of care upon discharge will need to be reassessed to avoid potential outpatient hypo/hyperglycemia. Thank you.
--- NOTE | 2016-03-04 15:58 | Surgery Consultation ---
Consultation Date of Service Mar 04, 2016. Chief Complaint PE, anemia, and pancreatic cancer. History of Present Illness The patient is a 75 year old male admitted with PE while on Lovenox. He has recently been diagnosed with pancreatic cancer. Hgb was markedly decreased at admission. He was sent to the ED due to SOB, dizziness, and light headedness. Denied chest pain or focal deficits. Vitals Vital Signs Past 12 Hours Date Time Temp Pulse Resp B/P Pulse Ox O2 Delivery O2 Flow Rate FiO2 03/04/16 15:41 36.6 59 20 146/88 100 03/04/16 14:57 36.6 57 18 159/89 95 03/04/16 14:20 36.6 65 18 155/83 100 03/04/16 14:06 36.4 75 20 159/77 100 03/04/16 13:17 36.5 58 18 132/73 98 03/04/16 12:10 37.1 63 18 157/72 99 03/04/16 12:00 99 Room Air 03/04/16 11:34 36.9 48 18 139/77 99 03/04/16 11:14 36.5 73 18 156/72 98 03/04/16 11:05 36.5 48 20 134/69 99 Room Air 03/04/16 07:44 36.7 61 16 130/78 100 Room Air 03/04/16 05:51 36.6 64 17 142/80 95 03/04/16 05:21 36.8 66 16 149/72 100 03/04/16 04:47 36.8 56 17 145/77 100 03/04/16 04:17 36.8 56 16 137/72 100 03/04/16 04:02 36.8 56 16 130/77 100 03/04/16 04:00 100 Room Air Allergies Coded Allergies: Enalapril (Verified Allergy, Unknown, UNKNOWN, 02/23/16) Home Medications Scheduled Acetaminophen (Tylenol), 1,000 MG PO QID Amlodipine (Norvasc), 10 MG PO DAILY Ascorbic Acid (Vitamin C), 500 MG PO DAILY Aspirin (Aspirin EC Low Dose), 81 MG PO DAILY Enoxaparin (Lovenox), 80 MG SC BID Insulin Aspart (Novolog), 5 UNITS SC TID Insulin Glargine (Lantus), 10 UNITS SC QAM Metformin Hcl (Glucophage), 500 MG PO BID Omeprazole (Prilosec), 20 MG PO DAILY Pancrelipase (Lipase-Protease- (Pancreaze), 1 CAP PO WM Polyethylene Glycol 3350 (Bulk (Polyethylene Glycol 3350), 17 GM PO DAILY Tamsulosin HCl (Tamsulosin HCl), 0.4 MG PO DAILY Scheduled PRN Lactulose (Chronulac), 30 ML PO TID PRN for Constipation Problem List Medical Problems: (1) Anemia (2) Arthritis (3) Diabetes mellitus, type II (4) GERD (gastroesophageal reflux disease) (5) History of pulmonary embolus (PE) (6) HTN (hypertension) (7) Pancreatic adenocarcinoma Surgical Problems: (1) History of liver excision (2) S/P cholecystectomy Surgical / Medical History Hx Cardiac Surgery: No Hx Abdominal Surgery: Yes Hx Cancer Surgery: No Hx Thoracic Surgery: No Hx Orthopedic: No Hx Urinary Tract Surgery: No HX Other Surgery: No Past Medical/Surgical History: Cancer, Hypertension, Pulmonary Emboli Family History Patient reports no known family medical history. Social History Smoking Status: Former Smoker (60 pack year history; quit 02/23/16) Hx Tobacco Use In Past Year?: Yes Hx Alcohol Use - Type & Amnt: No Hx Substance Use -Type & Amnt: No Review of Systems Constitutional: No chills, No diaphoresis, No fatigue, No fever, No malaise, No problem reported, No sweats, No weakness, No weight gain, No weight loss Respiratory: + short of breath Cardiovascular: No chest pain, No chest pressure, No chest tightness, No cyanosis, No diaphoresis, No edema, No intermittent claudication, No lightheadedness, No mumur, No orthopnea, No palpitations, No paroxysmal nocturnal dyspnea, No problem reported, No syncope Gastrointestinal: + abdominal pain Genitourinary - Male: No difficulty urinating, No hematuria, No impotence, No penile discharge, No penile itching, No problem reported, No rash, No testicular pain, No testicular swelling Musculoskeletal: No back pain, No gout, No joint pain, No joint swelling, No muscle pain, No muscle stiffness, No muscle weakness, No neck pain, No problem reported Neurologic: No LOC, No dizziness, No headache, No lethargy, No memory loss, No numbness, No paresthesia, No pre-existing deficit, No problem reported, No seizures, No tics, No tingling, No tremors, No vertigo, No weakness Psychiatric: No alcohol abuse, No anxiety, No auditory hallucinations, No depression, No drug abuse, No homicidal ideation, No mood changes, No problem reported, No suicidal ideation, No visual hallucinations Physical Exam Constitutional: General Apperance: cachectic Level of Distress: NAD Ambulation: ambulating normally Psychiatric: Mental Status: active & alert, normal mood, normal affect Orientation: oriented except where noted, to time, to place, to person Memory: recent memory normal, remote memory normal Neck: supple Lungs: Auscultation: breath sounds normal Cardiovascular: Heart Auscultation: RRR Peripheral Pulses: Radial Pulse: normal on the left, normal on the right Abdomen: Inspection & Palpation: soft Musculoskeletal: abnormal strength Extremities: Upper Right: no cyanosis, no edema, no varicosities, no palpable cord, no clubbing, no ulcers, no mottling Upper Left: no cyanosis, no edema, no palpable cord, no clubbing, no ulcers , no mottling Lower Right: no cyanosis, no edema, no varicosities, no palpable cord, no clubbing, no ulcers, no mottling Lower Left: no cyanosis, no edema, no varicosities, no palpable cord, no clubbing, no ulcers, no mottling Neurologic: Cranial Nerves: grossly intact Sensation: grossly intact Assessment and Plan Imp: PE while on Lovenox Pancreatic cancer Contraindication for anticoagulation Plan: In view of his PE while on Lovenox, the most likely source is the lower extremities. At this point he has failed Lovenox. He also is most likely hypercoagulable due to the pancreatic cancer. He is also not too ambulatory. I would therefore recommend an IVC filter. I have discussed the risks options and benefits of the procedure with the patient. The patient understands the risks options and benefits and agrees to the procedure. This will be done tomorrow. Thank you very much for letting me participate in the care of this patient.
[2016-03-04 16:48] LABS: HEMATOCRIT 28.3 % (42-52)
--- NOTE | 2016-03-04 18:18 | DIAGNOSTIC IMAGING REPORT ---
BILATERAL LOWER EXTREMITY VENOUS DOPPLER CLINICAL HISTORY: Anemia. Evaluate for deep venous thrombus. COMPARISON STUDY: No previous studies for comparison. TECHNIQUE: Sonography of the deep venous system of the bilateral lower extremities was performed. Compression and augmentation were evaluated. FINDINGS: The bilateral common femoral, superficial femoral and popliteal veins were compressible. Augmentation was normal. Flow was shown within the deep calf vessels. IMPRESSION: No evidence of deep venous thrombus within the bilateral lower extremities. Electronically signed by: Zheng Bennett M.D. 03/04/2016 6:16 PM Dictated Date/Time: 03/04/2016 6:15 PM
--- NOTE | 2016-03-04 19:37 | Progress Note ---
Internal Med Progress Note Date of Service: Mar 04, 2016. Provider Documentation: SUBJECTIVE: resting comfortably denies chest pain or sob afebrile wants to eat no abdominal pain OBJECTIVE: Vital Signs-as noted below Exam: General-alert and oriented ENT-normal hearing Neck-no neck masses Lungs-cta b/l no wheezing or crackles Heart-s1 and s2 heard regular rate and rhythm no murmurs Abdomen-soft bowel sounds present non tender no distension Extremities-no erythema no edema Neuro-alert and awake moves extremities Lab data as noted below. ASSESSMENT & PLAN: ANEMIA R/O GI BLEED Presented with generalized weakness, worsening SOB and possible syncopal episode Colonoscopy 01/2016 WNL FOBT is negative in ED patient on Lovenox for PE and CT chest/abd/pelvis no hematoma seen holding ASA and Lovenox on Protonix bid s/p 4units of prbc transfused so far appreciate GI inputs hb currently 9.3 EXERTIONAL SOB cxr negative stable now ABDOMINAL PAIN likely secondary to pancreatic carcinoma morphine PRN pain RECENTLY DIAGNOSED BILATERAL PE Bilateral PE on CT chest 02/24/16 holding ASA and Lovenox for now Lower extremity Doppler no DVT plan for ivc filter in am METASTATIC PANCREATIC ADENOCARCINOMA diagnosed this month s/p biliary stent placement 02/27/16 to cont pancreatic enzymes bilirubin levels coming down heme/onco consulted 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 holding metformin to cont Lantus and start ISS will monitor BSG AC HS GERD PPI HTN on Norvasc will monitor DVT PROPHYLAXIS SCDs only for now CODE STATUS FULL CODE status per discussion with patient upon admission Vital Signs: Date Time Temp Pulse Resp B/P Pulse Ox O2 Delivery O2 Flow Rate FiO2 03/04/16 16:00 100 Room Air 03/04/16 15:41 36.6 59 20 146/88 100 03/04/16 14:57 36.6 57 18 159/89 95 03/04/16 14:20 36.6 65 18 155/83 100 03/04/16 14:06 36.4 75 20 159/77 100 03/04/16 13:17 36.5 58 18 132/73 98 03/04/16 12:10 37.1 63 18 157/72 99 03/04/16 12:00 99 Room Air 03/04/16 11:34 36.9 48 18 139/77 99 03/04/16 11:14 36.5 73 18 156/72 98 03/04/16 11:05 36.5 48 20 134/69 99 Room Air 03/04/16 07:44 36.7 61 16 130/78 100 Room Air 03/04/16 05:51 36.6 64 17 142/80 95 03/04/16 05:21 36.8 66 16 149/72 100 03/04/16 04:47 36.8 56 17 145/77 100 03/04/16 04:17 36.8 56 16 137/72 100 03/04/16 04:02 36.8 56 16 130/77 100 03/04/16 04:00 100 Room Air 03/04/16 01:56 36.8 51 16 130/77 100 03/04/16 01:00 36.8 55 18 130/68 99 03/04/16 00:30 36.8 79 16 149/73 100 03/04/16 00:00 100 Room Air 03/03/16 23:56 36.8 66 17 143/70 100 03/03/16 23:26 36.5 66 16 132/74 99 03/03/16 23:11 36.5 58 14 125/68 100 03/03/16 21:00 36.7 61 20 158/60 100 Room Air 03/03/16 20:49 66 20 133/75 98 Room Air Lab Results: Results Past 24 Hours Test 03/03/16 21:21 03/03/16 22:04 03/04/16 00:00 03/04/16 02:04 Range/Units Bedside Glucose 207 181 70-99 mg/dl Lactic Acid Level 3.3 0.4-2.0 mmol/L Urine Color DK YELLOW Urine Appearance CLEAR CLEAR Urine pH 5.0 4.5-7.5 Urine Specific [place] 1.041 1.000-1.030 Urine Protein NEG NEG Urine Glucose (UA) 1+ NEG Urine Ketones NEG NEG Urine Occult Blood NEG NEG Urine Nitrite NEG NEG Urine Bilirubin 1+ NEG Urine Urobilinogen POS NEG Urine Leukocyte Esterase NEG NEG Test 03/04/16 02:43 03/04/16 06:58 03/04/16 11:02 03/04/16 11:40 Range/Units White Blood Count 12.48 4.8-10.8 K/uL Red Blood Count 2.54 4.7-6.1 M/uL Hemoglobin 6.2 14.0-18.0 g/dL Hematocrit 19.5 42-52 % Mean Corpuscular Volume 76.8 80-100 fL Mean Corpuscular Hemoglobin 24.4 25-34 pg Mean Corpuscular Hemoglobin Concent 31.8 32-36 g/dl RDW Standard Deviation 52.0 36.4-46.3 fL RDW Coefficient of Variation 18.8 11.5-14.5 % Platelet Count 290 130-400 K/uL Mean Platelet Volume 9.7 7.4-10.4 fL Sodium Level 134 136-145 mmol/L Potassium Level 4.2 3.5-5.1 mmol/L Chloride Level 102 98-107 mmol/L Carbon Dioxide Level 25 21-32 mmol/L Anion Gap 7.0 3-11 mmol/L Blood Urea Nitrogen 16 7-18 mg/dl Creatinine 0.95 0.60-1.40 mg/dl Est Creatinine Clear Calc Drug Dose 66.5 ml/min Estimated GFR () 91.7 Estimated GFR (Non- 79.1 BUN/Creatinine Ratio 17.1 10-20 Random Glucose 180 70-99 mg/dl Lactic Acid Level 0.9 0.4-2.0 mmol/L Calcium Level 8.2 8.5-10.1 mg/dl Bedside Glucose 138 193 70-99 mg/dl Lactate Dehydrogenase 186 87-241 U/L Test 03/04/16 16:22 03/04/16 16:39 Range/Units Hemoglobin 9.3 14.0-18.0 g/dL Hematocrit 28.3 42-52 % Bedside Glucose 244 70-99 mg/dl
[2016-03-04 20:40] LABS: HEMATOCRIT 27.8 % (42-52)
--- NOTE | 2016-03-04 20:52 | Medical Consult ---
Consultation Date of Consultation: Mar 04, 2016. Attending Physician: Jimenez Vences MD Reason for Consultation: pancreatic cancer anemia PE History of Present Illness 75 year old male with recently diagnosed stage IV pancreatic adenocarcinoma with liver metastases, s/p ERCP with biliary stent placement for biliary obstruction. Patient underwent ERCP on 02/27/16 and pathology from biliary tree, endoscopic brushing was positive for malignant cells adenocarcinoma. He had Chest CTA on 02/24/16 for shortness of breath and was found to have bilateral PE, trace right pleural effusion and emphysema and pancreatic mass as well as severe biliary and pancreatic duct dilatation, and possible 12mm soft tissue nodule abutting the anterior pericardium. He was put on lovenox. He was sent to ER for shortness of breath and dizziness/LH and was found to have profound anemia with hemoglobin 6.2 He has received 4 units of PRBCs. He denies any melena or hematochezia or hematemesis or any bleeding symptoms. He had a CTA which showed slight progression of the PE, emphysema, few tiny nodules within the bilateral lower lung zones and a 1cm soft tissue nodule abutting anterior pericardium CT scan of the abdomen showed large pancreatic head mass and multiple hepatic metastases and CBD stent in good position, ?filling defect in portal vein, favors extrinsic compression from the adjacent dilated bile duct rather than thrombus, multiple fluid filled loops of small bowel but no evidence of bowel obstruction, and large amount of stool throughout colon and rectum He still has hyperbilirubinemia +nausea no vomiting Past Medical/Surgical History PMH: hypertension, diabetes type 2 arthritis, bilateral PE, GERD, anemia PSH: s/p cholecystectomy, liver excision Medical Problems: (1) Hyperglycemia Status: Acute (2) Symptomatic anemia Status: Acute Family History Patient reports no known family medical history. Social History Smoking Status: Former Smoker (60 pack year history; quit 02/23/16) Alcohol Use: none Drug Use: none Housing Status: other ([facility]) Allergies Coded Allergies: Enalapril (Verified Allergy, Unknown, UNKNOWN, 02/23/16) Current Inpatient Medications Current Inpatient Medications Medications (Trade) Dose Ordered Sig/Renuka Route Start Time Stop Time Status Last Admin Dose Admin Acetaminophen (Tylenol Tab) 650 mg Q4H PRN PO 03/03/16 20:00 04/02/16 19:59 Ondansetron HCl (Zofran Inj) 4 mg Q6H PRN IV 1/18/17 20:00 04/02/16 19:59 Nitroglycerin (Nitrostat Tab) 0.4 mg UD PRN SL 03/03/16 20:00 04/02/16 19:59 Amlodipine Besylate (Norvasc Tab) 10 mg DAILY PO 03/04/16 09:00 04/03/16 08:59 03/04/16 07:35 10 MG Ascorbic Acid (Vitamin C Tab) 500 mg DAILY PO 03/04/16 09:00 04/03/16 08:59 03/04/16 07:35 500 MG Amylase/Lipase/ Protease (Pancreaze (Lipase 10,500U) Cap) 1 cap AC PO 03/04/16 07:00 04/03/16 07:59 03/04/16 16:28 1 CAP Tamsulosin HCl (Flomax Cap) 0.4 mg DAILY PO 03/04/16 09:00 04/03/16 08:59 03/04/16 07:36 0.4 MG Polyethylene (Miralax Powder Packet) 17 gm QAM PO 03/04/16 09:00 04/03/16 08:59 03/04/16 07:35 17 GM Insulin Aspart (novoLOG ASPART) SLIDING SCALE If C... ACHS SC 03/03/16 22:30 04/02/16 22:29 03/04/16 17:23 7 UNITS Glucose (Glucose 40% Gel) 15-30 GRAMS 15 GRAMS... UD PRN PO 03/03/16 20:15 04/02/16 20:14 Glucose (Glucose Chew Tab) 4-8 Tablets 4 Tabl... UD PRN PO 03/03/16 20:15 04/02/16 20:14 Dextrose (Dextrose 50% 50ML Syringe) 25-50ML OF 50% DW IV FOR... UD PRN IV 03/03/16 20:15 04/02/16 20:14 Glucagon (Glucagon Inj) 1 mg UD PRN SQ 03/03/16 20:15 04/02/16 20:14 Miscellaneous Information (Consult Glycemic Management Pharmacy) 1 ea UD PRN N/A 03/03/16 21:15 04/02/16 21:14 Ioversol (Optiray 320) 111 ml UD PRN IV 03/03/16 20:30 03/07/16 20:29 Morphine Sulfate 2 mg 2 mg Q6H PRN IV 03/03/16 21:15 03/17/16 21:14 Sodium Chloride (Nss 1000ml) 1,000 ml @ 75 mls/hr [id number] IV 03/04/16 03:30 04/03/16 03:29 03/04/16 17:24 75 MLS/HR Acetaminophen (Tylenol Tab) 650 mg TODAY@1100 PO 03/04/16 11:00 03/04/16 23:59 03/04/16 10:58 650 MG Diphenhydramine HCl 25 mg 25 mg TODAY@1100 PO 03/04/16 11:00 03/04/16 23:59 03/04/16 10:58 25 MG Furosemide 20 mg/ Syringe 2 ml @ 4 mls/min TODAY@1100 IV 03/04/16 11:00 03/04/16 23:59 03/04/16 13:21 4 MLS/MIN Pantoprazole Sodium/Syringe (Protonix Inj/ Syringe) 10 ml @ 40 mls/min BID IV 03/04/16 21:00 04/03/16 20:59 Insulin Glargine 10 unit 10 unit DAILY SC 03/05/16 09:00 04/04/16 08:59 Cefazolin Sodium (Ancef 1000mg/55 ml D5W) 55 ml @ 100 mls/hr PREOP IV 03/05/16 06:00 03/06/16 05:59 Review of Systems Constitutional: + fatigue, + weakness (generalized), + weight loss, No chills, No fever, No sweats ENT: No sore throat, No unusual epistaxis Respiratory: + dyspnea on exertion, No cough, No sputum, No wheezing Cardiovascular: No chest pain, No edema, No palpitations Abdomen: + nausea, + pain, No GI bleeding, No diarrhea, No vomiting Musculoskeletal: No joint pain Genitourinary - Male: No dysuria, No hematuria Endocrine: + fatigue Hematologic / Lymphatic: No abnormal bleeding/bruising Integumentary: No rash Physical Exam Date Time Temp Pulse Resp B/P Pulse Ox O2 Delivery O2 Flow Rate FiO2 03/04/16 16:00 100 Room Air 03/04/16 15:41 36.6 59 20 146/88 100 03/04/16 14:57 36.6 57 18 159/89 95 03/04/16 14:20 36.6 65 18 155/83 100 03/04/16 14:06 36.4 75 20 159/77 100 03/04/16 13:17 36.5 58 18 132/73 98 03/04/16 12:10 37.1 63 18 157/72 99 03/04/16 12:00 99 Room Air 03/04/16 11:34 36.9 48 18 139/77 99 03/04/16 11:14 36.5 73 18 156/72 98 03/04/16 11:05 36.5 48 20 134/69 99 Room Air 03/04/16 07:44 36.7 61 16 130/78 100 Room Air 03/04/16 05:51 36.6 64 17 142/80 95 03/04/16 05:21 36.8 66 16 149/72 100 03/04/16 04:47 36.8 56 17 145/77 100 03/04/16 04:17 36.8 56 16 137/72 100 03/04/16 04:02 36.8 56 16 130/77 100 03/04/16 04:00 100 Room Air 03/04/16 01:56 36.8 51 16 130/77 100 03/04/16 01:00 36.8 55 18 130/68 99 03/04/16 00:30 36.8 79 16 149/73 100 03/04/16 00:00 100 Room Air 03/03/16 23:56 36.8 66 17 143/70 100 03/03/16 23:26 36.5 66 16 132/74 99 03/03/16 23:11 36.5 58 14 125/68 100 03/03/16 21:00 36.7 61 20 158/60 100 Room Air 03/03/16 20:49 66 20 133/75 98 Room Air General Appearance: no apparent distress, + cachetic, + thin, + pertinent finding (chronically ill appearing) Head: normocephalic, atraumatic Eyes: + pertinent finding (+scleral icterus) ENT: + pertinent finding (moist buccal mucosa, erythema or exudate) Neck: supple Respiratory/Chest: chest non-tender, lungs clear, normal breath sounds Cardiovascular: regular rate, rhythm, no edema Abdomen/GI: normal bowel sounds, non tender, soft Extremities/Musculoskelatal: no pedal edema, non-tender Neurologic/Psych: no motor/sensory deficits (grossly nonfocal) Skin: warm/dry Laboratory Results Last 24 Hours Test 03/03/16 21:21 03/03/16 22:04 03/04/16 00:00 03/04/16 02:04 Bedside Glucose 207 mg/dl 181 mg/dl Lactic Acid Level 3.3 mmol/L Urine Color DK YELLOW Urine Appearance CLEAR Urine pH 5.0 Urine Specific [place] 1.041 Urine Protein NEG Urine Glucose (UA) 1+ Urine Ketones NEG Urine Occult Blood NEG Urine Nitrite NEG Urine Bilirubin 1+ Urine Urobilinogen POS Urine Leukocyte Esterase NEG Test 03/04/16 02:43 03/04/16 06:58 03/04/16 11:02 03/04/16 11:40 White Blood Count 12.48 K/uL Red Blood Count 2.54 M/uL Hemoglobin 6.2 g/dL Hematocrit 19.5 % Mean Corpuscular Volume 76.8 fL Mean Corpuscular Hemoglobin 24.4 pg Mean Corpuscular Hemoglobin Concent 31.8 g/dl RDW Standard Deviation 52.0 fL RDW Coefficient of Variation 18.8 % Platelet Count 290 K/uL Mean Platelet Volume 9.7 fL Sodium Level 134 mmol/L Potassium Level 4.2 mmol/L Chloride Level 102 mmol/L Carbon Dioxide Level 25 mmol/L Anion Gap 7.0 mmol/L Blood Urea Nitrogen 16 mg/dl Creatinine 0.95 mg/dl Est Creatinine Clear Calc Drug Dose 66.5 ml/min Estimated GFR () 91.7 Estimated GFR (Non- 79.1 BUN/Creatinine Ratio 17.1 Random Glucose 180 mg/dl Lactic Acid Level 0.9 mmol/L Calcium Level 8.2 mg/dl Bedside Glucose 138 mg/dl 193 mg/dl Lactate Dehydrogenase 186 U/L Test 03/04/16 16:22 03/04/16 16:39 Hemoglobin 9.3 g/dL Hematocrit 28.3 % Bedside Glucose 244 mg/dl Assessment & Plan 75 year old male with recently diagnosed stage IV pancreatic cancer Performance status is 3 at this time but could be related to the PE and anemia, and patient also has elevated bilirubin I discussed the diagnosis and the overall poor prognosis of pancreatic cancer with the patient At this time, performance status is poor and bilirubin level is too elevated to start any chemotherapy I discussed palliative care with him and recommend obtain consult given the overall poor prognosis Patient should also follow up in the office upon discharge and we can reassess performance status and his labs - if his bilirubin levels should improve and PFS improves, we could consider chemotherapy with gemcitabine I discussed the potential benefits and risks of chemotherapy. I discussed with him that his cancer is not curable as he has hepatic metastases on CT scan I discussed with him that goal of treatment would be palliative He states that if functional status improves, he would consider the treatment but at this time he agrees that he feels weak in general He is interested in obtaining the palliative care consult for discussion Bilateral PE: patient is hypercoagulable due to the pancreatic cancer. He denies any FH of blood clots. He had vascular surgery consult He has progression of PE on lovenox IVC filter planned Monitor serial CBC. When anemia is stable and bleeding has been ruled out, would recommend IV heparin with close monitoring of his CBCs and aPTT, as he has recent PE and hypercoagulable due to the pancreatic malignancy. Discussed with him that he is still at risk for DVT with IVC filter placement The patient states that he would like to proceed with IVC filter placement Severe Anemia: s/p 4 units PRBC transfusion. microcytic anemia, he denies any known FH of thalassemia or hemoglobinopathy He reports that he has anemia for many years - per patient since . He states that he received a transfusion in the perioperatively when he had surgery check hemoglobin electropheresis, check iron tibc and ferritin b12, folate haptoglobin. LDH was normal. Follow up in the office within 1 week of discharge Discussed with Dr Fry. He checked venous dopplers and were negative for DVT Thank you for allowing me to participate in the care of this patient
[2016-03-04] MEDS: PANTOprazole INJ 40 MG in SYRINGE 0 ML IV SCH (21:41)
[2016-03-05] VITALS (20 sets, daily range): BP systolic 126–171; BP diastolic 57–91; PULSE 51–97; TEMP 36.5–37; O2SAT 94–100
[2016-03-05] MEDS ORDERED: CEFAZOLIN 1000MG/55 ML D5W 55 ML IV SCH (06:00)
[2016-03-05] MEDS: SODIUM CHLORIDE 0.9% 1000ML 1,000 ML IV SCH ×2 (06:10→19:30)
[2016-03-05 06:32] LABS: ESTIMATED AVERAGE GLUCOSE 157 mg/dl; HA1C FLAG Normal (Normal)
--- NOTE | 2016-03-05 06:54 | Progress Note ---
Internal Med Progress Note Date of Service: Mar 05, 2016. Provider Documentation: Made aware by RN of px co of chest pressure this AM "as if belly pushing on chest" last BM yesterday as per RN AF on the monitor (hx AF in the past as per px as per RN) SBP 140s, CR 56-70 minimal cp relief w/ Nitro AP Atypical cp recurrent AF check chem, trop TTE cp will relay to AM provider. Vital Signs: Date Time Temp Pulse Resp B/P Pulse Ox O2 Delivery O2 Flow Rate FiO2 03/05/16 07:33 36.8 66 18 149/80 94 Room Air 03/05/16 04:28 36.7 59 20 143/80 98 Room Air 03/05/16 04:00 Room Air 03/05/16 00:45 36.7 60 17 138/81 100 Room Air 03/04/16 23:59 Room Air 03/04/16 20:00 100 Room Air 03/04/16 19:45 36.9 56 18 148/85 100 Room Air 03/04/16 16:00 100 Room Air 03/04/16 15:41 36.6 59 20 146/88 100 03/04/16 14:57 36.6 57 18 159/89 95 03/04/16 14:20 36.6 65 18 155/83 100 03/04/16 14:06 36.4 75 20 159/77 100 03/04/16 13:17 36.5 58 18 132/73 98 03/04/16 12:10 37.1 63 18 157/72 99 03/04/16 12:00 99 Room Air 03/04/16 11:34 36.9 48 18 139/77 99 03/04/16 11:14 36.5 73 18 156/72 98 03/04/16 11:05 36.5 48 20 134/69 99 Room Air Lab Results: Results Past 24 Hours Test 03/04/16 11:02 03/04/16 11:40 03/04/16 16:22 03/04/16 16:39 Range/Units Bedside Glucose 193 244 70-99 mg/dl Lactate Dehydrogenase 186 87-241 U/L Hemoglobin 9.3 14.0-18.0 g/dL Hematocrit 28.3 42-52 % Test 03/04/16 20:31 03/04/16 20:36 03/05/16 05:41 03/05/16 07:08 Range/Units Hemoglobin 9.3 14.0-18.0 g/dL Hematocrit 27.8 42-52 % Bedside Glucose 125 91 70-99 mg/dl Sodium Level 133 136-145 mmol/L Potassium Level 4.5 3.5-5.1 mmol/L Chloride Level 100 98-107 mmol/L Carbon Dioxide Level 22 21-32 mmol/L Anion Gap 11.0 3-11 mmol/L Blood Urea Nitrogen 11 7-18 mg/dl Creatinine 0.87 0.60-1.40 mg/dl Est Creatinine Clear Calc Drug Dose 74.3 ml/min Estimated GFR () 99.2 Estimated GFR (Non- 85.6 BUN/Creatinine Ratio 12.2 10-20 Random Glucose 98 70-99 mg/dl Estimated Average Glucose 157 mg/dl Hemoglobin A1c 7.1 4.5-5.6 % Calcium Level 8.5 8.5-10.1 mg/dl Magnesium Level 1.4 1.8-2.4 mg/dl Iron Level 29 35-175 mcg/dl Total Iron Binding Capacity 188 250-450 mcg/dl Transferrin 144 200-360 mg/dl Transferrin % Saturation 14 20-50 % Ferritin 1001.0 8.0-388.0 ng/ml Total Bilirubin 4.8 0.2-1 mg/dl Aspartate Amino Transf (AST/SGOT) 27 15-37 U/L Alanine Aminotransferase (ALT/SGPT) 33 12-78 U/L Alkaline Phosphatase 368 45-117 U/L Troponin I < 0.015 0-0.045 ng/ml Total Protein 6.1 6.4-8.2 gm/dl Albumin 2.0 3.4-5.0 gm/dl Globulin 4.1 2.5-4.0 gm/dl Albumin/Globulin Ratio 0.5 0.9-2 Lipase 37 73-393 U/L Thyroid Stimulating Hormone (TSH) 2.510 0.300-4.500 uIu/ml Test 03/05/16 07:17 Range/Units White Blood Count 10.83 4.8-10.8 K/uL Red Blood Count 3.64 4.7-6.1 M/uL Hemoglobin 9.3 14.0-18.0 g/dL Hematocrit 28.4 42-52 % Mean Corpuscular Volume 78.0 80-100 fL Mean Corpuscular Hemoglobin 25.5 25-34 pg Mean Corpuscular Hemoglobin Concent 32.7 32-36 g/dl Platelet Count 303 130-400 K/uL Mean Platelet Volume 11.1 7.4-10.4 fL Neutrophils (%) (Auto) 80.7 % Lymphocytes (%) (Auto) 8.6 % Monocytes (%) (Auto) 8.7 % Eosinophils (%) (Auto) 0.8 % Basophils (%) (Auto) 0.1 % Neutrophils # (Auto) 8.74 1.4-6.5 K/uL Lymphocytes # (Auto) 0.93 1.2-3.4 K/uL Monocytes # (Auto) 0.94 0.11-0.59 K/uL Eosinophils # (Auto) 0.09 0-0.5 K/uL Basophils # (Auto) 0.01 0-0.2 K/uL RDW Standard Deviation 50.6 36.4-46.3 fL RDW Coefficient of Variation 17.5 11.5-14.5 % Immature Granulocyte % (Auto) 1.1 % Immature Granulocyte # (Auto) 0.12 0.00-0.02 K/uL Activated Partial Thromboplast Time 26.3 21.0-31.0 SECONDS Partial Thromboplastin Ratio 1.0
[2016-03-05 07:21] LABS: ALT/SGPT 33 U/L (12-78); BLOOD UREA NITROGEN 11 mg/dl (7-18); BUN/CREATININE RATIO 12.2 (10-20); CALCIUM 8.5 mg/dl (8.5-10.1); CARBON DIOXIDE 22 mmol/L (21-32); CHLORIDE 100 mmol/L (98-107); CREATININE 0.87 mg/dl (0.60-1.40); GLUCOSE 98 mg/dl (70-99); MAGNESIUM 1.4 mg/dl (1.8-2.4); POTASSIUM 4.5 mmol/L (3.5-5.1); SODIUM 133 mmol/L (136-145)
[2016-03-05] MEDS: PANCREAZE (LIPASE 10,500U) CAP PO SCH ×3 (07:25→17:24)
[2016-03-05] MEDS: AMLODIPINE BESYLATE 5 MG TAB PO SCH (07:25)
[2016-03-05] MEDS: TAMSULOSIN HCL 0.4 MG CAP PO SCH (07:25)
[2016-03-05] MEDS: ASCORBIC ACID 500 MG TAB PO SCH (07:26)
[2016-03-05] MEDS: PANTOprazole INJ 40 MG in SYRINGE 0 ML IV SCH ×2 (07:27→19:59)
[2016-03-05 07:36] LABS: ALB/GLOB RATIO 0.5 (0.9-2); ALKALINE PHOSPHATASE 368 U/L (45-117); AST/SGOT 27 U/L (15-37)
[2016-03-05 07:43] LABS: BASO % 0.1 %; BASO ABS # 0.01 K/uL (0-0.2); COMPLETE YES; EOS % 0.8 %; HEMATOCRIT 28.4 % (42-52); IG% 1.1 %; LYMPH % 8.6 %; LYMPH ABS # 0.93 K/uL (1.2-3.4); MEAN CORPUSCULAR HEMOGLOBIN 25.5 pg (25-34); MEAN CORPUSCULAR HGB CONC 32.7 g/dl (32-36); MEAN PLATELET VOLUME 11.1 fL (7.4-10.4); MONO % 8.7 %; NEUT % 80.7 %; PLATELET COUNT 303 K/uL (130-400); RED BLOOD COUNT 3.64 M/uL (4.7-6.1); WHITE BLOOD COUNT 10.83 K/uL (4.8-10.8)
[2016-03-05] MEDS: INSULIN ASPART 100 UNITS/ML 3 ML PEN SC SCH ×4 (08:37→19:59)
[2016-03-05] MEDS: INSULIN GLARGINE SOLOSTAR 100 UNITS/ML 3 ML PEN SC SCH ×2 (08:39→16:55)
--- NOTE | 2016-03-05 08:41 | Progress Note ---
Progress Note Patient for insertion of IVC filter. I have discussed the risks options and benefits of the procedure with the patient. The patient understands the risks options and benefits and agrees to the procedure. I have examined the patient, reviewed the History & Physical and in the interval since the performance of the History & Physical I have noted the following changes of clinical significance: No changes noted
--- NOTE | 2016-03-05 08:41 | Procedure Note ---
Pre-Mod Sedation Assessment General Date of Moderate Sedation: Mar 05, 2016. Vital Signs: Vital Signs Past 12 Hours Date Time Temp Pulse Resp B/P Pulse Ox O2 Delivery O2 Flow Rate FiO2 03/05/16 08:24 36.8 66 18 149/80 94 Room Air 03/05/16 07:33 36.8 66 18 149/80 94 Room Air 03/05/16 04:28 36.7 59 20 143/80 98 Room Air 03/05/16 04:00 Room Air 03/05/16 00:45 36.7 60 17 138/81 100 Room Air 03/04/16 23:59 Room Air Pre-Sedation Airway Assessment Oral Cavity: Dentures Short Thick Neck: No Hx of Sleep Apnea: No Smoking Status: Former Smoker Mallampati Classification: Class I ASA Classification: Class II Notes The planned sedation has been discussed with the patient and consent obtained. I have identified the patient, determined the appropriateness of sedation and have assessed the patient immediately prior to the procedure. All medicine(s) and interventions are by my order.
[2016-03-05] MEDS ORDERED: FENTANYL CITRATE INJ 50 MCG/1 ML 2 ML VIAL ONE (08:43)
[2016-03-05] MEDS ORDERED: MIDAZOLAM HCL 1 MG/ML 2ML VIAL ONE (08:43)
[2016-03-05] MEDS ORDERED: POLYETHYLENE (MIRALAX) 17 GM PACK PO SCH (09:00)
--- NOTE | 2016-03-05 09:14 | [facility] Post Operative Brief Note ---
Immediate Operative Summary Operative Date Mar 05, 2016. Pre-Operative Diagnosis PE while on Lovenox Pancreatic cancer Contraindication for anticoagulation Post-Operative Diagnosis Same Procedure(s) Performed Inferior Vena Cava Filter Placement,Right Femoral Approach Fluoroscopy for Positioning Surgeon Jose Alejandro Churn Driller Surgeon(s) None Estimated Blood Loss 2 Findings filter in infrarenal ivc upright, no cava clot seen Specimens None Anesthesia Local Complication(s) None Disposition
[2016-03-05] MEDS ORDERED: IODIXANOL (VISIPAQUE) 270 MG/ML 50ML IV ONE (09:15)
[2016-03-05] MEDS ORDERED: LIDOCAINE HCL 1% 20 ML VIAL INFIL ONE (09:15)
[2016-03-05] MEDS: MAGNESIUM SULFATE 1GM / D5W 1 GM in PREMIXED IN D5W 100 ML IV SCH ×3 (09:38→11:50)
--- NOTE | 2016-03-05 09:50 | DIAGNOSTIC IMAGING REPORT ---
DATE OF PROCEDURE: 03/05/2016 DATE OF PROCEDURE: 03/05/2016. PREOPERATIVE DIAGNOSIS: Pulmonary embolism while on Lovenox, pancreatic cancer, immobility. POSTOPERATIVE DIAGNOSIS: Same. PROCEDURE: Insertion of inferior vena cava filter femoral approach. SURGEON: Dr. Blount. ANESTHETIC: Local. PROCEDURE INDICATIONS: The patient is a 75-year-old gentleman who was on Lovenox and subsequently had a PE. He is immobile and does have pancreatic CA and hypercoagulable. A prophylactic filter was recommended. He understood the risks, options and benefits and agreed to have this procedure. PROCEDURE: The patient was taken to the angiogram suite and placed in supine position. After right groin was prepped and draped in a sterile manner, local anesthetic was administered. Percutaneous puncture was then made of the right common femoral vein. A guidewire was then passed centrally. The puncture site was then dilated. The filter sheath was inserted. A venacavogram was performed. This showed no cava clot. The renal veins were identified. The filter was then inserted through the sheath and deployed without difficulty in the inferior vena cava in an upright position infrarenally. At that point the sheath was then pulled, pressure was applied. Adequate hemostasis was obtained. Sterile dressings were applied to the wound and the patient left the angio suite in good condition and tolerated the procedure well.
[2016-03-05] MEDS: POLYETHYLENE (MIRALAX) 17 GM PACK PO SCH (09:55)
--- NOTE | 2016-03-05 10:25 | Gastroenterology Progress Note ---
Progress Note Date of Service: Mar 05, 2016 Subjective Pt evaluation today including: conversation w/ patient, physical exam, chart review, lab review, review of inpatient medication list Pt had IVC filter placement by Dr. Blount this AM. Did well. Denies any abd pain , n/v, dark stools or rectal bleeding. Hgb up from 6 to 9 w 4U PRBC yesterday. Review of Systems Constitutional: No chills, No fever Respiratory: No cough, No shortness of breath Cardiac: No chest pain, No edema Abdomen: No nausea, No pain, No vomiting Medications Current Inpatient Medications Medications (Trade) Dose Ordered Sig/Renuka Route Start Time Stop Time Status Last Admin Dose Admin Acetaminophen (Tylenol Tab) 650 mg Q4H PRN PO 03/03/16 20:00 04/02/16 19:59 Ondansetron HCl (Zofran Inj) 4 mg Q6H PRN IV 03/03/16 20:00 04/02/16 19:59 Nitroglycerin (Nitrostat Tab) 0.4 mg UD PRN SL 03/03/16 20:00 04/02/16 19:59 03/05/16 06:41 0.4 MG Amlodipine Besylate (Norvasc Tab) 10 mg DAILY PO 03/04/16 09:00 04/03/16 08:59 03/05/16 07:25 10 MG Ascorbic Acid (Vitamin C Tab) 500 mg DAILY PO 03/04/16 09:00 04/03/16 08:59 03/05/16 07:26 500 MG Amylase/Lipase/ Protease (Pancreaze (Lipase 10,500U) Cap) 1 cap AC PO 03/04/16 07:00 04/03/16 07:59 03/05/16 07:25 1 CAP Tamsulosin HCl (Flomax Cap) 0.4 mg DAILY PO 03/04/16 09:00 04/03/16 08:59 03/05/16 07:25 0.4 MG Polyethylene (Miralax Powder Packet) 17 gm QAM PO 03/04/16 09:00 04/03/16 08:59 03/05/16 09:55 17 GM Insulin Aspart (novoLOG ASPART) SLIDING SCALE If C... ACHS SC 03/03/16 22:30 04/02/16 22:29 03/04/16 17:23 7 UNITS Glucose (Glucose 40% Gel) 15-30 GRAMS 15 GRAMS... UD PRN PO 03/03/16 20:15 04/02/16 20:14 Glucose (Glucose Chew Tab) 4-8 Tablets 4 Tabl... UD PRN PO 03/03/16 20:15 04/02/16 20:14 Dextrose (Dextrose 50% 50ML Syringe) 25-50ML OF 50% DW IV FOR... UD PRN IV 03/03/16 20:15 04/02/16 20:14 Glucagon (Glucagon Inj) 1 mg UD PRN SQ 03/03/16 20:15 04/02/16 20:14 Miscellaneous Information (Consult Glycemic Management Pharmacy) 1 ea UD PRN N/A 03/03/16 21:15 04/02/16 21:14 Ioversol (Optiray 320) 111 ml UD PRN IV 03/03/16 20:30 03/07/16 20:29 Morphine Sulfate 2 mg 2 mg Q6H PRN IV 03/03/16 21:15 03/17/16 21:14 Sodium Chloride 1,000 ml @ 75 mls/hr [id number] IV 03/04/16 03:30 04/03/16 03:29 03/05/16 06:10 75 MLS/HR Pantoprazole Sodium/Syringe (Protonix Inj/ Syringe) 10 ml @ 40 mls/min BID IV 03/04/16 21:00 04/03/16 20:59 03/05/16 07:27 40 MLS/MIN Insulin Glargine 10 unit 10 unit DAILY SC 03/05/16 09:00 04/04/16 08:59 Future Hold Cefazolin Sodium 55 ml @ 100 mls/hr PREOP IV 03/05/16 06:00 03/06/16 05:59 Magnesium Sulfate/ Prmx (Magnesium Sulfate/Premixed D5W) 100 ml @ 100 mls/hr 0830,0930,1030 IV 03/05/16 08:30 03/05/16 13:00 03/05/16 09:38 100 MLS/HR Objective Vital Signs Date Time Temp Pulse Resp B/P Pulse Ox O2 Delivery O2 Flow Rate FiO2 03/05/16 10:03 37.0 73 20 150/77 99 Room Air 03/05/16 10:00 73 20 150/77 99 03/05/16 09:45 53 18 156/87 99 03/05/16 09:30 37.0 51 20 155/83 98 03/05/16 08:24 36.8 66 18 149/80 94 Room Air 03/05/16 08:00 99 Room Air 03/05/16 07:33 36.8 66 18 149/80 94 Room Air 03/05/16 04:28 36.7 59 20 143/80 98 Room Air 03/05/16 04:00 Room Air 03/05/16 00:45 36.7 60 17 138/81 100 Room Air 03/04/16 23:59 Room Air 03/04/16 20:00 100 Room Air 03/04/16 19:45 36.9 56 18 148/85 100 Room Air 03/04/16 16:00 100 Room Air 03/04/16 15:41 36.6 59 20 146/88 100 03/04/16 14:57 36.6 57 18 159/89 95 03/04/16 14:20 36.6 65 18 155/83 100 03/04/16 14:06 36.4 75 20 159/77 100 03/04/16 13:17 36.5 58 18 132/73 98 03/04/16 12:10 37.1 63 18 157/72 99 03/04/16 12:00 99 Room Air 03/04/16 11:34 36.9 48 18 139/77 99 03/04/16 11:14 36.5 73 18 156/72 98 03/04/16 11:05 36.5 48 20 134/69 99 Room Air Physical Exam General Appearance: WD/WN, no apparent distress Eyes: normal inspection, PERRL, EOMI Neck: supple, no JVD, trachea midline Respiratory/Chest: normal breath sounds, no respiratory distress, no accessory muscle use Cardiovascular: regular rate, rhythm, no gallop, no murmur Abdomen: normal bowel sounds, non tender, soft Extremities: normal inspection Neurologic/Psych: alert, normal mood/affect, oriented x 3 Skin: normal color, no jaundice, no rash Laboratory Results Last 24 Hours Test 03/04/16 11:02 03/04/16 11:40 03/04/16 16:22 03/04/16 16:39 Bedside Glucose 193 mg/dl 244 mg/dl Lactate Dehydrogenase 186 U/L Hemoglobin 9.3 g/dL Hematocrit 28.3 % Test 03/04/16 20:31 03/04/16 20:36 03/05/16 05:41 03/05/16 07:08 Hemoglobin 9.3 g/dL Hematocrit 27.8 % Bedside Glucose 125 mg/dl 91 mg/dl Sodium Level 133 mmol/L Potassium Level 4.5 mmol/L Chloride Level 100 mmol/L Carbon Dioxide Level 22 mmol/L Anion Gap 11.0 mmol/L Blood Urea Nitrogen 11 mg/dl Creatinine 0.87 mg/dl Est Creatinine Clear Calc Drug Dose 74.3 ml/min Estimated GFR () 99.2 Estimated GFR (Non- 85.6 BUN/Creatinine Ratio 12.2 Random Glucose 98 mg/dl Estimated Average Glucose 157 mg/dl Hemoglobin A1c 7.1 % Calcium Level 8.5 mg/dl Magnesium Level 1.4 mg/dl Iron Level 29 mcg/dl Total Iron Binding Capacity 188 mcg/dl Transferrin 144 mg/dl Transferrin % Saturation 14 % Ferritin 1001.0 ng/ml Total Bilirubin 4.8 mg/dl Aspartate Amino Transf (AST/SGOT) 27 U/L Alanine Aminotransferase (ALT/SGPT) 33 U/L Alkaline Phosphatase 368 U/L Troponin I < 0.015 ng/ml Total Protein 6.1 gm/dl Albumin 2.0 gm/dl Globulin 4.1 gm/dl Albumin/Globulin Ratio 0.5 Lipase 37 U/L Vitamin B12 Level 572 pg/mL Folate 7.60 ng/mL Thyroid Stimulating Hormone (TSH) 2.510 uIu/ml Test 03/05/16 07:17 03/05/16 08:00 White Blood Count 10.83 K/uL Red Blood Count 3.64 M/uL Hemoglobin 9.3 g/dL Hematocrit 28.4 % Mean Corpuscular Volume 78.0 fL Mean Corpuscular Hemoglobin 25.5 pg Mean Corpuscular Hemoglobin Concent 32.7 g/dl Platelet Count 303 K/uL Mean Platelet Volume 11.1 fL Neutrophils (%) (Auto) 80.7 % Lymphocytes (%) (Auto) 8.6 % Monocytes (%) (Auto) 8.7 % Eosinophils (%) (Auto) 0.8 % Basophils (%) (Auto) 0.1 % Neutrophils # (Auto) 8.74 K/uL Lymphocytes # (Auto) 0.93 K/uL Monocytes # (Auto) 0.94 K/uL Eosinophils # (Auto) 0.09 K/uL Basophils # (Auto) 0.01 K/uL RDW Standard Deviation 50.6 fL RDW Coefficient of Variation 17.5 % Immature Granulocyte % (Auto) 1.1 % Immature Granulocyte # (Auto) 0.12 K/uL Activated Partial Thromboplast Time 26.3 SECONDS Partial Thromboplastin Ratio 1.0 Assessment and Plan Patient is a 75 year old male w metastatic pancreas adenocarcinoma, biliary obstruction s/p ERCP placement of biliary stent who presented to ED w dyspnea on exertion and found to have worsening anemia. Hgb at baseline was 9, now down to 6.2. He does have bilateral PEs on Lovenox, now held. He did note diffuse abd pain, but none now. Also some nausea w/o vomiting, now hungry and wants food. Denies any dark tarry stools. Hemoccult was negative in ED. He had IVC filter placement done in AM by Dr. Blount. Continues to have no s/s of magaly GI bleeding. Hgb improved from 6 to 9 after 4U PRBC transfusion. Plans - He reported Colonoscopy a month ago at [facility] (we do not have records to review). In light of negative hemoccult, no magaly s/s of GI bleed, and very low Hgb of 6 (would be considered as unstable for sedation) would defer endoscopic evals for now. Agree w transfusion, Heme/Onc consult and monitoring for now. - Will follow along peripherally; call over weekend if questions or concerns arise.
[2016-03-05 12:20] LABS: HEMATOCRIT 31.5 % (42-52)
--- NOTE | 2016-03-05 13:11 | ECHOCARDIOGRAM REPORT ---
*NOTICE TO RECEIVING REPUBLICAN AGENCY This information is strictly Confidential and protected under [place] law. [place] law prohibits you from making any further disclosure of this information unless further disclosure is expressly permitted by the written consent of the person to whom it pertains or is authorized by law. A general authorization for the release of medical or other information is not sufficient for this purpose. Hospital accepts no responsibility if the information is made available to any other person, INCLUDING THE PATIENT. Interpretation Summary * Name: JAMMIE AGUILAR [id number] Study Date: 03/05/2016 10:55 AM BP: 127/63 mmHg * Patient Location: [facility] HR: 50 * : 1940 (M/d/yyyy) Gender: Male Height: 70 in * Age: 75 yrs Ethnicity: [place] Weight: 153 lb * Ordering Physician: Afsaneh Sharp * Performed By: Saima Baldwin RCS * * Reason For Study: Chest Pain * BSA: 1.9 m2 * The study was technically adequate. * -- Conclusions -- * The left ventricular wall motion is normal. * Left ventricular systolic function is normal. * Ejection Fraction = 60-65%. * Aortic valve sclerosis moderate, without significant aortic valvular stenosis. * Trace aortic regurgitation. * There is mild mitral regurgitation. * There is mild tricuspid regurgitation. * Doppler findings do not suggest pulmonary hypertension. * Grade I diastolic dysfunction, (abnormal relaxation pattern). Procedure Details * A complete two-dimensional transthoracic echocardiogram was performed (2D, M-mode, Doppler and color flow Doppler). Left Ventricle * The left ventricle is normal in size. * There is normal left ventricular wall thickness. * Left ventricular systolic function is normal. * Ejection Fraction = 60-65%. * The left ventricular wall motion is normal. Right Ventricle * The right ventricle is normal size. * The right ventricular systolic function is normal as assessed by tricuspid annular plane systolic excursion (TAPSE) (normal >1.5 cm). Atria * The left atrial size is normal. * Right atrial size is normal. * There is no evidence of atrial septal defect, but resolution does not allow assessment for a patent foramen ovale. Mitral Valve * The mitral valve is normal. * There is no mitral valve stenosis. * There is mild mitral regurgitation. Tricuspid Valve * The tricuspid valve is normal. * There is no tricuspid stenosis. * There is mild tricuspid regurgitation. * Doppler findings do not suggest pulmonary hypertension. Aortic Valve * The aortic valve is trileaflet. * Aortic valve sclerosis moderate, without significant aortic valvular stenosis. * Aortic stenosis is absent. * Trace aortic regurgitation. Pulmonic Valve * The pulmonary valve is not well seen, but the Doppler examination is normal without significant regurgitation or stenosis. Great Vessels * The aortic root and proximal ascending aorta are normal sized. Pericardium/Pleural * There is no pericardial effusion. Great Vessels * Normal inferior vena cava diameter and respiratory variation suggests normal central venous pressure. * Normal inferior vena cava size and collapsability with sniff indicates a normal right atrial pressure of 3 mmHg Left Ventricular Diastolic Function * Grade I diastolic dysfunction, (abnormal relaxation pattern). MMode 2D Measurements and Calculations IVSd 1.1 cm IVSs 1.3 cm LVIDd 5.2 cm LVIDs 3.4 cm LVPWd 1.1 cm LVPWs 1.4 cm IVS/LVPW 0.97 FS 35.4 % EDV(Teich) 131.6 ml ESV(Teich) 46.8 ml EF(Teich) 64.4 % EDV(cubed) 143.5 ml ESV(cubed) 38.7 ml EF(cubed) 73.1 % % IVS thick 21.3 % % LVPW thick 25.1 % LV mass(C)d 215.0 grams LV mass(C)dI 115.4 grams/m\S\2 LV mass(C)s 149.8 grams LV mass(C)sI 80.4 grams/m\S\2 CO(Teich) 4.2 l/min CI(Teich) 2.3 l/min/m\S\2 SV(Teich) 84.8 ml SI(Teich) 45.5 ml/m\S\2 CO(cubed) 5.2 l/min CI(cubed) 2.8 l/min/m\S\2 SV(cubed) 104.9 ml SI(cubed) 56.3 ml/m\S\2 Ao root diam 4.0 cm Ao root area 12.6 cm\S\2 ACS 1.7 cm LA dimension 3.7 cm LA/Ao 0.93 LVAd ap4 45.7 cm\S\2 LVLd ap4 9.9 cm EDV(MOD-sp4) 170.0 ml LVAs ap4 26.2 cm\S\2 LVLs ap4 8.1 cm ESV(MOD-sp4) 71.0 ml EF(MOD-sp4) 58.2 % LVAd ap2 42.0 cm\S\2 LVLd ap2 9.8 cm EDV(MOD-sp2) 149.0 ml LVAs ap2 24.5 cm\S\2 LVLs ap2 8.1 cm ESV(MOD-sp2) 64.0 ml EF(MOD-sp2) 57.0 % CO(MOD-sp4) 5.0 l/min CI(MOD-sp4) 2.7 l/min/m\S\2 SV(MOD-sp4) 99.0 ml SI(MOD-sp4) 53.1 ml/m\S\2 CO(MOD-sp2) 4.3 l/min CI(MOD-sp2) 2.3 l/min/m\S\2 SV(MOD-sp2) 85.0 ml SI(MOD-sp2) 45.6 ml/m\S\2 Doppler Measurements and Calculations MV E max esther 64.7 cm/sec MV A max esther 88.4 cm/sec MV E/A 0.73 MV P1/2t max esther 106.9 cm/sec MV P1/2t 82.1 msec MVA(P1/2t) 2.7 cm\S\2 MV dec slope 381.3 cm/sec\S\2 MV dec time 0.28 sec Ao V2 max 173.7 cm/sec Ao max PG 12.1 mmHg Ao max PG (full) 6.9 mmHg LV V1 max PG 5.2 mmHg LV V1 max 113.5 cm/sec PA V2 max 91.3 cm/sec PA max PG 3.4 mmHg PI max esther 209.9 cm/sec PI max PG 17.6 mmHg PI dec slope 165.6 cm/sec\S\2 PI P1/2t 371.3 msec TR max esther 304.8 cm/sec
--- NOTE | 2016-03-05 14:52 | Pharmacy Progress Note ---
Glycemic Control: Progress Nt Date of Service Mar 05, 2016. Scope Glycemic Pharmacist consulted by Malia Alejandro PA-C on 03/03/16 for glycemic control and to write orders per formerly [facility] inpatient glycemic control protocol. Objective Accuchecks BSG (last 24hrs): Test 03/04/16 16:39 03/04/16 20:36 03/05/16 05:41 03/05/16 07:08 Bedside Glucose 244 mg/dl (70-99) 125 mg/dl (70-99) 91 mg/dl (70-99) Random Glucose 98 mg/dl (70-99) Test 03/05/16 11:42 Bedside Glucose 126 mg/dl (70-99) Laboratory Data (last 24hrs) Test 03/05/16 05:41 03/05/16 07:17 Anion Gap 11.0 mmol/L BUN/Creatinine Ratio 12.2 Blood Urea Nitrogen 11 mg/dl Creatinine 0.87 mg/dl Hemoglobin A1c 7.1 % Potassium Level 4.5 mmol/L Sodium Level 133 mmol/L White Blood Count 10.83 K/uL Red Blood Count 3.64 M/uL Hemoglobin 9.3 g/dL Hematocrit 28.4 % Mean Corpuscular Volume 78.0 fL Mean Corpuscular Hemoglobin 25.5 pg Mean Corpuscular Hemoglobin Concent 32.7 g/dl Platelet Count 303 K/uL Mean Platelet Volume 11.1 fL Neutrophils (%) (Auto) 80.7 % Lymphocytes (%) (Auto) 8.6 % Monocytes (%) (Auto) 8.7 % Eosinophils (%) (Auto) 0.8 % Basophils (%) (Auto) 0.1 % Neutrophils # (Auto) 8.74 K/uL Lymphocytes # (Auto) 0.93 K/uL Monocytes # (Auto) 0.94 K/uL Eosinophils # (Auto) 0.09 K/uL Basophils # (Auto) 0.01 K/uL HbA1c: Test 03/05/16 05:41 Hemoglobin A1c 7.1 % (4.5-5.6) H Recent Pertinent Medications Outpatient Anti-diabetic Regimen: * Lantus 10 units SQ QAM * Novolog 5 units SQ TID * Metformin 500mg PO BID * A1c = 7.1% 03/05/16 Risk Factors for Insulin Resistance: * Recent surgery: POD#0 IVC filter * Diet: NPO --> clear liquids Assessment & Plan ASSESSMENT: * ADA & AACE recommend a goal blood sugar range 140-180 mg/dl for the majority of critically ill & non-critically ill patients. However, more stringent targets may be selected in individual cases. 03/04/16 * Patient is a 75yo diabetic male admitted with anemia. * HbA1c is ordered for tomorrow with AM labs to assess glycemic control as an outpatient. 03/05/16 * A1c back at 7.1% today. Blood sugars good today, and Lantus held when patient was NPO for IVC filter placement. Patient only on clears now, so I will continue to hold Lantus for today and restart it tomorrow morning. * Change goal range for patient's A1c and age. PLAN FOR INPATIENT GLYCEMIC CONTROL: * Holding outpatient oral diabetes medications * Lantus Held today, restart LANTUS 10 units SQ QAM tomorrow * Correctional Insulin with NOVOLOG per scale ACHS * CHANGE Goal Range: Low 110 mg/dL - High 140 mg/dL * Correction Factor: 30 mg/dL/unit * Nutritional / Prandial insulin per carb ratio of 1 unit per 12 grams CHO consumed * Please note that the plan above was derived based on current level of insulin resistance and hospital stress. These recommendations are appropriate for inpatient admission only. Plan of care upon discharge will need to be reassessed to avoid potential outpatient hypo/hyperglycemia. Thank you.
[2016-03-05 16:28] LABS: HEMATOCRIT 26.4 % (42-52)
--- NOTE | 2016-03-05 16:51 | Progress Note ---
Internal Med Progress Note Date of Service: Mar 05, 2016. Provider Documentation: SUBJECTIVE: resting comfortably s/p ivc filter today denies any chest pain denies sob want to advance the diet OBJECTIVE: Vital Signs-as noted below Exam: General-alert and oriented ENT-normal hearing Neck-no neck masses Lungs-cta b/l no wheezing or crackles Heart-s1 and s2 heard regular rate and rhythm no murmurs Abdomen-soft bowel sounds present non tender no distension Extremities-no erythema no edema s/p IVC filter-site on right groin no drainage seen Neuro-alert and awake moves extremities Lab data as noted below. ASSESSMENT & PLAN: ANEMIA R/O GI BLEED Presented with generalized weakness, worsening SOB and possible syncopal episode Colonoscopy 01/2016 WNL FOBT is negative in ED patient on Lovenox for PE and CT chest/abd/pelvis no hematoma seen holding ASA and Lovenox on Protonix bid s/p 4units of prbc transfused so far appreciate GI inputs hb currently was 10.3 in am and 8.8 in evening will monitor EXERTIONAL SOB cxr negative stable now Chest pain complained chest pain in am serial CE negative echo unremarkable currently asymptomatic. ABDOMINAL PAIN likely secondary to pancreatic carcinoma morphine PRN pain RECENTLY DIAGNOSED BILATERAL PE Bilateral PE on CT chest 02/24/16 holding ASA and Lovenox for now Lower extremity Doppler no DVT s/p ivc filter today as pancreatic cancer associated with DVT's- will discuss with Heme/onco about restarting Lovenox shots But anyway prognosis seems poor METASTATIC PANCREATIC ADENOCARCINOMA diagnosed this month s/p biliary stent placement 02/27/16 to cont pancreatic enzymes bilirubin levels coming down-4.8 today heme/onco consulted- not a chemo candidate as bilirubin is high and poor functional staus consulted palliative care 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 holding metformin to cont Lantus and start ISS will monitor BSG AC HS GERD PPI HTN on Norvasc will monitor DVT PROPHYLAXIS SCDs only for now CODE STATUS FULL CODE status per discussion with patient upon admission Disposition To be determined await palliative care consult Vital Signs: Date Time Temp Pulse Resp B/P Pulse Ox O2 Delivery O2 Flow Rate FiO2 03/05/16 15:50 Room Air 03/05/16 15:47 36.5 97 20 156/76 98 03/05/16 14:30 64 20 171/91 100 03/05/16 14:19 79 03/05/16 13:30 73 20 158/87 98 03/05/16 12:30 70 20 152/87 98 03/05/16 12:00 99 Room Air 03/05/16 11:30 58 20 126/57 96 03/05/16 11:00 68 20 127/63 96 03/05/16 10:30 53 20 152/73 95 03/05/16 10:15 66 20 144/84 98 66 03/05/16 10:03 37.0 73 20 150/77 99 Room Air 03/05/16 10:00 73 20 150/77 99 03/05/16 09:45 53 18 156/87 99 03/05/16 09:30 37.0 51 20 155/83 98 03/05/16 08:24 36.8 66 18 149/80 94 Room Air 03/05/16 08:00 99 Room Air 03/05/16 07:33 36.8 66 18 149/80 94 Room Air 03/05/16 04:28 36.7 59 20 143/80 98 Room Air 03/05/16 04:00 Room Air 03/05/16 00:45 36.7 60 17 138/81 100 Room Air 03/04/16 23:59 Room Air 03/04/16 20:00 100 Room Air 03/04/16 19:45 36.9 56 18 148/85 100 Room Air Lab Results: Results Past 24 Hours Test 03/04/16 16:39 03/04/16 20:31 03/04/16 20:36 03/05/16 05:41 Range/Units Bedside Glucose 244 125 70-99 mg/dl Hemoglobin 9.3 14.0-18.0 g/dL Hematocrit 27.8 42-52 % Sodium Level 133 136-145 mmol/L Potassium Level 4.5 3.5-5.1 mmol/L Chloride Level 100 98-107 mmol/L Carbon Dioxide Level 22 21-32 mmol/L Anion Gap 11.0 3-11 mmol/L Blood Urea Nitrogen 11 7-18 mg/dl Creatinine 0.87 0.60-1.40 mg/dl Est Creatinine Clear Calc Drug Dose 74.3 ml/min Estimated GFR () 99.2 Estimated GFR (Non- 85.6 BUN/Creatinine Ratio 12.2 10-20 Random Glucose 98 70-99 mg/dl Estimated Average Glucose 157 mg/dl Hemoglobin A1c 7.1 4.5-5.6 % Calcium Level 8.5 8.5-10.1 mg/dl Magnesium Level 1.4 1.8-2.4 mg/dl Iron Level 29 35-175 mcg/dl Total Iron Binding Capacity 188 250-450 mcg/dl Transferrin 144 200-360 mg/dl Transferrin % Saturation 14 20-50 % Ferritin 1001.0 8.0-388.0 ng/ml Total Bilirubin 4.8 0.2-1 mg/dl Aspartate Amino Transf (AST/SGOT) 27 15-37 U/L Alanine Aminotransferase (ALT/SGPT) 33 12-78 U/L Alkaline Phosphatase 368 45-117 U/L Troponin I < 0.015 0-0.045 ng/ml Total Protein 6.1 6.4-8.2 gm/dl Albumin 2.0 3.4-5.0 gm/dl Globulin 4.1 2.5-4.0 gm/dl Albumin/Globulin Ratio 0.5 0.9-2 Lipase 37 73-393 U/L Vitamin B12 Level 572 211-911 pg/mL Folate 7.60 >5.38 ng/mL Thyroid Stimulating Hormone (TSH) 2.510 0.300-4.500 uIu/ml Test 03/05/16 07:08 03/05/16 07:17 03/05/16 11:42 03/05/16 12:01 Range/Units Bedside Glucose 91 126 70-99 mg/dl White Blood Count 10.83 4.8-10.8 K/uL Red Blood Count 3.64 4.7-6.1 M/uL Hemoglobin 9.3 10.3 14.0-18.0 g/dL Hematocrit 28.4 31.5 42-52 % Mean Corpuscular Volume 78.0 80-100 fL Mean Corpuscular Hemoglobin 25.5 25-34 pg Mean Corpuscular Hemoglobin Concent 32.7 32-36 g/dl Platelet Count 303 130-400 K/uL Mean Platelet Volume 11.1 7.4-10.4 fL Neutrophils (%) (Auto) 80.7 % Lymphocytes (%) (Auto) 8.6 % Monocytes (%) (Auto) 8.7 % Eosinophils (%) (Auto) 0.8 % Basophils (%) (Auto) 0.1 % Neutrophils # (Auto) 8.74 1.4-6.5 K/uL Lymphocytes # (Auto) 0.93 1.2-3.4 K/uL Monocytes # (Auto) 0.94 0.11-0.59 K/uL Eosinophils # (Auto) 0.09 0-0.5 K/uL Basophils # (Auto) 0.01 0-0.2 K/uL RDW Standard Deviation 50.6 36.4-46.3 fL RDW Coefficient of Variation 17.5 11.5-14.5 % Immature Granulocyte % (Auto) 1.1 % Immature Granulocyte # (Auto) 0.12 0.00-0.02 K/uL Activated Partial Thromboplast Time 26.3 21.0-31.0 SECONDS Partial Thromboplastin Ratio 1.0 Test 03/05/16 16:16 03/05/16 16:20 Range/Units Bedside Glucose 302 70-99 mg/dl Hemoglobin 8.8 14.0-18.0 g/dL Hematocrit 26.4 42-52 %
[2016-03-05] MEDS ORDERED: NURSING VERBAL MED ORDER ONE (19:45)
[2016-03-05] MEDS ORDERED: DOCUSATE SODIUM/SENNA 50/8.6MG TAB PO ONE (20:13)
[2016-03-05] MEDS ORDERED: LACTULOSE SYRUP 20 GM/30 ML UDC PO ONE (20:15)
[2016-03-05] MEDS ORDERED: LACTULOSE SYRUP 30 GM/45 ML UDP PO ONE ×2 (21:00→22:00)
--- NOTE | 2016-03-05 23:35 | Hematology/Oncology Prog Note ---
Hematology/Onc Progress Note Date of Service Mar 05, 2016. Diagnoses 1. ACUTE ANEMIA R/O GI BLEED Colonoscopy 01/2016 WNL FOBT is negative in ED holding ASA and Lovenox on Protonix bid s/p 4units of prbc Hematology recommendation from 03/05/16: To get actual FOBT off stool sample while patient hospitalized as GI has not recommended endoscopy to further evaluate, recommend FOBT to be negative prior to starting anticoagulation. Dr. Ross does still recommend endoscopy to evaluate acute onset anemia, as the site of blood loss has not be specified and patient does not have labs consistent with hemolysis. Hgb EP pending. 2. EXERTIONAL SOB cxr negative patient reports this has improved since admission 3. RECENTLY DIAGNOSED BILATERAL PE Bilateral PE on CT chest 02/24/16 holding ASA and Lovenox for now Lower extremity Doppler no DVT S/p IVC filter placement on 03/05/16 Hematology recommendation from 03/05/16: Dr. Ross has recommended starting heparin IV drip after FOBT in hospital off stool is negative (ER sample noted) AND anemia remains stable; patient then could be converted to Lovenox if stable on heparin drip. Close monitoring of his CBCs and aPTT, as he has recent PE and hypercoagulable due to the pancreatic malignancy. 4. METASTATIC PANCREATIC ADENOCARCINOMA diagnosed this month s/p biliary stent placement 02/27/16 Total bilirubin trending down Hematology recommendation from 03/05/16: check LFT daily Subjective Patient reports feeling overall well today. He states that his IVC filter placement was performed today without complication. He has been up walking around today after the procedure. He states that his dyspnea on exertion has improved. He is not having chest pain or cough. He has been started on clear liquids and is advancing to diabetic diet this evening. He is not having nausea , abdominal pain, bowel irregularity, bloody or black stools. He denies any bleeding from any site. Review of Systems: Constitutional: + fatigue, + weight loss (20 lb weight loss in 6 months), No chills, No fever Respiratory: + dyspnea on exertion, No cough, No sputum, No wheezing Cardiovascular: No chest pain, No palpitations Abdomen: No GI bleeding, No constipation, No diarrhea, No pain, No vomiting Male : No hematuria Heme: + abnormal bleeding/bruising, No clotting problems Skin: No itch, No rash Vital Signs Vital Signs Past 12 Hours Date Time Temp Pulse Resp B/P Pulse Ox O2 Delivery O2 Flow Rate FiO2 03/05/16 15:50 Room Air 03/05/16 15:47 36.5 97 20 156/76 98 03/05/16 14:30 64 20 171/91 100 03/05/16 13:30 73 20 158/87 98 03/05/16 12:30 70 20 152/87 98 03/05/16 12:00 99 Room Air 03/05/16 11:30 58 20 126/57 96 03/05/16 11:00 68 20 127/63 96 03/05/16 10:30 53 20 152/73 95 03/05/16 10:15 66 20 144/84 98 66 03/05/16 10:03 37.0 73 20 150/77 99 Room Air 03/05/16 10:00 73 20 150/77 99 03/05/16 09:45 53 18 156/87 99 03/05/16 09:30 37.0 51 20 155/83 98 03/05/16 08:24 36.8 66 18 149/80 94 Room Air 03/05/16 08:00 99 Room Air 03/05/16 07:33 36.8 66 18 149/80 94 Room Air 03/05/16 04:28 36.7 59 20 143/80 98 Room Air Physical Exam Constitutional: General Apperance: too thin Level of Distress: NAD, chronically ill Head: normocephalic, atraumatic Eyes: EOM: pertinent finding (icteric sclerae) Lungs: Auscuitation: breath sounds normal, no wheezing, no rales/crackles Cardiovascular: Heart Auscultation: RRR Abdomen: Bowel Sounds: normal Inspection & Palpation: soft, non-distended, no tenderness, guarding & rebound Liver: hepatomegaly (? 6 cm liver edge palpable below costal border) Extremities: no cyanosis, no edema Neurologic: Cranial Nerves: grossly intact Laboratory 03/03/16 17:55 Red Blood Count 2.69, Mean Corpuscular Volume 74.0, Mean Corpuscular Hemoglobin 23.4, Mean Corpuscular Hemoglobin Concent 31.7, Mean Platelet Volume 11.3, Neutrophils (%) (Auto) 78.9, Lymphocytes (%) (Auto) 6.5, Monocytes (%) (Auto) 12.2, Eosinophils (%) (Auto) 0.4, Basophils (%) (Auto) 0.2, Neutrophils # (Auto ) 9.03, Lymphocytes # (Auto) 0.74, Monocytes # (Auto) 1.39, Eosinophils # (Auto ) 0.05, Basophils # (Auto) 0.02 03/04/16 02:43 03/04/16 16:22 03/04/16 20:31 03/05/16 07:17 Red Blood Count 3.64, Mean Corpuscular Volume 78.0, Mean Corpuscular Hemoglobin 25.5, Mean Corpuscular Hemoglobin Concent 32.7, Mean Platelet Volume 11.1, Neutrophils (%) (Auto) 80.7, Lymphocytes (%) (Auto) 8.6, Monocytes (%) (Auto) 8.7, Eosinophils (%) (Auto) 0.8, Basophils (%) (Auto) 0.1, Neutrophils # (Auto) 8.74, Lymphocytes # (Auto) 0.93, Monocytes # (Auto) 0.94, Eosinophils # (Auto) 0.09, Basophils # (Auto) 0.01 03/05/16 12:01 03/03/16 17:55 03/04/16 02:43 03/05/16 05:41 Test 03/03/16 17:55 03/03/16 21:21 03/03/16 22:04 03/04/16 00:00 White Blood Count 11.44 K/uL (4.8-10.8) Red Blood Count 2.69 M/uL (4.7-6.1) Hemoglobin 6.3 g/dL (14.0-18.0) Hematocrit 19.9 % (42-52) Mean Corpuscular Volume 74.0 fL (80-100) Mean Corpuscular Hemoglobin 23.4 pg (25-34) Mean Corpuscular Hemoglobin Concent 31.7 g/dl (32-36) Platelet Count 347 K/uL (130-400) Mean Platelet Volume 11.3 fL (7.4-10.4) Neutrophils (%) (Auto) 78.9 % Lymphocytes (%) (Auto) 6.5 % Monocytes (%) (Auto) 12.2 % Eosinophils (%) (Auto) 0.4 % Basophils (%) (Auto) 0.2 % Neutrophils # (Auto) 9.03 K/uL (1.4-6.5) Lymphocytes # (Auto) 0.74 K/uL (1.2-3.4) Monocytes # (Auto) 1.39 K/uL (0.11-0.59) Eosinophils # (Auto) 0.05 K/uL (0-0.5) Basophils # (Auto) 0.02 K/uL (0-0.2) RDW Standard Deviation 52.9 fL (36.4-46.3) RDW Coefficient of Variation 20.3 % (11.5-14.5) Immature Granulocyte % (Auto) 1.8 % Immature Granulocyte # (Auto) 0.21 K/uL (0.00-0.02) Polychromasia 1+ Hypochromasia PRESENT Target Cells 2+ Schistocytes 1+ Peripheral Blood Smear Path Consult Absolute Reticulocyte Count 0.10 10^6/uL (0.02-0.10) Percent Reticulocyte Count 3.7 % (0.5-2.0) Prothrombin Time 11.7 SECONDS (9.0-12.0) Prothromb Time International Ratio 1.1 (0.9-1.1) Activated Partial Thromboplast Time 27.6 SECONDS (21.0-31.0) Partial Thromboplastin Ratio 1.1 D-Dimer 3000 ug/L FEU (0-500) Anion Gap 9.0 mmol/L (3-11) Est Creatinine Clear Calc Drug Dose 55.9 ml/min Estimated GFR () 69.1 Estimated GFR (Non- 59.6 BUN/Creatinine Ratio 16.4 (10-20) Lactic Acid Level 2.7 mmol/L (0.4-2.0) 3.3 mmol/L (0.4-2.0) Calcium Level 8.6 mg/dl (8.5-10.1) Total Bilirubin 5.1 mg/dl (0.2-1) Direct Bilirubin 4.6 mg/dl (0-0.2) Aspartate Amino Transf (AST/SGOT) 23 U/L (15-37) Alanine Aminotransferase (ALT/SGPT) 41 U/L (12-78) Alkaline Phosphatase 404 U/L (45-117) Troponin I < 0.015 ng/ml (0-0.045) Total Protein 6.6 gm/dl (6.4-8.2) Albumin 2.2 gm/dl (3.4-5.0) Lipase 35 U/L (73-393) Bedside Glucose 207 mg/dl (70-99) Urine Color DK YELLOW Urine Appearance CLEAR (CLEAR) Urine pH 5.0 (4.5-7.5) Urine Specific Remus 1.041 (1.000-1.030) Urine Protein NEG (NEG) Urine Glucose (UA) 1+ (NEG) Urine Ketones NEG (NEG) Urine Occult Blood NEG (NEG) Urine Nitrite NEG (NEG) Urine Bilirubin 1+ (NEG) Urine Urobilinogen POS (NEG) Urine Leukocyte Esterase NEG (NEG) Test 03/04/16 02:04 03/04/16 02:43 03/04/16 06:58 03/04/16 11:02 Bedside Glucose 181 mg/dl (70-99) 138 mg/dl (70-99) 193 mg/dl (70-99) Red Blood Count 2.54 M/uL (4.7-6.1) Mean Corpuscular Volume 76.8 fL (80-100) Mean Corpuscular Hemoglobin 24.4 pg (25-34) Mean Corpuscular Hemoglobin Concent 31.8 g/dl (32-36) RDW Standard Deviation 52.0 fL (36.4-46.3) RDW Coefficient of Variation 18.8 % (11.5-14.5) Mean Platelet Volume 9.7 fL (7.4-10.4) Anion Gap 7.0 mmol/L (3-11) Est Creatinine Clear Calc Drug Dose 66.5 ml/min Estimated GFR () 91.7 Estimated GFR (Non- 79.1 BUN/Creatinine Ratio 17.1 (10-20) Lactic Acid Level 0.9 mmol/L (0.4-2.0) Calcium Level 8.2 mg/dl (8.5-10.1) Test 03/04/16 11:40 03/04/16 16:39 03/04/16 20:31 03/04/16 20:36 Haptoglobin 32 MG/DL (43-212) Lactate Dehydrogenase 186 U/L (87-241) Bedside Glucose 244 mg/dl (70-99) 125 mg/dl (70-99) Test 03/05/16 05:41 03/05/16 07:08 03/05/16 07:17 03/05/16 11:42 Anion Gap 11.0 mmol/L (3-11) Est Creatinine Clear Calc Drug Dose 74.3 ml/min Estimated GFR () 99.2 Estimated GFR (Non- 85.6 BUN/Creatinine Ratio 12.2 (10-20) Estimated Average Glucose 157 mg/dl Hemoglobin A1c 7.1 % (4.5-5.6) Calcium Level 8.5 mg/dl (8.5-10.1) Magnesium Level 1.4 mg/dl (1.8-2.4) Iron Level 29 mcg/dl (35-175) Total Iron Binding Capacity 188 mcg/dl (250-450) Transferrin 144 mg/dl (200-360) Transferrin % Saturation 14 % (20-50) Ferritin 1001.0 ng/ml (8.0-388.0) Total Bilirubin 4.8 mg/dl (0.2-1) Aspartate Amino Transf (AST/SGOT) 27 U/L (15-37) Alanine Aminotransferase (ALT/SGPT) 33 U/L (12-78) Alkaline Phosphatase 368 U/L (45-117) Troponin I < 0.015 ng/ml (0-0.045) Total Protein 6.1 gm/dl (6.4-8.2) Albumin 2.0 gm/dl (3.4-5.0) Globulin 4.1 gm/dl (2.5-4.0) Albumin/Globulin Ratio 0.5 (0.9-2) Lipase 37 U/L (73-393) Vitamin B12 Level 572 pg/mL (211-911) Folate 7.60 ng/mL (>5.38) Thyroid Stimulating Hormone (TSH) 2.510 uIu/ml (0.300-4.500) Bedside Glucose 91 mg/dl (70-99) 126 mg/dl (70-99) White Blood Count 10.83 K/uL (4.8-10.8) Red Blood Count 3.64 M/uL (4.7-6.1) Hemoglobin 9.3 g/dL (14.0-18.0) Hematocrit 28.4 % (42-52) Mean Corpuscular Volume 78.0 fL (80-100) Mean Corpuscular Hemoglobin 25.5 pg (25-34) Mean Corpuscular Hemoglobin Concent 32.7 g/dl (32-36) Platelet Count 303 K/uL (130-400) Mean Platelet Volume 11.1 fL (7.4-10.4) Neutrophils (%) (Auto) 80.7 % Lymphocytes (%) (Auto) 8.6 % Monocytes (%) (Auto) 8.7 % Eosinophils (%) (Auto) 0.8 % Basophils (%) (Auto) 0.1 % Neutrophils # (Auto) 8.74 K/uL (1.4-6.5) Lymphocytes # (Auto) 0.93 K/uL (1.2-3.4) Monocytes # (Auto) 0.94 K/uL (0.11-0.59) Eosinophils # (Auto) 0.09 K/uL (0-0.5) Basophils # (Auto) 0.01 K/uL (0-0.2) RDW Standard Deviation 50.6 fL (36.4-46.3) RDW Coefficient of Variation 17.5 % (11.5-14.5) Immature Granulocyte % (Auto) 1.1 % Immature Granulocyte # (Auto) 0.12 K/uL (0.00-0.02) Activated Partial Thromboplast Time 26.3 SECONDS (21.0-31.0) Partial Thromboplastin Ratio 1.0 Date/Time Source Procedure Growth Status 03/03/16 00:00 Nasal MRSA DNA Surveillance Screen - Final Specimen Negative for MRSA by DNA Probe Complete Assessment & Plan (1) Pancreatic adenocarcinoma Status: Chronic Assessment & Plan: See above for a/p- diagnosis section. (2) Anemia Assessment & Plan: See above for a/p- diagnosis section.
[2016-03-06] VITALS (9 sets, daily range): BP systolic 128–152; BP diastolic 74–84; PULSE 64–114; TEMP 36.3–37.2; O2SAT 97–99
[2016-03-06] MEDS: PANCREAZE (LIPASE 10,500U) CAP PO SCH ×3 (07:20→16:19)
[2016-03-06] MEDS: INSULIN ASPART 100 UNITS/ML 3 ML PEN SC SCH ×4 (08:15→20:11)
[2016-03-06] MEDS: DOCUSATE SODIUM/SENNA 50/8.6MG TAB PO SCH (08:16)
[2016-03-06] MEDS: INSULIN GLARGINE SOLOSTAR 100 UNITS/ML 3 ML PEN SC SCH (08:16)
[2016-03-06] MEDS: TAMSULOSIN HCL 0.4 MG CAP PO SCH (08:16)
[2016-03-06] MEDS: ASCORBIC ACID 500 MG TAB PO SCH (08:17)
[2016-03-06] MEDS: AMLODIPINE BESYLATE 5 MG TAB PO SCH (08:17)
[2016-03-06] MEDS: POLYETHYLENE (MIRALAX) 17 GM PACK PO SCH (08:18)
[2016-03-06 08:29] LABS: HEMATOCRIT 29.1 % (42-52)
[2016-03-06] MEDS: PANTOprazole INJ 40 MG in SYRINGE 0 ML IV SCH ×2 (09:16→20:15)
--- NOTE | 2016-03-06 11:57 | Progress Note ---
Internal Med Progress Note Date of Service: Mar 06, 2016. Provider Documentation: SUBJECTIVE: The patient was seen and examined Denies any symptoms OBJECTIVE: Vital Signs-as noted below Exam: General-no distress at rest Eyes-normal ENT-normal Neck-supple Lungs-clear to auscultate bilaterally Heart-regular,no murmur appreciated Abdomen-Benign,no masses,bowel sound present Extremities-No edema Neuro-AAOx3 Lab data as noted below. ASSESSMENT & PLAN: SEVERE ANEMIA Presented with generalized weakness, worsening SOB and possible syncopal episode Colonoscopy 01/2016 WNL,FOBT is negative in ED Patient was on Lovenox for PE and CT chest/abd/pelvis no hematoma seen ASA and Lovenox are on hold on Protonix bid and received 4units of prbc Appreciate GI inputs-no colonoscopy now Hb remains stable >9 RECENTLY DIAGNOSED BILATERAL PE Bilateral PE on CT chest 02/24/16 holding ASA and Lovenox for now Lower extremity Doppler no DVT S/P IVC filter placement 03/05/16 Since Pancreatic cancer associated with DVT's- will discuss with Heme/onco about restarting Lovenox shots But anyway prognosis seems poor D/W Oncologist Started on Lovenox 40mg daily EXERTIONAL SOB-secondary cxr negative stable now Chest pain No ACS ECHO -unremarkable ABDOMINAL PAIN Likely secondary to pancreatic carcinoma Morphine PRN pain METASTATIC PANCREATIC ADENOCARCINOMA Diagnosed recently s/p biliary stent placement 02/27/16 heme/onco consulted- not a chemo candidate as bilirubin is high and poor functional staus consulted palliative care 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 holding metformin to cont Lantus and start ISS will monitor BSG AC HS GERD PPI HTN on Norvasc will monitor DVT PROPHYLAXIS Was on SCDs Started on SQ Lovenox CODE STATUS FULL CODE status per discussion with patient upon admission Disposition Likely discharge tomorrow Vital Signs: Date Time Temp Pulse Resp B/P Pulse Ox O2 Delivery O2 Flow Rate FiO2 03/06/16 11:22 36.3 65 16 146/80 99 Room Air 03/06/16 08:00 99 Room Air 03/06/16 07:20 36.7 64 16 139/75 99 Room Air 03/06/16 04:00 Room Air 03/06/16 03:55 36.8 82 20 152/74 99 Room Air 03/06/16 00:00 36.5 70 18 136/78 99 Room Air 03/05/16 23:59 Room Air 03/05/16 20:00 Room Air 03/05/16 19:30 36.8 86 18 129/68 95 03/05/16 15:50 Room Air 03/05/16 15:47 36.5 97 20 156/76 98 03/05/16 14:30 64 20 171/91 100 03/05/16 14:19 79 03/05/16 13:30 73 20 158/87 98 03/05/16 12:30 70 20 152/87 98 03/05/16 12:00 99 Room Air Lab Results: Results Past 24 Hours Test 03/05/16 12:01 03/05/16 16:16 03/05/16 16:20 03/05/16 19:50 Range/Units Hemoglobin 10.3 8.8 9.0 14.0-18.0 g/dL Hematocrit 31.5 26.4 27.0 42-52 % Bedside Glucose 302 70-99 mg/dl Test 03/05/16 19:57 03/06/16 06:42 03/06/16 08:07 03/06/16 11:24 Range/Units Bedside Glucose 109 107 129 70-99 mg/dl Hemoglobin 9.6 14.0-18.0 g/dL Hematocrit 29.1 42-52 %
[2016-03-06] MEDS ORDERED: ENOXAPARIN 40 MG/0.4 ML SYR SQ ONE (12:00)
[2016-03-07] VITALS (7 sets, daily range): BP systolic 138–163; BP diastolic 71–82; PULSE 55–66; TEMP 36.5–37.1; O2SAT 98–100
[2016-03-07 07:07] LABS: HEMATOCRIT 26.4 % (42-52); MEAN CELL VOLUME 77.9 fL (80-100); MEAN CORPUSCULAR HGB CONC 33.3 g/dl (32-36); MEAN PLATELET VOLUME 10.3 fL (7.4-10.4); PLATELET COUNT 261 K/uL (130-400); RED BLOOD COUNT 3.39 M/uL (4.7-6.1); WHITE BLOOD COUNT 11.28 K/uL (4.8-10.8)
[2016-03-07] MEDS: PANCREAZE (LIPASE 10,500U) CAP PO SCH ×3 (07:10→16:48)
[2016-03-07] MEDS: POLYETHYLENE (MIRALAX) 17 GM PACK PO SCH (08:08)
[2016-03-07] MEDS: AMLODIPINE BESYLATE 5 MG TAB PO SCH (08:09)
[2016-03-07] MEDS: ASCORBIC ACID 500 MG TAB PO SCH (08:09)
[2016-03-07] MEDS: DOCUSATE SODIUM/SENNA 50/8.6MG TAB PO SCH (08:09)
[2016-03-07] MEDS: TAMSULOSIN HCL 0.4 MG CAP PO SCH (08:10)
[2016-03-07] MEDS: INSULIN ASPART 100 UNITS/ML 3 ML PEN SC SCH ×4 (08:13→20:54)
[2016-03-07] MEDS: INSULIN GLARGINE SOLOSTAR 100 UNITS/ML 3 ML PEN SC SCH (08:14)
[2016-03-07] MEDS: PANTOprazole INJ 40 MG in SYRINGE 0 ML IV SCH ×2 (08:14→19:46)
[2016-03-07] MEDS: ENOXAPARIN 40 MG/0.4 ML SYR SQ SCH (08:15)
[2016-03-07] MEDS ORDERED: BISACODYL 10 MG SUPP PR STA ×2 (11:14→15:21)
--- NOTE | 2016-03-07 13:47 | Progress Note ---
Internal Med Progress Note Date of Service: Mar 07, 2016. Provider Documentation: SUBJECTIVE: The patient was seen and examined Denies any symptoms No bleeding from anywhere noted Hb remains stable OBJECTIVE: Vital Signs-as noted below Exam: General-no distress at rest Eyes-normal ENT-normal Neck-supple Lungs-clear to auscultate bilaterally Heart-regular,no murmur appreciated Abdomen-Benign,no masses,bowel sound present Extremities-No edema Neuro-AAOx3 Lab data as noted below. ASSESSMENT & PLAN: SEVERE ANEMIA Presented with generalized weakness, worsening SOB and possible syncopal episode Colonoscopy 01/2016 WNL,FOBT is negative in ED Patient was on Lovenox for PE and CT chest/abd/pelvis no hematoma seen ASA and Lovenox are on hold on Protonix bid and received 4units of prbc Appreciate GI inputs-no colonoscopy now Hb remains stable >8.8 Recheck in AM and if stable will discharge RECENTLY DIAGNOSED BILATERAL PE Bilateral PE on CT chest 02/24/16 holding ASA and Lovenox for now Lower extremity Doppler no DVT S/P IVC filter placement 03/05/16 Since Pancreatic cancer associated with DVT's- will discuss with Heme/onco about restarting Lovenox shots But anyway prognosis seems poor D/W Oncologist -advised prophylactic dose of Lovenox for now Started on Lovenox 40mg daily Will not initiate the full anticoagulation now Monitor Hb EXERTIONAL SOB-secondary cxr negative stable now Chest pain No ACS ECHO -unremarkable ABDOMINAL PAIN Likely secondary to pancreatic carcinoma Morphine PRN pain No more pain METASTATIC PANCREATIC ADENOCARCINOMA Diagnosed recently s/p biliary stent placement 02/27/16 heme/onco consulted- not a chemo candidate as bilirubin is high and poor functional status consulted palliative care 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 holding metformin to cont Lantus and start ISS will monitor BSG AC HS GERD PPI HTN on Norvasc will monitor DVT PROPHYLAXIS Was on SCDs Started on SQ Lovenox CODE STATUS FULL CODE status per discussion with patient upon admission Disposition Likely discharge tomorrow Vital Signs: Date Time Temp Pulse Resp B/P Pulse Ox O2 Delivery O2 Flow Rate FiO2 03/07/16 10:38 36.7 55 16 98 03/07/16 08:00 98 Room Air 03/07/16 07:47 36.7 55 16 138/77 98 03/07/16 04:00 36.8 63 18 145/73 100 Room Air 03/07/16 04:00 Room Air 03/07/16 00:04 37.1 57 20 139/71 100 03/06/16 23:59 Room Air 03/06/16 20:00 Room Air 03/06/16 19:28 37.2 70 20 128/77 98 Room Air 03/06/16 15:25 98 Room Air 03/06/16 15:23 36.8 114 18 139/84 97 Room Air Lab Results: Results Past 24 Hours Test 03/06/16 16:13 03/06/16 20:06 03/07/16 06:36 03/07/16 06:44 Range/Units Bedside Glucose 103 248 167 70-99 mg/dl White Blood Count 11.28 4.8-10.8 K/uL Red Blood Count 3.39 4.7-6.1 M/uL Hemoglobin 8.8 14.0-18.0 g/dL Hematocrit 26.4 42-52 % Mean Corpuscular Volume 77.9 80-100 fL Mean Corpuscular Hemoglobin 26.0 25-34 pg Mean Corpuscular Hemoglobin Concent 33.3 32-36 g/dl RDW Standard Deviation 50.3 36.4-46.3 fL RDW Coefficient of Variation 17.7 11.5-14.5 % Platelet Count 261 130-400 K/uL Mean Platelet Volume 10.3 7.4-10.4 fL Test 03/07/16 10:42 Range/Units Bedside Glucose 121 70-99 mg/dl
[2016-03-08 00:34] VITALS: BP 145/79; PULSE 62; TEMP 37.3; O2SAT 99
[2016-03-08 06:15] LABS: HEMATOCRIT 26.6 % (42-52); MEAN CELL VOLUME 77.8 fL (80-100); MEAN CORPUSCULAR HEMOGLOBIN 25.4 pg (25-34); MEAN CORPUSCULAR HGB CONC 32.7 g/dl (32-36); MEAN PLATELET VOLUME 10.2 fL (7.4-10.4); PLATELET COUNT 278 K/uL (130-400); RED BLOOD COUNT 3.42 M/uL (4.7-6.1); WHITE BLOOD COUNT 13.01 K/uL (4.8-10.8)
[2016-03-08 06:50] LABS: BUN/CREATININE RATIO 13.9 (10-20); CALCIUM 8.7 mg/dl (8.5-10.1); CREATININE 1.1 mg/dl (0.60-1.40); MAGNESIUM 1.8 mg/dl (1.8-2.4); POTASSIUM 4.5 mmol/L (3.5-5.1)
[2016-03-08 07:53] VITALS: BP 132/77; PULSE 67; TEMP 37.1; O2SAT 100
[2016-03-08] MEDS: PANTOprazole INJ 40 MG in SYRINGE 0 ML IV SCH (08:32)
[2016-03-08] MEDS: TAMSULOSIN HCL 0.4 MG CAP PO SCH (08:32)
[2016-03-08] MEDS: POLYETHYLENE (MIRALAX) 17 GM PACK PO SCH (08:32)
[2016-03-08] MEDS: AMLODIPINE BESYLATE 5 MG TAB PO SCH (08:33)
[2016-03-08] MEDS: INSULIN GLARGINE SOLOSTAR 100 UNITS/ML 3 ML PEN SC SCH (08:34)
[2016-03-08] MEDS: PANCREAZE (LIPASE 10,500U) CAP PO SCH ×2 (08:34→12:40)
[2016-03-08] MEDS: DOCUSATE SODIUM/SENNA 50/8.6MG TAB PO SCH (08:35)
[2016-03-08] MEDS: ASCORBIC ACID 500 MG TAB PO SCH (08:35)
[2016-03-08] MEDS: ENOXAPARIN 40 MG/0.4 ML SYR SQ SCH (08:36)
[2016-03-08] MEDS: INSULIN ASPART 100 UNITS/ML 3 ML PEN SC SCH ×2 (08:38→12:42)
--- NOTE | 2016-03-08 11:19 | Pharmacy Progress Note ---
Glycemic Control: Progress Nt Date of Service Mar 08, 2016. Scope Glycemic Pharmacist consulted by Kayli Alejandro on 03/03/16 for glycemic control and to write orders per [facility] inpatient glycemic control protocol. Objective Accuchecks BSG (last 24hrs): Test 03/07/16 16:48 03/07/16 19:41 03/08/16 05:25 03/08/16 07:42 Bedside Glucose 314 mg/dl (70-99) 77 mg/dl (70-99) 168 mg/dl (70-99) Random Glucose 168 mg/dl (70-99) Laboratory Data (last 24hrs) Test 03/08/16 05:25 Anion Gap 7.0 mmol/L BUN/Creatinine Ratio 13.9 Blood Urea Nitrogen 15 mg/dl Creatinine 1.10 mg/dl Potassium Level 4.5 mmol/L Sodium Level 131 mmol/L White Blood Count 13.01 K/uL HbA1c: Test 03/05/16 05:41 Hemoglobin A1c 7.1 % (4.5-5.6) H Recent Pertinent Medications Outpatient Anti-diabetic Regimen: * Lantus 10 units SC qAM * Novolog 5 units SC TIDM * Metformin 500 mg po BID * A1c = 9.6% on 02/23/16 The patient is currently receiving: * Basal insulin: Lantus 10 units every 24 hours - 1/2 dose for BSG < 100 mg/dL * Correctional Insulin: Novolog Correction per scale ACHS Goal Range: Low 110 mg/dL - High 140 mg/dL Correction Factor: 30 mg/dL/unit * Prandial insulin: Per carb ratio of 1 unit per 12 grams CHO consumed * Oral Agents: On hold Risk Factors for Insulin Resistance: * Recent Surgery: POD 3 s/p IVC filter placement * Diet: T2DM Assessment & Plan ASSESSMENT: * ADA & AACE recommend a goal blood sugar range 140-180 mg/dl for the majority of critically ill & non-critically ill patients. However, more stringent targets may be selected in individual cases. * 75 yo M with pancreatic cancer admitted w severe anemia. On Lovenox as outpatient for recent PE, now at reduced dose. S/p IVC filter placement 03/05. May be discharged soon. * BSG's trended down significantly yesterday from 314 to 77 mg/dL likely 2nd correction factor too tight. Will loosen. * SCr mostly stable and near baseline. Patient may be discharged soon. OK to resume metformin this PM. Will further loosen correction factor and carb ratio to prevent hypoglycemia as metformin will increase insulin sensitivity. PLAN FOR INPATIENT GLYCEMIC CONTROL: * Resume metformin 500 mg po BIDM starting this PM * Basal insulin with LANTUS 10 units SQ daily - 1/2 for BSG < 100 mg/dL * Correctional Insulin with NOVOLOG per scale ACHS or Q6hrs while NPO * Goal Range: Low 110 mg/dL - High 140 mg/dL * Loosen Correction Factor: 40 mg/dL/unit * Loosen Nutritional / Prandial insulin per carb ratio of 1 unit per 15 grams CHO consumed * Please note that the plan above was derived based on current level of insulin resistance and hospital stress. These recommendations are appropriate for inpatient admission only. Plan of care upon discharge will need to be reassessed to avoid potential outpatient hypo/hyperglycemia. Thank you.
--- NOTE | 2016-03-08 11:39 | Progress Note ---
Internal Med Progress Note Date of Service: Mar 08, 2016. Provider Documentation: SUBJECTIVE: The patient was seen and examined No bleeding from anywhere noted Complains of occasional right sided chest pain Hb remains stable >8 OBJECTIVE: Vital Signs-as noted below Exam: General-no distress at rest Eyes-normal ENT-normal Neck-supple Lungs-clear to auscultate bilaterally Heart-regular,no murmur appreciated Abdomen-Benign,mildly tender all over,no masses,bowel sound present Extremities-No edema Neuro-AAOx3 Lab data as noted below. ASSESSMENT & PLAN: SEVERE ANEMIA Presented with generalized weakness, worsening SOB and possible syncopal episode Colonoscopy 01/2016 WNL,FOBT is negative in ED Patient was on Lovenox for PE and CT chest/abd/pelvis no hematoma seen ASA and Lovenox are on hold on Protonix bid and received 4units of prbc Appreciate GI inputs-no colonoscopy now Hb remains stable >8.0 No more bleeding [facility] RECENTLY DIAGNOSED BILATERAL PE Bilateral PE on CT chest 02/24/16 holding ASA and Lovenox for now Lower extremity Doppler no DVT S/P IVC filter placement 03/05/16 Since Pancreatic cancer associated with DVT's- will discuss with Heme/onco about restarting Lovenox shots But anyway prognosis seems poor D/W Oncologist -advised prophylactic dose of Lovenox for now Started on Lovenox 40mg daily Will not initiate the full anticoagulation now Monitor Hb-stable METASTATIC PANCREATIC ADENOCARCINOMA Diagnosed recently s/p biliary stent placement 02/27/16 heme/onco consulted- not a chemo candidate as bilirubin is high and poor functional status Suggested Lovenox 40 mg SQ daily as preventive of Thrombosis EXERTIONAL SOB-secondary cxr negative stable now Chest pain No ACS ECHO -unremarkable ABDOMINAL PAIN Likely secondary to pancreatic carcinoma Morphine PRN pain No more pain 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 holding metformin to cont Lantus and start ISS will monitor BSG AC HS GERD PPI HTN on Norvasc will monitor DVT PROPHYLAXIS Was on SCDs Started on SQ Lovenox CODE STATUS FULL CODE status per discussion with patient upon admission Disposition Discharge today Vital Signs: Date Time Temp Pulse Resp B/P Pulse Ox O2 Delivery O2 Flow Rate FiO2 03/08/16 10:52 Room Air 03/08/16 07:53 37.1 67 18 132/77 100 Room Air 03/08/16 00:34 37.3 62 20 145/79 99 Room Air 03/08/16 00:20 Room Air 03/07/16 20:05 Room Air 03/07/16 16:00 Room Air 03/07/16 15:41 36.9 66 16 157/76 98 Room Air Lab Results: Results Past 24 Hours Test 03/07/16 16:48 03/07/16 19:41 03/07/16 23:20 03/08/16 05:25 Range/Units Bedside Glucose 314 77 70-99 mg/dl Stool Occult Blood POSITIVE NEGATIVE White Blood Count 13.01 4.8-10.8 K/uL Red Blood Count 3.42 4.7-6.1 M/uL Hemoglobin 8.7 14.0-18.0 g/dL Hematocrit 26.6 42-52 % Mean Corpuscular Volume 77.8 80-100 fL Mean Corpuscular Hemoglobin 25.4 25-34 pg Mean Corpuscular Hemoglobin Concent 32.7 32-36 g/dl RDW Standard Deviation 48.9 36.4-46.3 fL RDW Coefficient of Variation 17.1 11.5-14.5 % Platelet Count 278 130-400 K/uL Mean Platelet Volume 10.2 7.4-10.4 fL Sodium Level 131 136-145 mmol/L Potassium Level 4.5 3.5-5.1 mmol/L Chloride Level 98 98-107 mmol/L Carbon Dioxide Level 26 21-32 mmol/L Anion Gap 7.0 3-11 mmol/L Blood Urea Nitrogen 15 7-18 mg/dl Creatinine 1.10 0.60-1.40 mg/dl Est Creatinine Clear Calc Drug Dose 58.7 ml/min Estimated GFR () 76.8 Estimated GFR (Non- 66.2 BUN/Creatinine Ratio 13.9 10-20 Random Glucose 168 70-99 mg/dl Calcium Level 8.7 8.5-10.1 mg/dl Magnesium Level 1.8 1.8-2.4 mg/dl Test 03/08/16 07:42 Range/Units Bedside Glucose 168 70-99 mg/dl
[2016-03-08] MEDS ORDERED: LVNIS40 SQ (13:13)
--- NOTE | 2016-03-08 13:16 | Discharge Instructions ---
Discharge Instructions Admission Reason for Admission: Anemia Discharge Discharge Diagnosis / Problem: Acute Blood loss Anemia Discharge Goals Goal(s): Prevent Disease Progression Activity Recommendations Activity Limitations: resume your previous activity . Instructions / Follow-Up Instructions / Follow-Up As Per SCI provider Current Hospital Diet Patient's current hospital diet: Diabetes Type 2 Diet Discharge Diet Recommended Diet: Diabetes Type 2 Diet Procedures Procedures Performed: Inferior Vena Cava Filter Placement,Right Femoral Approach Fluoroscopy for Positioning Pending Studies Studies pending at discharge: no Laboratory Results Hemoglobin A1c Test 03/05/16 05:41 Range/Units Estimated Average Glucose 157 mg/dl Hemoglobin A1c 7.1 H 4.5-5.6 % Medical Emergencies . Who to Call and When: Medical Emergencies: If at any time you feel your situation is an emergency, please call 911 immediately. . Non-Emergent Contact Non-Emergency issues call your: Primary Care Provider . . "Provider Documentation" section prepared by Colby Rosario. VTE Core Measure Inpt VTE Proph given/why not?: Enoxaparin (Lovenox)SQ (Preventive dose)
[2016-03-08 13:40] LABS: HCT 29.3 % (38.5-50.0); HEMOGLOBIN A2 2.6 % (1.8-3.5); HGB 9.2 g/dL (13.2-17.1); MCH 25.1 pg (27.0-33.0); MCV 79.8 FL (80.0-100.0); RBC 3.67 Mill/uL (4.20-5.80); RDW 17.6 % (11.0-15.0)
[2016-03-08 13:57] VITALS: BP 132/77; PULSE 67; TEMP 37.1; O2SAT 100
[2016-03-08] MEDS ORDERED: METFORMIN HCL 500 MG TAB PO SCH (17:00)
[2016-03-09] MEDS ORDERED: INSULIN GLARGINE SOLOSTAR 100 UNITS/ML 3 ML PEN SC SCH (08:00)
--- NOTE | 2016-03-10 12:36 | Discharge Summary ---
Discharge Summary Admission Date: Mar 03, 2016 at 20:01 Discharge Date: Mar 08, 2016 Principal Diagnosis: Acute Blood Loss Anemia Secondary Diagnoses/Problems: Please see H&P Procedures: IVC filter placement Consultations: GI,Oncology and Vascular Medication Reconciliation New Medications: Enoxaparin (Enoxaparin Sodium) 40 Mg/0.4 Ml Inj 40 MG SQ QAM for 30 Days, #30 Continued Medications: Acetaminophen (Tylenol) 500 Mg Tab 1000 MG PO QID, TAB Amlodipine (Norvasc) 10 Mg Tab 10 MG PO DAILY, TAB Ascorbic Acid (Vitamin C) 500 Mg Tab 500 MG PO DAILY Insulin Aspart (Novolog) 100 Units/Ml Inj 5 UNITS SC TID Insulin Glargine (Lantus) 100 Unit/Ml Inj 10 UNITS SC QAM, VIAL Lactulose (Chronulac) 10 Gm/15 Ml Syrp 30 ML PO TID PRN for Constipation Metformin Hcl (Glucophage) 500 Mg Tab 500 MG PO BID, TAB Omeprazole (Prilosec) 20 Mg Capcr 20 MG PO DAILY, CAP Pancrelipase (Lipase-Protease- (Pancreaze) 1 Cap [place] 1 [place] [address] UNIT CAP Polyethylene Glycol 3350 (Bulk (Polyethylene Glycol 3350) 1 Pow Pow 17 GM PO DAILY, GM MIX WITH WATER AND DRINK ONCE A DAY Tamsulosin HCl (Tamsulosin HCl) 0.4 Mg Cap 0.4 MG PO DAILY Discontinued Medications: Aspirin (Aspirin EC Low Dose) 81 Mg Ectab 81 MG PO DAILY Enoxaparin (Lovenox) 80 Mg/0.8 Ml Inj 80 MG SC BID Admission Information HPI (per Admitting provider): This is a 75 y/o male with PMHx of recently diagnosed Metastatic pancreatic adenocarcinoma, recent h/o PE on Lovenox, Insulin dependent DM2, HTN and other problems as outlined below who presents to the ED from [facility] c/o persistent abdominal pain. Pt was recently admitted to [facility] from 02/22-02/27 for abdominal pain and worsening SOB. Pt was found to have pancreatic mass on abdominal US highly suspicious for malignancy. ERCP was completed 02/26 with biopsy and biliary stent placement. Biopsy was + for poorly differentiated adenocarcinoma. Pt was also found to have bilat PEs. He was discharged on Lovenox injections. Pt reports that since discharge he has had persistent abd pain. He describes the pain as lower achy abdominal pain with intermittent sharp pains. Sxs are assoc with generalized weakness, nausea and dry heaving but no vomiting. Nothing seems to make the pain better or worse. He has been able to eat with no issues. Patient also mentions that he is still has significant SOB with exertion. He states he is out of breath after a few steps. Today, he was getting out of the shower and got very SOB and dizzy. Someone had to help him back to his bed as he felt like he was going to pass out. He believes he briefly lost consciousness while he was lying in bed but he did not hit his head. Pt was then transferred to the ED for further evaluation and treatment. Pt denies fever/chills, chest pain, vomiting, constipation, diarrhea , hematochezia, melena, bladder issues, LE edema or calf pain. In the ED, vitals are stable. Pt is afebrile with leukocytosis >11k. HgB 6.3. lactic acid 2.7. Na+ 132. glucose 288. d-dimer 3k. CXR is negative. Pt will be admitted for further evaluation and treatment Past Medical/Surgical History Medical Problems: (1) Arthritis Status: Chronic (2) Diabetes mellitus, type II Status: Chronic (3) GERD (gastroesophageal reflux disease) Status: Chronic (4) History of pulmonary embolus (PE) Status: Chronic (5) HTN (hypertension) Status: Chronic (6) Pancreatic adenocarcinoma Status: Chronic Surgical Problems: (1) History of liver excision Permanent Comment: during cholecystectomy Status: Resolved (2) S/P cholecystectomy Status: Resolved Family History Patient reports no known family medical history. Social History Smoking Status: Former Smoker (60 pack year history; quit 02/23/16) Alcohol Use: none Drug Use: none Housing status: other (incarcerated) Multi-Drug Resistant Organisms History of MDRO: No Allergies Coded Allergies: Enalapril (Verified Allergy, Unknown, UNKNOWN, 02/23/16) Home Medications Scheduled Acetaminophen (Tylenol), 1,000 MG PO QID Amlodipine (Norvasc), 10 MG PO DAILY Ascorbic Acid (Vitamin C), 500 MG PO DAILY Aspirin (Aspirin EC Low Dose), 81 MG PO DAILY Enoxaparin (Lovenox), 80 MG SC BID Insulin Aspart (Novolog), 5 UNITS SC TID Insulin Glargine (Lantus), 10 UNITS SC QAM Metformin Hcl (Glucophage), 500 MG PO BID Omeprazole (Prilosec), 20 MG PO DAILY Pancrelipase (Lipase-Protease- (Pancreaze), 1 CAP PO WM Polyethylene Glycol 3350 (Bulk (Polyethylene Glycol 3350), 17 GM PO DAILY Tamsulosin HCl (Tamsulosin HCl), 0.4 MG PO DAILY Scheduled PRN Lactulose (Chronulac), 30 ML PO TID PRN for Constipation Review of Systems Constitutional: + fatigue, + fever, + weakness, No chills, No sweats Eyes: No worsening of vision ENT: No hearing loss Respiratory: + cough, + dyspnea on exertion, + shortness of breath, No dyspnea at rest, No hemoptysis Cardiovascular: No chest pain, No claudication, No edema, No palpitations Abdomen: + nausea, + pain, No GI bleeding, No constipation, No diarrhea, No vomiting Musculoskeletal: No calf pain, No swelling Genitourinary - Male: No dysuria, No hematuria Neurologic: + weakness Psychiatric: No depression symptoms Endocrine: + fatigue Hematologic / Lymphatic: No abnormal bleeding/bruising Integumentary: No new/changing skin lesions Physical Ex - H&P Physical Exam Vital Signs Date Time Temp Pulse Resp B/P Pulse Ox O2 Delivery O2 Flow Rate FiO2 03/03/16 19:19 64 20 129/72 100 Room Air 03/03/16 17:48 64 03/03/16 17:30 36.5 62 16 110/66 99 Room Air General Appearance: WD/WN, no apparent distress, + cachetic, + pertinent finding (Pt is laying in bed with guards at bedside ) Head: normocephalic, atraumatic Eyes: + pertinent finding (icteric) ENT: hearing grossly normal Neck: supple Respiratory/Chest: chest non-tender, lungs clear, normal breath sounds, no respiratory distress, + pertinent finding (no crackles or wheezes noted) Cardiovascular: regular rate, rhythm, no edema, no murmur Abdomen/GI: normal bowel sounds, soft, + tenderness (diffuse; worse RLQ) Back: normal inspection Extremities/Musculoskelatal: normal inspection, no calf tenderness, no pedal edema Neurologic/Psych: alert, normal mood/affect, oriented x 3 Skin: normal color, warm/dry Diagnostics - H&P Diagnostics Laboratory Results Results Past 24 Hours Test 03/03/16 17:55 Range/Units White Blood Count 11.44 4.8-10.8 K/uL Red Blood Count 2.69 4.7-6.1 M/uL Hemoglobin 6.3 14.0-18.0 g/dL Hematocrit 19.9 42-52 % Mean Corpuscular Volume 74.0 80-100 fL Mean Corpuscular Hemoglobin 23.4 25-34 pg Mean Corpuscular Hemoglobin Concent 31.7 32-36 g/dl Platelet Count 347 130-400 K/uL Mean Platelet Volume 11.3 7.4-10.4 fL Neutrophils (%) (Auto) 78.9 % Lymphocytes (%) (Auto) 6.5 % Monocytes (%) (Auto) 12.2 % Eosinophils (%) (Auto) 0.4 % Basophils (%) (Auto) 0.2 % Neutrophils # (Auto) 9.03 1.4-6.5 K/uL Lymphocytes # (Auto) 0.74 1.2-3.4 K/uL Monocytes # (Auto) 1.39 0.11-0.59 K/uL Eosinophils # (Auto) 0.05 0-0.5 K/uL Basophils # (Auto) 0.02 0-0.2 K/uL RDW Standard Deviation 52.9 36.4-46.3 fL RDW Coefficient of Variation 20.3 11.5-14.5 % Immature Granulocyte % (Auto) 1.8 % Immature Granulocyte # (Auto) 0.21 0.00-0.02 K/uL Polychromasia 1+ Hypochromasia PRESENT Target Cells 2+ Schistocytes 1+ Prothrombin Time 11.7 9.0-12.0 SECONDS Prothromb Time International Ratio 1.1 0.9-1.1 Activated Partial Thromboplast Time 27.6 21.0-31.0 SECONDS Partial Thromboplastin Ratio 1.1 D-Dimer 3000 0-500 ug/L FEU Sodium Level 132 136-145 mmol/L Potassium Level 4.3 3.5-5.1 mmol/L Chloride Level 100 98-107 mmol/L Carbon Dioxide Level 23 21-32 mmol/L Anion Gap 9.0 3-11 mmol/L Blood Urea Nitrogen 20 7-18 mg/dl Creatinine 1.20 0.60-1.40 mg/dl Est Creatinine Clear Calc Drug Dose 55.9 ml/min Estimated GFR () 69.1 Estimated GFR (Non- 59.6 BUN/Creatinine Ratio 16.4 10-20 Random Glucose 288 70-99 mg/dl Lactic Acid Level 2.7 0.4-2.0 mmol/L Calcium Level 8.6 8.5-10.1 mg/dl Total Bilirubin 5.1 0.2-1 mg/dl Direct Bilirubin 4.6 0-0.2 mg/dl Aspartate Amino Transf (AST/SGOT) 23 15-37 U/L Alanine Aminotransferase (ALT/SGPT) 41 12-78 U/L Alkaline Phosphatase 404 45-117 U/L Troponin I < 0.015 0-0.045 ng/ml Total Protein 6.6 6.4-8.2 gm/dl Albumin 2.2 3.4-5.0 gm/dl Lipase 35 73-393 U/L Diagnostic Radiology CXR IMPRESSION: No acute process. EKG EKG: sinus rhythm at 57 bpm with sinus arrhythmia and nonspec T wave abnormality ; escape complexes are no longer present when compared with EKG from 02/26/16 Impression - H&P Impression Assessment and Plan ANEMIA R/O GI BLEED pt presents with generalized weakness, worsening SOB and possible syncopal episode -admit to telemetry -RFs include anticoagulation use; no NSAID use -colonoscopy 01/2016 WNL -FOBT is negative in ED -Hgb currently 6.3 (8.1 02/28/16); will continue to monitor with H&H q 8h -transfuse 2 units PRBCs now and continue to transfuse PRN HgB <8 -start IVF and Protonix -check CT chest/abd/pelvis to eval for any intra-abdominal bleed -hold ASA and Lovenox -pt appears to be hemodynamically stable -continue to monitor closely EXERTIONAL SOB -likely secondary to combination anemia and recent PEs -CXR is negative -cont O2 supplementation -PT/OT ABDOMINAL PAIN -likely secondary to pancreatic carcinoma -check CT abd/pelvis -morphine PRN pain RECENTLY DIAGNOSED BILATERAL PE -bilat PE on CT chest 02/24/16 -hold ASA and Lovenox for now METASTATIC PANCREATIC ADENOCARCINOMA -diagnosed this month -s/p biliary stent placement 02/27/16 -cont pancreatic enzymes -not following with hem/onc INSULIN-DEPENDENT DM 2 -recent A1C 9.6 -hold metformin -cont Lantus and start ISS -monitor BSG AC HS GERD -cont PPI HTN -stable -cont Norvasc -monitor DVT PROPHYLAXIS -SCDs only in setting of possible GI bleed CODE STATUS -FULL CODE status per discussion with patient upon admission DISPO -Discharge and PT/OT eval placed -Pt seen in collaboration with Dr Saravia. Please see his addendum for further details. Thanks! Patient is a 75 Yr old male who was recently diagnosed to have metastatic pancreatic adenocarcinoma S/P biliary stent placement, PE on lovenox and aspirin and other comorbidities presents with persistent diffuse abdominal pain since the procedure, SOB on exertion, generalized tiredness, dizziness, presyncope and nausea for further eval and treatment. He was found to have Hb of 6.3, uncontrolled glucose levels and mild leukocytosis and lactic acid of 2.7 and elevated d-dimer. He denies any history of blood in stools or any other source of bleeding but noticed tea colored urine. Physical Exam: Vitals signs as noted above General: Chronically ill appearing, cachetic, no distress HEENT: NC/AT, EOMI, PERRLA, +Icteric Neck: Supple, No JVD CVS: S1, S2, No murmur Resp: CTA, no accessory muscle use, Normal breath sounds Abd: Soft, Mild tender diffusely, BS present, no guarding/rigidity ORDER DESK CLERK: No focal deficits Ext: No cyanosis, clubbing, edema Skin: Warm, Intact Assessment and Plan: Symptomatic Anemia/Abdominal pain: Unclear source of bleeding H/O metastatic Pancreatic adenocarcinoma On Aspirin and Lovenox at home for PE Will get CT Abd/Chest Transfuse PRBC, Monitor H&H Check FOBT, check UA Colonoscopy in Jan 2016: wnl Hold Aspirin, Lovenox IV fluids, Protonix Pain control Lactic acid elevated likely secondary to malignancy Recent Bilateral PE: Elevated d-dimer Hold lovenox for now Saturating well on RA Denies any chest pain Uncontrolled DM II: Last A1C 9.6 ISS, Lantus DVT Px: SCDs Agree with assessment and plan of Kayli Alejandro PA-C as above. VTE Prophylaxis VTE Risk Assessment Done? Y/N: Yes Risk Level: High Physical Exam (per Admitting): General Appearance: WD/WN, no apparent distress, + cachetic, + pertinent finding (Pt is laying in bed with guards at bedside ) Head: normocephalic, atraumatic Eyes: + pertinent finding (icteric) ENT: hearing grossly normal Neck: supple Respiratory/Chest: chest non-tender, lungs clear, normal breath sounds, no respiratory distress, + pertinent finding (no crackles or wheezes noted) Cardiovascular: regular rate, rhythm, no edema, no murmur Abdomen/GI: normal bowel sounds, soft, + tenderness (diffuse; worse RLQ) Back: normal inspection Extremities/Musculoskelatal: normal inspection, no calf tenderness, no pedal edema Neurologic/Psych: alert, normal mood/affect, oriented x 3 Skin: normal color, warm/dry Hospital Course SEVERE ANEMIA Presented with generalized weakness, worsening SOB and possible syncopal episode Colonoscopy 01/2016 WNL,FOBT is negative in ED Patient was on Lovenox for PE and CT chest/abd/pelvis no hematoma seen ASA and Lovenox are on hold on Protonix bid and received 4units of prbc Appreciate GI inputs-no colonoscopy now Hb remains stable >8.0 No more bleeding Will send back to [facility] today RECENTLY DIAGNOSED BILATERAL PE Bilateral PE on CT chest 02/24/16 holding ASA and Lovenox for now Lower extremity Doppler no DVT S/P IVC filter placement 03/05/16 Since Pancreatic cancer associated with DVT's- will discuss with Heme/onco about restarting Lovenox shots But anyway prognosis seems poor D/W Oncologist -advised prophylactic dose of Lovenox for now Started on Lovenox 40mg daily Will not initiate the full anticoagulation now Monitor Hb-stable METASTATIC PANCREATIC ADENOCARCINOMA Diagnosed recently s/p biliary stent placement 02/27/16 heme/onco consulted- not a chemo candidate as bilirubin is high and poor functional status Suggested Lovenox 40 mg SQ daily as preventive of Thrombosis EXERTIONAL SOB-secondary cxr negative stable now Chest pain No ACS ECHO -unremarkable ABDOMINAL PAIN Likely secondary to pancreatic carcinoma Morphine PRN pain No more pain 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 holding metformin to cont Lantus and start ISS will monitor BSG AC HS GERD PPI HTN on Norvasc will monitor DVT PROPHYLAXIS Was on SCDs Started on SQ Lovenox CODE STATUS FULL CODE status per discussion with patient upon admission Disposition Discharge today Total time spent on discharge = 35 minutes This includes examination of the patient, discharge planning, medication reconciliation, and communication with other providers. Discharge Instructions Admission Reason for Admission: Anemia Discharge Discharge Diagnosis / Problem: Acute Blood loss Anemia Discharge Goals Goal(s): Prevent Disease Progression Activity Recommendations Activity Limitations: resume your previous activity . Instructions / Follow-Up Instructions / Follow-Up As Per SCI provider Current Hospital Diet Patient's current hospital diet: Diabetes Type 2 Diet Discharge Diet Recommended Diet: Diabetes Type 2 Diet Procedures Procedures Performed: Inferior Vena Cava Filter Placement,Right Femoral Approach Fluoroscopy for Positioning Pending Studies Studies pending at discharge: no Laboratory Results Hemoglobin A1c Test 03/05/16 05:41 Range/Units Estimated Average Glucose 157 mg/dl Hemoglobin A1c 7.1 H 4.5-5.6 % Medical Emergencies . Who to Call and When: Medical Emergencies: If at any time you feel your situation is an emergency, please call 911 immediately. . Non-Emergent Contact Non-Emergency issues call your: Primary Care Provider . . "Provider Documentation" section prepared by Colby Rosario. VTE Core Measure Inpt VTE Proph given/why not?: Enoxaparin (Lovenox)SQ (Preventive dose) <Electronically signed by Colby Rosario M.D.> Additional Copies To [facility]
== END 2016-03-08 15:38 | disposition home or self-care (01) | DRG 166 ==
LOC: ENRESERVTM → ENRESERVDT → EDBD 17:16 → C.EDC 17:18 → C.2T 20:01 → C.4E 03-07 10:40
PROVIDERS: ADMIT Internal Medicine; ATTEND Internal Medicine
PROC: 06H03DZ Insertion of Intraluminal Device into Inferior Vena Cava, Percutaneous Approach (ICD-10-PCS; principal; 2016-03-05 13:00)
DX: I26.99 Other pulmonary embolism without acute cor pulmonale (principal); K83.1 Obstruction of bile duct; C25.9 Malignant neoplasm of pancreas, unspecified; C78.7 Secondary malignant neoplasm of liver and intrahepatic bile duct; K21.9 Gastro-esophageal reflux disease without esophagitis; E11.65 Type 2 diabetes mellitus with hyperglycemia; Z79.4 Long term (current) use of insulin; D50.9 Iron deficiency anemia, unspecified; I10 Essential (primary) hypertension; Z51.5 Encounter for palliative care; Z86.711 Personal history of pulmonary embolism; Z87.891 Personal history of nicotine dependence

== ENCOUNTER → 2016-03-23 | Outpatient (CLI) | payer OTHER ==
[~2016-03-23] MED LIST changes: +ACET-1256 PO; +AMLO-114 PO; +ASCA500 PO; -ASPCH81X PO; -CPR500 PO; +FLM4 PO; +GLC/500 PO; -GLC500 PO; +INSDGI SC; -INSDGIPEN SC; +LACT10SO17 PO; +LVNIS40 SQ; -LVNIS80 SQ; -MRLP17X PO; -NRV5 PO; +NVLG SC; -NVLGIPEN SC; +PANCCAP2 PO; -PANCCAP3 PO; +POLY1POW2 PO; +PRLSR20 PO
[2016-03-23 07:49] LABS: BASO % 0.2 %; BASO ABS # 0.02 K/uL (0-0.2); EOS % 0.2 %; IG% 0.2 %; LYMPH % 8.9 %; LYMPH ABS # 1.13 K/uL (1.2-3.4); MEAN CELL VOLUME 79.3 fL (80-100); MEAN CORPUSCULAR HEMOGLOBIN 25.9 pg (25-34); MONO % 6.1 %; NEUT % 84.4 %; PLATELET COUNT 214 K/uL (130-400); WHITE BLOOD COUNT 12.71 K/uL (4.8-10.8)
[2016-03-23 08:02] LABS: MEAN CORPUSCULAR HGB CONC 32.6 g/dl (32-36)
[2016-03-23 08:04] LABS: ALB/GLOB RATIO 0.4 (0.9-2); ALKALINE PHOSPHATASE 208 U/L (45-117); ALT/SGPT 18 U/L (12-78); AST/SGOT 21 U/L (15-37); BLOOD UREA NITROGEN 20 mg/dl (7-18); BUN/CREATININE RATIO 21.3 (10-20); CALCIUM 8.7 mg/dl (8.5-10.1); CARBON DIOXIDE 24 mmol/L (21-32); CHLORIDE 101 mmol/L (98-107); CREATININE 0.94 mg/dl (0.60-1.40); GLUCOSE 154 mg/dl (70-99); POTASSIUM 4.6 mmol/L (3.5-5.1); SODIUM 134 mmol/L (136-145)
[2016-03-23 08:38] LABS: COMPLETE YES; POIKILOCYTOSIS PRESENT; SPHEROCYTE 1+; TARGET CELLS 1+
== END ==
LOC: C.LABSPEC 07:42
DX: Z00.00 Encounter for general adult medical examination without abnormal findings (principal)

== ENCOUNTER → 2016-04-02 | Day surgery (SDC) | payer OTHER ==
[2016-04-02 14:28] VITALS: PULSE 83; TEMP 36.3
[2016-04-02 14:56] VITALS: BP 81/50; PULSE 83; TEMP 36.3; O2SAT 93
--- NOTE | 2016-04-02 16:38 | DIAGNOSTIC IMAGING REPORT ---
SINGLE VIEW CHEST CLINICAL HISTORY: PICC placement. FINDINGS: An AP, portable, upright chest radiograph is compared to chest x-ray and chest CT dated 03/03/2016. The examination is degraded by portable technique and patient rotation. A right PICC line is been placed. The catheter is coiled in the right axilla and the tip projects over the axillary vein. The heart is mildly enlarged and there is atherosclerotic calcification of the thoracic aorta. The pulmonary vasculature is noncongested. Emphysema and chronic interstitial thickening are similar to previous. Mild perihilar airspace opacities are observed. No large pleural effusion is seen and there is no pneumothorax. The skeletal structures are osteopenic. The bony thorax is grossly intact. IMPRESSION: 1. A right PICC line is coiled in the right axilla. The tip projects over the axillary vein. Repositioning is indicated. 2. Cardiomegaly and emphysema. 3. Mild perihilar airspace opacities are identified. Cortical clinically for evidence of an infectious/inflammatory pneumonitis. Electronically signed by: Alke Perry M.D. 04/02/2016 4:06 PM Dictated Date/Time: 04/02/2016 4:04 PM
== END | disposition home or self-care (01) ==
LOC: C.MTU 13:51
PROVIDERS: ATTEND Internal Medicine Critical Care Medicine
DX: C25.9 Malignant neoplasm of pancreas, unspecified (principal)